=== PATIENT | male | born 1980 | race African-American/Black ===

== ENCOUNTER 2016-10-01 03:24 | Emergency (ER) | payer OTHER ==
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
[2016-10-01] MEDS ORDERED: diazePAM 5 MG TABLET PO ONE (04:01)
[2016-10-01] MEDS ORDERED: diazePAM 5 MG TABLET ONE (04:13)
[2016-10-01 04:19] VITALS: PULSE 73; BMI 29.5
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
[2016-10-01 12:16] VITALS: BP 110/70; TEMP 97.3
== END 2016-10-01 11:48 | disposition home or self-care (01) ==
LOC: JER 03:24
DX: F41.1 Generalized anxiety disorder (principal); I25.10 Atherosclerotic heart disease of native coronary artery without angina pectoris; I10 Essential (primary) hypertension; Z95.5 Presence of coronary angioplasty implant and graft; Z87.891 Personal history of nicotine dependence; I25.2 Old myocardial infarction; I50.9 Heart failure, unspecified; Q87.418 Marfan syndrome with other cardiovascular manifestations; R01.1 Cardiac murmur, unspecified
CPT/HCPCS: 99283-25

== ENCOUNTER 2016-10-12 03:58 | Emergency (ER) | payer OTHER ==
[2016-10-12 04:11] VITALS: TEMP 98; BMI 25.5
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
[2016-10-12 07:20] VITALS: BP 119/69; PULSE 57
--- NOTE | 2016-10-12 07:45 | PDOC ---
*Physical Exam - Vital Signs Last Vital Signs Temp Pulse Resp BP Pulse Ox 98 F 57 L 14 119/69 100 10/12/16 04:09 10/12/16 07:19 10/12/16 07:19 10/12/16 07:19 10/12/16 07:19 - Physical Exam General Appearance: Yes: Nourished HEENT: positive: Normal Voice Respiratory/Chest: positive: Lungs Clear Cardiovascular: positive: Regular Rate Gastrointestinal/Abdominal: positive: Flat, Soft Musculoskeletal: positive: Normal Inspection Extremity: positive: Normal Inspection Integumentary: positive: Dry, Warm Neurologic: positive: Fully Oriented, Alert ED Treatment Course - LABORATORY CBC & Chemistry Diagram: 10/12/16 08:00 Medical Decision Making - Medical Decision Making 10/12/16 07:43 I have received report from ANTONY Taveras regarding this patient. Pt's initial chief complaint: anxiety and PSTD Pt's work up completed prior to sign out: ordered was labs and tox levels and monitor for symptoms Pt treatment given from prior staff: none at current Pt plan to be completed: PT needs evaluation by psych and labs to monitored. Dispo: pending psych 10/12/16 08:36 Labs remain pending. Second call out to Dr. Sears for psych evaluation and pending return phone call Pt was moved to holding area however, pt did not want to move within the ER He signed out AMA refusing to wait for psych and being moved. *DC/Admit/Observation/Transfer Diagnosis at time of Disposition: Anxiety disorder Qualifiers: Anxiety disorder type: unspecified anxiety disorder Qualified Code(s): F41.9 - Anxiety disorder, unspecified - Discharge Dispostion Disposition: AGAINST MEDICAL ADVICE Condition at time of disposition: Unchanged/Unknown
[2016-10-12 08:34] LABS: URINE MARIJUANA THC NEGATIVE ng/ml (CUTOFF=50)
[2016-10-12 08:41] LABS: BASOPHIL 0.7 % (0-2.0); EOSINOPHIL 3.4 % (0-4.5); MCH 28.9 pg (25.7-33.7); MCHC 33.1 g/dl (32.0-35.9); MEAN CELL VOLUME 87.2 fl (80-96); MEAN PLT VOLUME 7.6 fl (7.5-11.1); NEUTROPHILS 57.6 % (42.8-82.8); PLATELET COUNT 186 K/MM3 (134-434); RDW 16.5 % (11.9-15.9); WHITE BLOOD COUNT 4.9 K/mm3 (4.0-10.0)
[2016-10-12 08:41] LABS: URINE APPEARANCE CLEAR; URINE BILIRUBIN NEGATIVE (NEGATIVE); URINE BLOOD NEGATIVE (NEGATIVE); URINE COLOR YELLOW; URINE GLUCOSE (UA) NEGATIVE (NEGATIVE); URINE KETONE NEGATIVE (NEGATIVE); URINE LEUK ESTERASE NEGATIVE (NEGATIVE); URINE NITRITE NEGATIVE (NEGATIVE); URINE PROTEIN NEGATIVE (NEGATIVE); URINE UROBILINOGEN 2.0 E.U/dl E.U./dl (0.2-1.0)
[2016-10-12 08:46] LABS: ALBUMIN 3.4 g/dl (3.4-5.0); ANION GAP 7 (8-16); BILIRUBIN,TOTAL 0.4 mg/dL (0.2-1.0); CALCIUM 8.8 mg/dL (8.5-10.1); CO2 28 mmol/L (21-32); CREATININE 0.8 mg/dL (0.7-1.3); GLUCOSE,RANDOM 93 mg/dL (74-106); SGOT/AST 16 U/L (15-37); SGPT/ALT 13 U/L (12-78); TOT PROT 6.1 g/dl (6.4-8.2)
[2016-10-12 08:54] LABS: ALK PHOS 69 U/L (45-117); THYROID STIMULATING HORMONE 0.81 uIU/ml (0.358-3.74); TROPONIN I < 0.02 ng/ml (0.00-0.05)
[2016-10-12 09:04] LABS: SALICYLATE < 4.0 mg/dl (0.0-30.0)
== END 2016-10-12 08:59 | disposition left against medical advice (07) ==
LOC: JER 03:58
DX: F41.9 Anxiety disorder, unspecified (principal)
CPT/HCPCS: 36415; 80053; 80307; 81003; 82550; 82553; 84443; 84484; 85025; 99281-25

== ENCOUNTER → 2016-12-03 | Emergency (ER) | payer OTHER ==
[~2016-12-03] MED LIST: HYDROmorphone HCL CARPU-JECT 1 MG/1 ML DISP.SYRIN IVPUSH ONE; HYDROmorphone HCL CARPU-JECT 2 MG/1 ML DISP.SYRIN ONE
[2016-12-03 06:08] VITALS: TEMP 97.5; BMI 30.4
--- NOTE | 2016-12-03 06:39 | PDOC ---
History of Present Illness - General Chief Complaint: Chest Pain Stated Complaint: CHEST PAIN Time Seen by Provider: 12/03/16 06:33 History Source: Patient Exam Limitations: No Limitations - History of Present Illness Initial Comments: 12/03/16 06:35 This is a 36-year-old male who comes in complaining of chest pain radiating to his back. 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 Patient said pain is similar to his aortic dissection in the past. Patient said pain began at 11 PM but did not come in until he got off work at a [employer] job. Patient says he is ALLERGIC to iodine dye as well as multiple other ALLERGIES. Patient says that he has had 7 stents placed in his artery. PAST MEDICAL HISTORY: no significant history PAST SURGICAL HISTORY: no significant history FAMILY HISTORY: no pertinant history SOCIAL HISTORY: Pt lives with family and is employed. MEDICATIONS: reviewed ALLERGIES: As per nursing notes Review of Systems General: No fevers or chills, no weakness, no weight loss HEENT: No change in vision. No sore throat,. No ear pain CardioVascular: + chest pain, no shortness of breath Respiratory:No cough, or wheezing. Gastrointestinal: no nausea, vomitting, diarrhea or constipation, No rectal bleeding Genitourinary: No dysuria, hematuria, or frequency Musculoskeletal: No joint or muscle pain or swelling Neurologic: No headache, vertigo, dizziness or loss of consciousness Psychiatric: nor depression Skin: No rashes or easy bruising Endocrine: no increased thirst or abnormal weight change Allergic: no skin or latex allergy All other systems reviewed and normal Exam: General: Well-nourished well-developed individual, no acute distress HEENT: Throat: Normal, tonsils normal, no erythema or exudate Neck: Supple, no meningeal signs, no lymphadenopathy Eyes::Pupils equal reactive and round, extraocular motion intact Chest: Nontender to palpation Cardiac: S1-S2 normal, regular rate and rhythm, no murmurs rubs or gallops Respiratory: Lungs clear to auscultation bilateral Abdomen: Soft, nondistended, normal bowel sounds, nontender to palpation diffusely, no palpable pulsatile mass. Extremities: Warm, dry, no cyanosis, clubbing, or edema Skin: No rashes Neuro: Alert and oriented x3, nonfocal exam, grossly intact, normal gait Psych: Normal mood and affect 04/22/17 06:42 Case discussed in detail with oncoming Emergency Physician Dr. Gaviria, including history, physical exam and ancillary studies. Oncoming Emergency Physician has assumed care for the patient and will complete the evaluation and treatment. Patient is aware of the plan. Pt is clinically unchanged and stable. Past History - Past Medical History Allergies/Adverse Reactions: Allergies Allergy/AdvReac Type Severity Reaction Status Date / Time Fish Containing Products Allergy Intermediate Hives Verified 10/12/16 04:08 acetaminophen [From Tylenol] Allergy Verified 10/12/16 04:08 aspirin Allergy Verified 10/12/16 04:08 ibuprofen [From Motrin] Allergy Verified 10/12/16 04:08 iodine Allergy Verified 10/12/16 04:08 nitroglycerin Allergy Verified 10/12/16 04:08 NSAIDS (Non-Steroidal Allergy Verified 10/12/16 04:08 Anti-Inflamma pseudoephedrine Allergy Verified 10/12/16 04:08 CONTRAST Allergy Uncoded 10/12/16 04:08 Home Medications: Ambulatory Orders Atorvastatin Ca [Lipitor] 40 mg PO HS 05/08/15 Clopidogrel Bisulfate [Plavix -] 75 mg PO DAILY 05/08/15 Furosemide [Lasix -] 40 mg PO DAILY 05/08/15 Hydrochlorothiazide [Hctz -] 12.5 mg PO DAILY 12/09/15 Zolpidem Tartrate [Ambien] 10 mg PO HS 12/03/16 Cardiac Disorders: Yes (CHF, 7 STENTS, 7MI, murmur) HTN: Yes Hypercholesterolemia: Yes Psychiatric Problems: Yes (anxiety) Other medical history: MARPHANS - Surgical History Abdominal Surgery: Yes (AORTIC DISECTION) Cardiac Surgery: Yes (7 STENTS) - Family Disease History Family Disease History: Diabetes: Brother, Heart Disease: Father (marfans syndrome), Brother - Immunization History Immunization Up to Date: Yes - Psycho/Social/Smoking Cessation Hx Anxiety: No Suicidal Ideation: No Smoking History: Never smoked Have you smoked in the past 12 months: Yes Number of Cigarettes Smoked Daily: 0 'Breaking Loose' booklet given: 06/17/15 Hx Alcohol Use: No Drug/Substance Use Hx: No Substance Use Type: None Hx Substance Use Treatment: No *Physical Exam - Vital Signs Last Vital Signs Temp Pulse Resp BP Pulse Ox 97.5 F L 63 16 117/69 99 12/03/16 06:00 12/03/16 08:58 12/03/16 08:58 12/03/16 08:58 12/03/16 08:58 ED Treatment Course - LABORATORY CBC & Chemistry Diagram: 12/03/16 07:15 12/03/16 07:15 - ADDITIONAL ORDERS Additional order review: 12/03/16 07:15 RBC 4.30 MCV 87.2 MCHC 33.3 RDW 15.1 D MPV 7.3 L Neutrophils % 74.8 Lymphocytes % 16.3 D Monocytes % 8.4 Eosinophils % 0.1 D Basophils % 0.4 - Medications Given in the ED: ED Medications Discontinued Medications Generic Name Dose Route Start Last Admin Trade Name Freq PRN Reason Stop Dose Admin Hydromorphone HCl 1 mg 12/03/16 06:53 12/03/16 07:05 Dilaudid Injection - IVPUSH 12/03/16 06:54 1 mg ONCE ONE Administration Hydromorphone HCl 0.5 mg 12/03/16 08:25 12/03/16 08:57 Dilaudid Injection - IVPUSH 12/03/16 08:26 0.5 mg ONCE ONE Administration *DC/Admit/Observation/Transfer Diagnosis at time of Disposition: Chest pain - Discharge Dispostion Disposition: TRANSFER ACUTE CARE/OTHER HOSP Condition at time of disposition: Stable - Referrals Referrals: STAFF,NOT ON [Non Staff, Medical] -
--- NOTE | 2016-12-03 06:53 | PDOC ---
*Physical Exam - Vital Signs Last Vital Signs Temp Pulse Resp BP Pulse Ox 97.5 F L 67 16 112/69 98 12/03/16 06:00 12/03/16 06:00 12/03/16 06:00 12/03/16 06:00 12/03/16 06:00 - Physical Exam Comments: 12/03/16 06:51 Sign-out received from outgoing Emergency Physician Pt interviewed and examined Ancillary studies reviewed The patient is a 36 year old male with a significant past medical history of Marfan's disease, prior abdominal aortic dissection, coronary artery disease ( status post several stents), hypertension, hyperlipidemia, diastolic CHF, who presents to the emergency department after he had the acute onset of chest and epigastric pain, which radiates to his back. He describes it as sharp and tearing. It does not radiate to his arms, or further into his abdomen than his epigastrium. He denies nausea, diaphoresis, dyspnea. He states it is very similar to the pain that he had with his previous abdominal aortic dissection. He states that he is ALLERGIC to IV contrast dye. He states that his allergy is "anaphyplaxis" and qualifies that his "throat closes." I asked him about the CTA he had on 07/15/16. He said that this was the occasion of the anaphylaxis and says he got "hives all over" that his "throat closed" and that he "nearly ," despite receiving "lots of medications." I discussed the risks and benefits of premedication with Benadryl and Solumedrol and he refuses. I explained these things using lay terminology. I answered all of his questions. He adamantly refuses IV contrast and understands that , as we do not have ROSALIA available, we are unable to evaluate him for possible aortic dissection at this facility. He also understands that the delay in diagnosis could result in permanent disability and even . He adamantly refuses transfer to [facility]. I am paging his [facility] inside outside sales representative (Dr. Ellingtno) and [facility] inside outside sales representative (Dr. Martinez). Will not administer aspirin or anticoagulation at this point, given the possibility of dissection. His blood pressure is well-controlled, and he does not require any antihypertensives. Radial and Ulnar pulses full and symmetric DP and PT pulses full and symmetric Bilateral upper extremity blood pressures equal No upper or lower extremity deficits to light touch or temperature He states these having very severe pain, though he seems extremely comfortable. He states that he is ALLERGIC to aspirin, Tylenol, NSAIDs, and that only Dilaudid helps his pain. Will administer 1 mg of IV Dilaudid. Will attempt stat transfer to another facility that can obtain ROSALIA Will obtain non-contrast CT of the chest/abdomen and pelvis 12/03/16 07:[address] Bateman, cardiology He suggests transfer to [facility] Accepting physician will be Dr. Prashant Estrada and Dr. Prashant Cunningham CCU attending will contact us Records reviewed from [facility] CTA chest/abd/pelvis on 07/15/16 was within normal limits TTE on 07/16/16 was within normal limits Myocardial Perfusion Scan 10/28/15was within normal limits 12/03/16 07:16 The patient says that his pain is much improved after Dilaudid I placed a 20 gauge IV in his right external jugular vein BP remains in an acceptable range [facility] not [facility] Awaiting contact from [facility] Will repeat EKG 12/03/16 07:19 Repeat EKG noted, unchanged, without any ischemic changes Awaiting travnsfer 12/03/16 07:20 Case discussed the case with the [facility], "[place]" Dr. Estrada and Dr. Cunningham have accepted the patient to the CCU They are arranging for STAT transfer 12/03/16 07:49 The patient remains stable His pain has subsided 12/03/16 08:02 Case discussed with [employer] Salesperson at [facility] Awaiting transportation 12/03/16 08:07 EMS is 15 minutes out histotechnologist supervisor is here Will obtain STAT CT CAP 12/03/16 08:24 Labs noted, including d-dimer less than 200 Troponin pending We are awaiting transfer 12/03/16 08:31 ED Treatment Course - LABORATORY CBC & Chemistry Diagram: 12/03/16 07:15 12/03/16 07:15 Medical Decision Making - Critical Care Time Total Critical Care Time (minutes): 45 Critical Care Statement: The care of this patient involved high complexity decision making to prevent further life threatening deterioration of the patient 's condition and/or to evalute & treat vital organ system(s) failure or risk of failure. *DC/Admit/Observation/Transfer Diagnosis at time of Disposition: Chest pain - Discharge Dispostion Disposition: TRANSFER ACUTE CARE/OTHER HOSP Condition at time of disposition: Stable - Transfer to Acute Care Facility Receiving Facility: [facility] Accepting Physician:: Dr. Estrada
[2016-12-03 07:49] LABS: BASOPHIL 0.4 % (0-2.0); EOSINOPHIL 0.1 % (0-4.5); MCHC 33.3 g/dl (32.0-35.9); MEAN CELL VOLUME 87.2 fl (80-96); MEAN PLT VOLUME 7.3 fl (7.5-11.1); NEUTROPHILS 74.8 % (42.8-82.8); PLATELET COUNT 228 K/MM3 (134-434); RDW 15.1 % (11.9-15.9); WHITE BLOOD COUNT 7.2 K/mm3 (4.0-10.8)
[2016-12-03 08:04] LABS: CPK(DFH) 234 IU/L (38-174)
[2016-12-03 08:05] LABS: ALBUMIN 3.8 g/dl (3.5-5.0); ALK PHOS 50 U/L (32-92); ANION GAP 5 (8-16); BILIRUBIN,TOTAL 0.9 mg/dl (0.2-1.0); CALCIUM 9.1 mg/dl (8.4-10.2); CO2 25 mmol/L (22-28); COCKROFT - GAULT 180.24; CREATININE 0.9 mg/dl (0.6-1.3); GLUCOSE,RANDOM 91 mg/dl (74-106); SGOT/AST 20 U/L (10-42); SGPT/ALT 12 U/L (10-40); TOT PROT 6.4 g/dl (6.4-8.3)
[2016-12-03 08:58] VITALS: BP 117/69; PULSE 63
[2016-12-03 09:03] LABS: TROPONIN I (DFP) < 0.03 ng/ml (0.03-0.50)
[2016-12-03 10:12] LABS: CK MB 9.5 ng/ml (0.3-4.0)
--- NOTE | 2016-12-06 09:59 | EKG ---
Test Reason : Blood Pressure : / mmHG Vent. Rate : 052 BPM Atrial Rate : 052 BPM P-R Int : 172 ms QRS Dur : 092 ms QT Int : 420 ms P-R-T Axes : 074 089 046 degrees QTc Int : 390 ms SINUS BRADYCARDIA WHEN COMPARED WITH ECG OF 03-DEC-2016 06:19, NO SIGNIFICANT CHANGE WAS FOUND Confirmed by MD HUMPHREYS MARJORY ([id number]) on 12/06/2016 9:59:00 AM Referred By: VAIBHAV PEDRAZA Confirmed By:RICARDO HUMPHREYS MD
--- NOTE | 2016-12-06 10:00 | EKG ---
Test Reason : Blood Pressure : / mmHG Vent. Rate : 061 BPM Atrial Rate : 061 BPM P-R Int : 166 ms QRS Dur : 086 ms QT Int : 418 ms P-R-T Axes : 000 075 030 degrees QTc Int : 420 ms NORMAL SINUS RHYTHM WHEN COMPARED WITH ECG OF 15-JUL-2016 13:57, SINUS RHYTHM HAS REPLACED JUNCTIONAL RHYTHM Confirmed by MD HUMPHREYS MARJORY ([id number]) on 12/06/2016 10:00:04 AM Referred By: MD CARR Confirmed By:RICARDO HUMPHREYS MD
== END | disposition short-term general hospital (02) ==
LOC: FER 05:55
PROC: 3E033NZ Introduction of Analgesics, Hypnotics, Sedatives into Peripheral Vein, Percutaneous Approach (ICD-10-PCS; principal; 2016-12-03)
DX: R07.9 Chest pain, unspecified (principal); Q87.40 Marfan syndrome, unspecified; I10 Essential (primary) hypertension; I50.9 Heart failure, unspecified; Z95.5 Presence of coronary angioplasty implant and graft; I25.2 Old myocardial infarction; R01.1 Cardiac murmur, unspecified
CPT/HCPCS: 36415; 71250-TC; 74176-TC; 80053; 82550; 82553; 84484; 85025; 85379; 93005; 99283-25

== ENCOUNTER 2017-01-05 18:04 | Observation (INO) | payer OTHER ==
[2017-01-05 18:16] VITALS: BMI 29.8
--- NOTE | 2017-01-05 18:23 | PDOC ---
History of Present Illness <Louis Bhatia - Last Filed: 01/05/17 21:47> <Bailey Chaney - Last Filed: 01/05/17 22:03> - General Chief Complaint: Chest Pain Stated Complaint: CHEST PAIN Time Seen by Provider: 01/05/17 18:23 - History of Present Illness Initial Comments: 01/05/17 19:26 Patient is a 36 year old male with significant medical hx of marfan syndrome, HLD, HTN, CHF, aortic dissection, NM x 7, and cardiac stents x 7 who is presenting to the ED with constant chest pain since 5:45 PM. Patient describes his pain as ripping and tearing with radiation to his back. He rates his pain 10/10 in severity. Patient states his pain has been so severe that he neglected to eat today. Denies any fevers, chills, cough, shortness of breath, nausea, vomiting, diaphoresis, lightheadedness, or palpitations. Patient endorses recent ICU admission one month ago for chest pain. Printer Helper: Augustine Ellington MD Allergies: fish containing products, acetaminophen, aspirin, ibuprofen, iodine, nitroglycerin, NSAIDS, pseudoephedrin (Beni Chaneyantha) Past History - Past Medical History Cardiac Disorders: Yes (CHF, 7 STENTS, 7MI, murmur) HTN: Yes Hypercholesterolemia: Yes Psychiatric Problems: Yes (anxiety) - Surgical History Abdominal Surgery: Yes (AORTIC DISECTION) Cardiac Surgery: Yes (7 STENTS) - Family Disease History Family Disease History: Diabetes: Brother, Heart Disease: Father (marfans syndrome), Brother - Immunization History Immunization Up to Date: Yes - Psycho/Social/Smoking Cessation Hx Anxiety: No Suicidal Ideation: No Smoking History: Never smoked Have you smoked in the past 12 months: Yes Number of Cigarettes Smoked Daily: 0 Information on smoking cessation initiated: No 'Breaking Loose' booklet given: 06/17/15 Hx Alcohol Use: No Drug/Substance Use Hx: No Substance Use Type: None Hx Substance Use Treatment: No <Louis Bhatia - Last Filed: 01/05/17 21:47> <Bailey Chaney - Last Filed: 01/05/17 22:03> - Past Medical History Allergies/Adverse Reactions: Allergies Allergy/AdvReac Type Severity Reaction Status Date / Time Fish Containing Products Allergy Intermediate Hives Verified 01/05/17 18:17 acetaminophen [From Tylenol] Allergy Verified 01/05/17 18:17 aspirin Allergy Verified 01/05/17 18:17 ibuprofen [From Motrin] Allergy Verified 01/05/17 18:17 iodine Allergy Verified 01/05/17 18:17 nitroglycerin Allergy Verified 01/05/17 18:17 NSAIDS (Non-Steroidal Allergy Verified 01/05/17 18:17 Anti-Inflamma pseudoephedrine Allergy Verified 01/05/17 18:17 CONTRAST Allergy Uncoded 01/05/17 18:17 Home Medications: Ambulatory Orders Atorvastatin Ca [Lipitor] 40 mg PO HS 05/08/15 Clopidogrel Bisulfate [Plavix -] 75 mg PO HS 05/08/15 Furosemide [Lasix -] 40 mg PO DAILY 05/08/15 Hydrochlorothiazide [Hctz -] 12.5 mg PO DAILY 12/09/15 Review of Systems <Louis Bhatia - Last Filed: 01/05/17 21:47> <Bailey Chaney - Last Filed: 01/05/17 22:03> - Review of Systems Comments:: 01/05/17 19:27 CONSTITUTIONAL: No fever, no chills, no fatigue EYES: No visual changes ENT: No ear pain, no sore throat CARDIOVASCULAR: Chest pain. No palpitations RESPIRATORY: No cough, no SOB GI: No abdominal pain, no nausea, no vomiting, no constipation, no diarrhea GENITOURINARY: No dysuria, no frequency, no hematuria MUSKULOSKELETAL: No backpain, no joint pain, no myalgias SKIN: No rash NEURO: No headache (Bailey Chaney) *Physical Exam <Louis Bhatia - Last Filed: 01/05/17 21:47> <Bailey Chaney - Last Filed: 01/05/17 22:03> - Vital Signs Last Vital Signs Temp Pulse Resp BP Pulse Ox 97.9 F 66 18 123/76 99 01/05/17 18:13 01/05/17 19:05 01/05/17 19:05 01/05/17 19:05 01/05/17 19:05 - Physical Exam Comments: 01/05/17 19:54 CONSTITUTIONAL: Well-appearing; well-nourished; in no apparent distress HEAD: Normocephalic; atraumatic EYES: PERRL; EOM intact ENMT: External appears normal; normal oropharynx NECK: Supple; non-tender; no cervical lymphadenopathy CARD: Normal S1, S2; no murmurs, rubs, or gallops RESP: Normal chest excursion with respiration; breath sounds clear and equal bilaterally; no wheezes, rhonchi, or rales ABD: Soft, non-distended; non-tender; no palpable organomegaly, no palpable hernias EXT: Normal ROM in all four extremities; non-tender to palpation; distal pulses intact SKIN: Warm, dry, no rash NEURO: No focal neurological deficiencies. (Bailey Chaney) Heart Score/ECG Review <Louis Bhatia - Last Filed: 01/05/17 21:47> <Bailey Chaney - Last Filed: 01/05/17 22:03> #1 01/05/17 19:36 Unusual P axis and short OR, probable junctional rhythm Abnormal ECG (Bailey Chaney) ED Treatment Course - LABORATORY CBC & Chemistry Diagram: 01/05/17 18:39 01/05/17 19:10 <Louis Bhatia - Last Filed: 01/05/17 21:47> - LABORATORY CBC & Chemistry Diagram: 01/05/17 18:39 01/05/17 19:10 <Bailey Chaney - Last Filed: 01/05/17 22:03> - ADDITIONAL ORDERS Additional order review: Laboratory Results 01/05/17 01/05/17 01/05/17 19:10 19:10 19:10 INR 1.05 D-Dimer < 200 Sodium Potassium Chloride Carbon Dioxide Anion Gap BUN Creatinine Creat Clearance w eGFR Random Glucose Calcium Total Bilirubin AST ALT Alkaline Phosphatase Creatine Kinase Creatine Kinase Index CK-MB (CK-2) CK-MB (CK-2) Rel Index Cancelled Troponin I Total Protein Albumin Blood Type Antibody Screen Spec Expiration Date 01/05/17 01/05/17 01/05/17 19:10 19:10 18:43 INR D-Dimer Sodium 139 Potassium 4.0 Chloride 105 Carbon Dioxide 24 Anion Gap 10 BUN 14 Creatinine 0.9 Creat Clearance w eGFR > 60 Random Glucose 83 Calcium 8.9 Total Bilirubin 0.8 D AST 22 D ALT 19 D Alkaline Phosphatase 79 Creatine Kinase 263 D Creatine Kinase Index 2.1 CK-MB (CK-2) 5.650 H CK-MB (CK-2) Rel Index Troponin I < 0.02 Total Protein 6.7 Albumin 4.0 Blood Type A NEGATIVE A NEGATIVE Antibody Screen Negative Cancelled Spec Expiration Date Cancelled 01/05/17 01/05/17 18:39 18:39 INR Cancelled D-Dimer Sodium Cancelled Potassium Cancelled Chloride Cancelled Carbon Dioxide Cancelled Anion Gap Cancelled BUN Cancelled Creatinine Cancelled Creat Clearance w eGFR Cancelled Random Glucose Cancelled Calcium Cancelled Total Bilirubin Cancelled AST Cancelled ALT Cancelled Alkaline Phosphatase Cancelled Creatine Kinase Cancelled Creatine Kinase Index CK-MB (CK-2) CK-MB (CK-2) Rel Index Troponin I Cancelled Total Protein Cancelled Albumin Cancelled Blood Type Antibody Screen Spec Expiration Date 01/05/17 18:39 RBC 4.42 MCV 86.3 MCHC 32.8 RDW 16.2 H MPV 7.6 Neutrophils % 57.9 Lymphocytes % 31.8 Monocytes % 8.7 Eosinophils % 0.7 Basophils % 0.9 - RADIOLOGY Radiograph Interpretation: 01/05/17 19:34 Chest X-Ray Impression: Normal chest. Reported By: Rober Murphy MD 01/05/17 22:02 Aorta US Impression: No evidence of AAA. Reported By: Rober Murphy MD Chest CT Impression: No evidence of thoracic aortic aneurysm or acute pathology within the chest. Please see discussion. Reported By: Rober Murphy MD (Bailey Chaney) - Medications Given in the ED: ED Medications Discontinued Medications Generic Name Dose Route Start Last Admin Trade Name Surjitq PRN Reason Stop Dose Admin Morphine Sulfate 4 mg 01/05/17 19:31 01/05/17 19:49 Morphine Injection - IVPUSH 01/05/17 19:32 4 mg ONCE ONE Administration Medical Decision Making <Louis Bhatia - Last Filed: 01/05/17 21:47> <Bailey Chaney - Last Filed: 01/05/17 22:03> - Medical Decision Making 01/05/17 19:59 Patient is a 36-year-old male with history of Marfan syndrome, abdominal aortic dissection treated intravascularly and last [place], numerous coronary artery stents, CHF presents to the ER complaining of atraumatic, severe substernal chest discomfort radiating to the back which she describes as staring which started approximately one hour and 15 minutes prior to arrival. In the ER, patient is awake and alert, playing video games when not interacting with ER staff. Patient's chest x-ray reveals no evidence of cardiomegaly or mediastinal widening. Patient's heart rate is 63 with unusual P axis and short OR interval but no evidence of acute ischemia. Patient's blood pressure in both upper extremities is normal and equal. Patient's femoral and radial pulses are equal bilaterally. Review of patient's previous medical records indicates numerous admissions for similar complaints. In July of 2016 patient underwent a CTA of chest which revealed no evidence of aortic dissection or aneurysm. Patient claims that he developed severe anaphylactic-like reaction as a result of contrast infusion and is vehemently refusing any additional studies that involve IV contrast administration. Patient also claims that he is ALLERGIC to gadolinium (also anaphylactic in nature). Patient was transferred to an outside facility in November of this year when he presented with similar complaints the very ER. The patient states that after a period of observation in CCU, he did not undergo a ROSALIA and was released. I discussed the case with Dr. Heart of cardiology. At this time, the probability the patient is suffering an acute dissection is relatively low. Will obtain d-dimer and of less than 500 , the likelihood of a dissection is extremely low. Will also obtain a noncontrast CT of chest to evaluate for mediastinal hematoma or mediastinal widening. Will admit to telemetry for cardiac monitoring and patient will undergo a ROSALIA in the a.m. 01/05/17 21:19 D-dimer is less than 200. CT of chest shows no evidence of widened mediastinum or mediastinal hematoma. Aortic ultrasound shows no evidence of dissection. My suspicion for dissection is extremely low. With a negative d-dimer is highly unlikely. Will place an obstacle on telemetry for serial cardiac enzymes and ROSALIA in the a.m. (Louis Bhatia) *DC/Admit/Observation/Transfer - Discharge Dispostion Admit: Yes <Louis Bhatia - Last Filed: 01/05/17 21:47> <Bailey Chaney - Last Filed: 01/05/17 22:03> Diagnosis at time of Disposition: Chest pain Qualifiers: Chest pain type: unspecified Qualified Code(s): R07.9 - Chest pain, unspecified - Attestations Scribe Attestion: 01/05/17 19:27 Documentation prepared by Bailey Chaney, acting as medical editor for Louis Bhatia MD. (Bailey Chaney) Physician Attestion: 01/05/17 19:59 The documentation was prepared by the scribe under my direct supervision. I have reviewed the documentation which correctly represents the findings, medical decision-making and critical action taken by me. (Louis Bhatia)
[2017-01-05 18:51] LABS: BASOPHIL 0.9 % (0-2.0); EOSINOPHIL 0.7 % (0-4.5); MCH 28.3 pg (25.7-33.7); MCHC 32.8 g/dl (32.0-35.9); MEAN CELL VOLUME 86.3 fl (80-96); MEAN PLT VOLUME 7.6 fl (7.5-11.1); NEUTROPHILS 57.9 % (42.8-82.8); PLATELET COUNT 228 K/MM3 (134-434); RDW 16.2 % (11.9-15.9); WHITE BLOOD COUNT 4.2 K/mm3 (4.0-10.0)
[2017-01-05 19:30] LABS: INR 1.05 (0.82-1.09); PROTHROMBIN TIME (PATIENT) 11.6 SEC (9.98-11.88)
[2017-01-05] MEDS ORDERED: morphine CARPU-JECT 4 MG/1 ML DISP.SYRIN IVPUSH ONE ×2 (19:31→22:19)
[2017-01-05] MEDS ORDERED: morphine CARPU-JECT 4 MG/1 ML DISP.SYRIN ONE ×2 (19:32→22:41)
[2017-01-05 20:05] LABS: ANION GAP 10 (8-16); BILIRUBIN,TOTAL 0.8 mg/dL (0.2-1.0); CALCIUM 8.9 mg/dL (8.5-10.1); CO2 24 mmol/L (21-32); COCKROFT - GAULT 176.6; CREATININE 0.9 mg/dL (0.7-1.3); GLUCOSE,RANDOM 83 mg/dL (74-106); SGPT/ALT 19 U/L (12-78); TOT PROT 6.7 g/dl (6.4-8.2)
[2017-01-05 20:09] LABS: ALK PHOS 79 U/L (45-117); TROPONIN I < 0.02 ng/ml (0.00-0.05)
[2017-01-05 20:20] LABS: SGOT/AST 22 U/L (15-37)
--- NOTE | 2017-01-05 23:39 | HP ---
CHIEF COMPLAINT: chest pain PCP: outside HISTORY OF PRESENT ILLNESS: This is a 36 year old male with a past medical history of Marfan syndrome, HLD, HTN, CHF, aortic dissection (AAA), MIx7 presented to the ED with chest pain since 545pm. He describes pain as tearing and radiates to his back. He denies SOB, palpitations. Pt presented to ED 12/03 with similar symptoms and was transferred to [facility] for further evaluation. Pt states that they observed him in the CCU and then he went home without any intervention. ER course was notable for: (1) Troponin negative (2) CT chest w/o indication of TAA (3) bedside sono of aorta by ED MD without sign of dissection Recent Travel: pt denies PAST MEDICAL HISTORY: Marfan syndrome Hyperlipidemia Hypertension CHF abdominal aortic dissection MIx7 PAST SURGICAL HISTORY: stent x 7 aortic dissection 07/2015 s/p repair with anaphylaxis to contrast Social History: Smoking: pt denies Alcohol: pt denies Drugs: pt denies Family History: father and brother with Marfan brother with DM mother with bipolar, COPD, HTN, HLD, [place] x 3 Allergies Fish Containing Products Allergy (Intermediate, Verified 01/05/17 18:17) Hives acetaminophen [From Tylenol] Allergy (Verified 01/05/17 18:17) aspirin Allergy (Verified 01/05/17 18:17) ibuprofen [From Motrin] Allergy (Verified 01/05/17 18:17) iodine Allergy (Verified 01/05/17 18:17) nitroglycerin Allergy (Verified 01/05/17 18:17) NSAIDS (Non-Steroidal Anti-Inflamma Allergy (Verified 01/05/17 18:17) pseudoephedrine Allergy (Verified 01/05/17 18:17) CONTRAST Allergy (Uncoded 01/05/17 18:17) HOME MEDICATIONS: 3 Medication Instructions Recorded Atorvastatin Ca [Lipitor] 40 mg PO HS 05/08/15 Clopidogrel Bisulfate [Plavix -] 75 mg PO HS 05/08/15 Furosemide [Lasix -] 40 mg PO DAILY 05/08/15 Hydrochlorothiazide [Hctz -] 12.5 mg PO DAILY 12/09/15 REVIEW OF SYSTEMS CONSTITUTIONAL: Absent: fever, chills, diaphoresis, generalized weakness, malaise, loss of appetite, weight change HEENT: Absent: rhinorrhea, nasal congestion, throat pain, throat swelling, difficulty swallowing, mouth swelling, ear pain, eye pain, visual changes CARDIOVASCULAR: Present: chest pain Absent: syncope, palpitations, irregular heart rate, lightheadedness, peripheral edema RESPIRATORY: Absent: cough, shortness of breath, dyspnea with exertion, orthopnea, wheezing, stridor, hemoptysis GASTROINTESTINAL: Absent: abdominal pain, abdominal distension, nausea, vomiting, diarrhea, constipation, melena, hematochezia GENITOURINARY: Absent: dysuria, frequency, urgency, hesitancy, hematuria, flank pain, genital pain MUSCULOSKELETAL: Absent: myalgia, arthralgia, joint swelling, back pain, neck pain SKIN: Absent: rash, itching, pallor HEMATOLOGIC/IMMUNOLOGIC: Absent: easy bleeding, easy bruising, lymphadenopathy, frequent infections ENDOCRINE: Absent: unexplained weight gain, unexplained weight loss, heat intolerance, cold intolerance NEUROLOGIC: Absent: headache, focal weakness or paresthesias, dizziness, unsteady gait, seizure, mental status changes, bladder or bowel incontinence PSYCHIATRIC: Absent: anxiety, depression, suicidal or homicidal ideation, hallucinations. PHYSICAL EXAMINATION Vital Signs - 24 hr 3 01/05/17 01/05/17 18:13 19:05 Temperature 97.9 F Pulse Rate 67 Pulse Rate [ 66 Right Apical] Respiratory 18 18 Rate Blood Pressure 147/86 Blood Pressure 123/76 [Left Arm] Blood Pressure 126/79 [Right Arm] O2 Sat by Pulse 98 99 Oximetry (%) GENERAL: Awake, alert, and fully oriented, in no acute distress. HEAD: Normal with no signs of trauma. EYES: Pupils equal, round and reactive to light, extraocular movements intact, sclera anicteric, conjunctiva clear. No lid lag. EARS, NOSE, THROAT: Ears normal, nares patent, oropharynx clear without exudates. Moist mucous membranes. NECK: Normal range of motion, supple without lymphadenopathy, JVD, or masses. LUNGS: Breath sounds equal, clear to auscultation bilaterally. No wheezes, and no crackles. No accessory muscle use. HEART: Regular rate and rhythm, normal S1 and S2 without murmur, rub or gallop. ABDOMEN: Soft, nontender, not distended, normoactive bowel sounds, no guarding, no rebound, no masses. No hepatomegaly or splenomegaly. MUSCULOSKELETAL: Normal range of motion at all joints. No bony deformities or tenderness. No CVA tenderness. UPPER EXTREMITIES: 2+ pulses, warm, well-perfused. No cyanosis. No clubbing. No peripheral edema. LOWER EXTREMITIES: 2+ pulses, warm, well-perfused. No calf tenderness. No peripheral edema. NEUROLOGICAL: Cranial nerves II-XII intact. Normal speech. Normal gait. PSYCHIATRIC: Cooperative. Good eye contact. Appropriate mood and affect. SKIN: Warm, dry, normal turgor, no rashes or lesions noted, normal capillary refill. Laboratory Results - last 24 hr 3 01/05/17 01/05/17 01/05/17 18:39 18:39 18:39 WBC 4.2 RBC 4.42 Hgb 12.5 Hct 38.2 MCV 86.3 MCHC 32.8 RDW 16.2 H Plt Count 228 D MPV 7.6 Neutrophils % 57.9 Lymphocytes % 31.8 Monocytes % 8.7 Eosinophils % 0.7 Basophils % 0.9 INR Cancelled D-Dimer Sodium Cancelled Potassium Cancelled Chloride Cancelled Carbon Dioxide Cancelled Anion Gap Cancelled BUN Cancelled Creatinine Cancelled Creat Clearance w eGFR Cancelled Random Glucose Cancelled Calcium Cancelled Total Bilirubin Cancelled AST Cancelled ALT Cancelled Alkaline Phosphatase Cancelled Creatine Kinase Cancelled Creatine Kinase Index CK-MB (CK-2) CK-MB (CK-2) Rel Index Troponin I Cancelled Total Protein Cancelled Albumin Cancelled Blood Type Antibody Screen Spec Expiration Date 3 01/05/17 01/05/17 01/05/17 18:43 19:10 19:10 WBC RBC Hgb Hct MCV MCHC RDW Plt Count MPV Neutrophils % Lymphocytes % Monocytes % Eosinophils % Basophils % INR 1.05 D-Dimer < 200 Sodium 139 Potassium 4.0 Chloride 105 Carbon Dioxide 24 Anion Gap 10 BUN 14 Creatinine 0.9 Creat Clearance w eGFR > 60 Random Glucose 83 Calcium 8.9 Total Bilirubin 0.8 D AST 22 D ALT 19 D Alkaline Phosphatase 79 Creatine Kinase 263 D Creatine Kinase Index 2.1 CK-MB (CK-2) 5.650 H CK-MB (CK-2) Rel Index Cancelled Troponin I < 0.02 Total Protein 6.7 Albumin 4.0 Blood Type A NEGATIVE A NEGATIVE Antibody Screen Cancelled Negative Spec Expiration Date Cancelled ECG: Unusual P axis (both inverted and biphasic P waves present), possible junctional rhythm, rate 58, QTC 412, no acute ST/T changes Imaging: US/AORTA US History provided: Rule out AAA. Real-time and Doppler examination of the abdominal aorta demonstrates the following: The abdominal aorta is normal in position and caliber with no evidence of aneurysmal dilatation. Doppler imaging demonstrates normal velocity arterial flow. IMPRESSION: No evidence of AAA. CHEST CT WITHOUT CONTRAST HISTORY PROVIDED: Rule out dissection TECHNIQUE: Sequential axial images were obtained from the thoracic inlet through the domes of the diaphragm. Examination of the mediastinum demonstrates no evidence of mediastinal masses, fluid collections or lymphadenopathy. The heart is not enlarged. There is no evidence of thoracic aortic aneurysm. Evaluation for dissection cannot be made without the use of intravenous contrast. The lung shah are free of pulmonary masses, areas of acute consolidation or pleural effusions. Evaluation of the upper abdomen demonstrates no acute abnormalities. There is no evidence of acute bony pathology. IMPRESSION: No evidence of thoracic aortic aneurysm or acute pathology within the chest. Please see above discussion. CHEST X-RAY PORTABLE* HISTORY PROVIDED: Chest pain. A single frontal portable projection of the chest at 6:40 PM is submitted. The heart size is within normal limits. The lung shah are free of pulmonary infiltrates or pleural effusions. IMPRESSION: Normal chest. ASSESSMENT/PLAN: 36yM with PMH Marfan syndrome, AAA s/p repair, MIx7, HTN, HLD presented to the ED with chest pain. He is being admitted for further observation. Chest pain - trend troponin - continuous cardiac monitoring - low suspicition for TA dissection given normal d-dimer and above studies normal - will keep NPO for ROSALIA in am as per ED MD d/w cardiology - cardiology consult appreciated. HTN/CHF/HLD - cont home medications. BP well controlled, no s/s fluid overload CAD with stents - cont home plavix DVT PPX - low risk, expected LOS <48h, defer chemoprophylaxis FEN - tolerating po fluids, defer IV for now - BMP in am with troponin - low sodium diet until MN, then NPO Dispo: Pt currently requires inpatient observation for management of their emergent condition. Visit type - Emergency Visit Emergency Visit: Yes ED Registration Date: 01/06/17 Care time: The patient presented to the Emergency Department on the above date and was hospitalized for further evaluation of their emergent condition. - New Patient This patient is new to me today: Yes Date on this admission: 01/06/17 - Critical Care Critical Care patient: No
[2017-01-06] MEDS ORDERED: morphine CARPU-JECT 2 MG/1 ML DISP.SYRIN IVPUSH ONE (03:11)
[2017-01-06 03:23] LABS: TROPONIN I < 0.02 ng/ml (0.00-0.05)
[2017-01-06] MEDS ORDERED: morphine CARPU-JECT 2 MG/1 ML DISP.SYRIN ONE (03:28)
[2017-01-06 08:22] LABS: BASOPHIL 0.6 % (0-2.0); EOSINOPHIL 1.5 % (0-4.5); MCH 28.4 pg (25.7-33.7); MCHC 32.8 g/dl (32.0-35.9); MEAN CELL VOLUME 86.5 fl (80-96); MEAN PLT VOLUME 7.5 fl (7.5-11.1); NEUTROPHILS 43.3 % (42.8-82.8); PLATELET COUNT 187 K/MM3 (134-434); RDW 16.2 % (11.9-15.9); WHITE BLOOD COUNT 3.3 K/mm3 (4.0-10.0)
--- NOTE | 2017-01-06 09:20 | EKG ---
Test Reason : Blood Pressure : / mmHG Vent. Rate : 058 BPM Atrial Rate : 058 BPM P-R Int : 138 ms QRS Dur : 094 ms QT Int : 420 ms P-R-T Axes : 270 084 053 degrees QTc Int : 412 ms UNUSUAL P AXIS, POSSIBLE ECTOPIC ATRIAL BRADYCARDIA ABNORMAL ECG Confirmed by DANYA CUEVAS MD ([id number]) on 01/06/2017 9:19:53 AM Referred By: Confirmed By:DANYA CUEVAS MD
[2017-01-06 09:24] LABS: ANION GAP 8 (8-16); CALCIUM 8.6 mg/dL (8.5-10.1); CO2 27 mmol/L (21-32); COCKROFT - GAULT 176.6; CREATININE 0.9 mg/dL (0.7-1.3); GLUCOSE,RANDOM 79 mg/dL (74-106)
[2017-01-06] MEDS ORDERED: FUROSEMIDE 40 MG TABLET (FP) PO SCH (10:00)
[2017-01-06] MEDS ORDERED: HYDROCHLOROTHIAZIDE 12.5 MG CAPSULE (FP) PO SCH (10:00)
[2017-01-06] MEDS ORDERED: morphine CARPU-JECT 2 MG/1 ML DISP.SYRIN IVPUSH PRN (10:45)
--- NOTE | 2017-01-06 11:02 | CON.CARD ---
Cardiology Consult (text) - Consultation Consultation Note: cc: cp hpi: 36 m hx marfans, cad/mi/multiple pcis (per pt, no cardiology f/u as outpt) , htn, dchf, hld here with cp. Pt has chronic intermittent cp. It is central, sharp, moderate, and is also felt in central back. No sob, palps, dizzy, loc, pnd, orthopnea, le edema. He has this cp every few months and has been evaluated here in past for same. Had episode yesterday so came to ER. Today still with cp/back pain but less. pmh: per hpi psh: pci social: no tob fam: no premature cad or scd ros: per hpi; no fever, nvd, cough, saldaña, nasal congestion, rash, gib, hematuria, wt loss meds: Ambulatory Orders Atorvastatin Ca [Lipitor] 40 mg PO HS 05/08/15 Clopidogrel Bisulfate [Plavix -] 75 mg PO HS 05/08/15 Furosemide [Lasix -] 40 mg PO DAILY 05/08/15 Hydrochlorothiazide [Hctz -] 12.5 mg PO DAILY 12/09/15 pe: Vital Signs Period Temp Pulse Resp BP Sys/Aguilera Pulse Ox Last 24 Hr 97.8 F-98.2 F 58-70 14-20 92-147/54-86 97-99 nad no jvd rrr s1s2 no mrg cta bl nl eff aaox3 no le e/c/c abd nt nd pos bs no jaundice diaphoresis pos dp pt no carotid bruit Laboratory Last Values WBC 3.3 K/mm3 (4.0-10.0) L 01/06/17 07:35 RBC 4.36 M/mm3 (4.00-5.60) 01/06/17 07:35 Hgb 12.4 GM/dL (11.7-16.9) 01/06/17 07:35 Hct 37.7 % (35.4-49) 01/06/17 07:35 MCV 86.5 fl (80-96) 01/06/17 07:35 MCHC 32.8 g/dl (32.0-35.9) 01/06/17 07:35 RDW 16.2 % (11.9-15.9) H 01/06/17 07:35 Plt Count 187 K/MM3 (134-434) 01/06/17 07:35 MPV 7.5 fl (7.5-11.1) 01/06/17 07:35 Neutrophils % 43.3 % (42.8-82.8) D 01/06/17 07:35 Lymphocytes % 45.0 % (8-40) H D 01/06/17 07:35 Monocytes % 9.6 % (3.8-10.2) 01/06/17 07:35 Eosinophils % 1.5 % (0-4.5) D 01/06/17 07:35 Basophils % 0.6 % (0-2.0) 01/06/17 07:35 INR 1.05 (0.82-1.09) 01/05/17 19:10 D-Dimer < 200 ng/ml (<200-235) 01/05/17 19:10 Sodium 141 mmol/L (136-145) 01/06/17 07:35 Potassium 4.4 mmol/L (3.5-5.1) 01/06/17 07:35 Chloride 106 mmol/L (98-107) 01/06/17 07:35 Carbon Dioxide 27 mmol/L (21-32) 01/06/17 07:35 Anion Gap 8 (8-16) 01/06/17 07:35 BUN 14 mg/dL (7-18) 01/06/17 07:35 Creatinine 0.9 mg/dL (0.7-1.3) 01/06/17 07:35 Creat Clearance w eGFR > 60 (>60) 01/05/17 19:10 Random Glucose 79 mg/dL (74-106) 01/06/17 07:35 Calcium 8.6 mg/dL (8.5-10.1) 01/06/17 07:35 Magnesium 2.0 mg/dL (1.8-2.4) 01/06/17 07:35 Total Bilirubin 0.8 mg/dL (0.2-1.0) D 01/05/17 19:10 AST 22 U/L (15-37) D 01/05/17 19:10 ALT 19 U/L (12-78) D 01/05/17 19:10 Alkaline Phosphatase 79 U/L (45-117) 01/05/17 19:10 Creatine Kinase 209 IU/L (39-308) D 01/06/17 02:45 Creatine Kinase Index 2.1 % (0.0-5.0) 01/05/17 19:10 CK-MB (CK-2) 5.650 ng/ml (0.5-3.6) H 01/05/17 19:10 CK-MB (CK-2) Rel Index Cancelled 01/05/17 19:10 Troponin I < 0.02 ng/ml (0.00-0.05) 01/06/17 02:45 Total Protein 6.7 g/dl (6.4-8.2) 01/05/17 19:10 Albumin 4.0 g/dl (3.4-5.0) 01/05/17 19:10 Blood Type A NEGATIVE 01/05/17 19:10 Antibody Screen Negative 01/05/17 19:10 Spec Expiration Date Cancelled 01/05/17 18:43 mibi 10/2015: 11 mins exercise, no ecg changes, nl mpi, nl lvef echo 07/2016: nl lv/rv, mild pr, nl size ao root ct chest 12/2016: normal thoracic aorta, clear lungs cta chest 09/2015 and 07/2016: no dissection/aneurysm tele: sr/sb ecg 01/05/17: sr, 58, nl intervals, no ischemic changes a/p: 36 m hx marfans, cad/mi/multiple pcis (per pt, no cardiology f/u as outpt) , htn, dchf, hld here with cp. cp: -no signs acs -ce's negx2, ecg w/o ischemic changes -normal mibi 10/2015 for same cp -he has hx marfans so dissection was ruled out with cta in 09/2015 and 07/2016 so low suspicion that current sxs are from dissection -pt has allergy to contrast and refuses mra/cta now. will plan for aba today to r/o dissection. if aba unremarkable ok for dc from cardiac pov. cad/mi/pci: -as above -nl lvef on recent echo, no ischemia on recent mibi -cont home statin, plavix (after aba), hctz htn: -cont hctz chronic diastolic chf: -stable, cont po lasix hld: -cont statin
[2017-01-06] MEDS: morphine CARPU-JECT 4 MG/1 ML DISP.SYRIN IVPUSH PRN ×2 (11:32→18:21)
[2017-01-06 11:53] LABS: TROPONIN I < 0.02 ng/ml (0.00-0.05)
[2017-01-06] MEDS ORDERED: LIDOCAINE HCL/PF 2% SDV 5ML VIAL ONE (13:49)
[2017-01-06] MEDS ORDERED: PROPOFOL 20 ML ONE ×2 (13:49)
[2017-01-06] MEDS ORDERED: ESMOLOL HCL 10 ML ONE (13:51)
--- NOTE | 2017-01-06 15:09 | PROC ---
Transesophageal Echocardiogram - Pre-Procedure Indications: Assess Aorta Risks and Benefits Explained: Yes Consent on Chart: Yes - Procedure Procedure Done: in Endoscopy Suite Medication given: sedation per anesthesia Findings: No aortic dissection seen Remarks: Normal ROSALIA, see echo report for further details.
[2017-01-06 16:48] VITALS: TEMP 98.2
--- NOTE | 2017-01-06 16:57 | DS ---
Physical Exam: SUBJECTIVE: Patient seen and examined. PT is tired after procedure. OBJECTIVE: Vital Signs Period Temp Pulse Resp BP Sys/Aguilera Pulse Ox Last 24 Hr 97.4 F-98.2 F 51-70 12-20 92-144/40-84 96-100 PE Neuro: alert, awake, cn 2-12intact Pulm: CTAB CV: s1 s2 rrr no mrg Abd: s nt nd + bs Ext: warm, no le edema Laboratory Results - last 24 hr 01/06/17 01/06/17 01/06/17 02:45 02:45 07:35 WBC 3.3 L RBC 4.36 Hgb 12.4 Hct 37.7 MCV 86.5 MCHC 32.8 RDW 16.2 H Plt Count 187 MPV 7.5 Neutrophils % 43.3 D Lymphocytes % 45.0 H D Monocytes % 9.6 Eosinophils % 1.5 D Basophils % 0.6 Sodium Potassium Chloride Carbon Dioxide Anion Gap BUN Creatinine Random Glucose Calcium Magnesium Creatine Kinase 209 D CK-MB (CK-2) Rel Index Cancelled Troponin I < 0.02 01/06/17 01/06/17 01/06/17 07:35 07:35 07:35 WBC RBC Hgb Hct MCV MCHC RDW Plt Count MPV Neutrophils % Lymphocytes % Monocytes % Eosinophils % Basophils % Sodium 141 Potassium 4.4 Chloride 106 Carbon Dioxide 27 Anion Gap 8 BUN 14 Creatinine 0.9 Random Glucose 79 Calcium 8.6 Magnesium 2.0 Creatine Kinase 171 Cancelled CK-MB (CK-2) Rel Index 2.6 Troponin I < 0.02 Cancelled HOSPITAL COURSE: Date of Admission:01/06/17 Date of Discharge: 01/06/17 Minutes to complete discharge: 35 Discharge Summary Reason For Visit: CHEST PAIN Current Active Problems Chest pain (Acute) CAD (coronary artery disease) (Chronic) Hospital Course: Initial Hospital Course: Briefly, this 36 year old male with a past medical history of Marfan syndrome, HLD, HTN, CHF, aortic dissection (AAA), MIx7 presented to the ED with chest pain since 545pm. He described pain as tearing and radiates to his back. He denied SOB, palpitations. Pt presented to ED 12/03 with similar symptoms and was transferred to [facility] for further evaluation. Pt was observed him in the CCU and then he went home without any intervention. Subsequent Hospital Course/Progress Note/Discharge Summary by a/p: Assessment: 36yM with PMH Marfan syndrome, AAA s/p repair, MIx7, HTN, HLD presented to the ED with chest pain. He is being admitted for further observation. Plan: 1. Chest pain - hx marfans; dissection was ruled out with cta in 09/2015 and 07/2016 - r/o ND serial trops x3 negative, no ischemic changes - Recent ECHO: NL LVEF, no ischemia on recent stress 10/2105 - ROSALIA today 01/06: negative for aortic dissection 2. Hypotension - Likely from sedation - 1L bolus with appropriate rise 3. HTN/CHF/HLD - HCTZ 12.5mg daily 4. CAD with stents - Can resume home plavix 5. HLD - Lipitor 40mg daily 6. Chronic diastolic HF - Lasix 40mg daily Dispo: - Home with above meds pcp and cardiology follow up Condition: Stable - Instructions Diet, Activity, Other Instructions: Please return to the ED for any new, persistent, or worsening symptoms. Follow up with your PCP in 1 week Follow up with your primary systems software specialist Resume home medications as directed Disposition: HOME - Home Medications Comprehensive Discharge Medication List: Ambulatory Orders Atorvastatin Ca [Lipitor] 40 mg PO HS 05/08/15 Clopidogrel Bisulfate [Plavix -] 75 mg PO HS 05/08/15 Furosemide [Lasix -] 40 mg PO DAILY 05/08/15 Hydrochlorothiazide [Hctz -] 12.5 mg PO DAILY 12/09/15
[2017-01-06] MEDS ORDERED: SODIUM CHLORIDE 1,000 ML IV STA (17:16)
[2017-01-06 18:20] VITALS: BP 124/64; PULSE 54
[2017-01-06] MEDS ORDERED: ATORVASTATIN CA 40 MG TABLET (FP) PO SCH (22:00)
[2017-01-06] MEDS ORDERED: CLOPIDOGREL BISULFATE 75 MG TABLET (FP) PO SCH (22:00)
--- NOTE | 2017-01-08 20:38 | EKG ---
Test Reason : Blood Pressure : / mmHG Vent. Rate : 063 BPM Atrial Rate : 063 BPM P-R Int : 134 ms QRS Dur : 098 ms QT Int : 388 ms P-R-T Axes : -85 075 042 degrees QTc Int : 397 ms ECTOPIC ATRIAL RHYTHM POOR R WAVE PROGRESSION ABNORMAL ECG WHEN COMPARED WITH ECG OF 03-DEC-2016 07:18, ECTOPIC ATRIAL RHYTHM HAS REPLACED SINUS BRADYCARDIA Confirmed by MICHA GONZALEZ, TAMAR ([id number]) on 01/08/2017 8:38:27 PM Referred By: Confirmed By:TAMAR MUSE MD
--- NOTE | 2017-01-08 21:09 | EKG ---
Test Reason : Blood Pressure : / mmHG Vent. Rate : 045 BPM Atrial Rate : 045 BPM P-R Int : 192 ms QRS Dur : 092 ms QT Int : 428 ms P-R-T Axes : 020 096 054 degrees QTc Int : 370 ms SINUS BRADYCARDIA RIGHTWARD AXIS EARLY REPOLARIZATION BORDERLINE ECG WHEN COMPARED WITH ECG OF 05-JAN-2017 21:57, P AXIS HAS CHANGED Confirmed by TAMAR MUSE MD ([id number]) on 01/08/2017 9:08:51 PM Referred By: RENETTA COX Confirmed By:TAMAR MUSE MD
== END 2017-01-06 21:00 | disposition home or self-care (01) ==
LOC: JER 18:04 → JERBED 21:47 → UNDOADMOB 01-06 00:55 → J4W 01-06 02:21 → JERBED 01-06 02:21 → UNDODISOB 01-06 21:00
PROVIDERS: ADMIT Internal Medicine; ATTEND Nurse Practitioner Acute Care
PROC: 3E033NZ Introduction of Analgesics, Hypnotics, Sedatives into Peripheral Vein, Percutaneous Approach (ICD-10-PCS; 2017-01-06)
PROC: 3E0337Z Introduction of Electrolytic and Water Balance Substance into Peripheral Vein, Percutaneous Approach (ICD-10-PCS; 2017-01-06)
PROC: B24BZZ4 Ultrasonography of Heart with Aorta, Transesophageal (ICD-10-PCS; principal; 2017-01-06 14:00)
DX: R07.9 Chest pain, unspecified (principal); I10 Essential (primary) hypertension; I50.32 Chronic diastolic (congestive) heart failure; I25.2 Old myocardial infarction; I71.00 Dissection of unspecified site of aorta; I25.10 Atherosclerotic heart disease of native coronary artery without angina pectoris; R01.1 Cardiac murmur, unspecified; Q87.40 Marfan syndrome, unspecified; E78.5 Hyperlipidemia, unspecified; Z95.5 Presence of coronary angioplasty implant and graft; F41.9 Anxiety disorder, unspecified
CPT/HCPCS: 36415; 71010-TC; 71250-TC; 76775-TC; 80048; 80053; 82550; 82553; 83735; 84484; 85025; 85379; 85610; 86850; 86900; 86901; 93005; 93010; 93312; 93325; 99285-25; G0378

== ENCOUNTER → 2017-01-31 | Emergency (ER) | payer OTHER ==
[~2017-01-31] MED LIST changes: +ALBUTEROL SO4 2.5/IPRATROPIUM 0.5 INH SOL 3 ML VIAL.NEB. NEB STA; +HYDROmorphone HCL CARPU-JECT 1 MG/1 ML DISP.SYRIN ONE; -HYDROmorphone HCL CARPU-JECT 2 MG/1 ML DISP.SYRIN ONE; +methylPREDNISolone NA SUCC 125 MG/2 ML VIAL IVPB ONE; +methylPREDNISolone NA SUCC 125 MG/2 ML VIAL ONE
[2017-01-31 23:35] VITALS: BMI 26.7
--- NOTE | 2017-01-31 23:38 | PDOC ---
History of Present Illness - General History Source: Patient Exam Limitations: No Limitations - History of Present Illness Initial Comments: 01/31/17 23:58 The patient is a 36 year old male with significant past medical history of multiple allergies, Marfan syndrome, hyperlipidemia, hypertension, CHF, aortic dissection (AAA), and MIx7 who presents to the ED for allergic reaction 15 minutes prior to arrival. Patient reports one of his family members accidentally switch the container of his hydromorphone that he normally takes for his chronic pain. He states there were aspirin and tylenol in the container and after taking them he immediately felt throat tightness, chest tightness, and had wheezing. He gave himself an epipen and subsequently, his symptoms somewhat resolved, however he is still short of breath. Denies hives, tongue swelling, or mouth swelling. The patient denies fever, chills, cough, chest pain, abdominal pain, nausea, vomiting, and diarrhea. Allergies: acetaminophen, aspirin, ibuprofen, iodine, nitroglycerin, NSAIDS, pseudoephedrine Social History: No alcohol, tobacco, or drug use reported. Past Surgical History: s/p cardiac stents x7; aortic dissection 07/2015 s/p repair with anaphylaxis to contrast Family History: Father and brother with Marfan. Brother with DM. Mother with bipolar, COPD, HTN, HLD, [place] x 3 PCP: Dr. Brando Chaudhry Cardio: Dr. Augustine Ellington <Laura Bryant - Last Filed: 01/31/17 23:58> - General History Source: Patient <Jose Xavier - Last Filed: 02/01/17 05:56> - General Chief Complaint: Allergic Reaction Stated Complaint: ALLERGIC REACTION Time Seen by Provider: 01/31/17 23:34 Past History <Laura Bryant - Last Filed: 01/31/17 23:58> - Past Medical History Cardiac Disorders: Yes (CHF, 7 STENTS, 7MI, murmur) HTN: Yes Hypercholesterolemia: Yes Psychiatric Problems: Yes (anxiety) - Surgical History Abdominal Surgery: Yes (AORTIC DISECTION) Cardiac Surgery: Yes (7 STENTS) - Family Disease History Family Disease History: Diabetes: Brother, Heart Disease: Father (marfans syndrome), Brother - Immunization History Immunization Up to Date: Yes - Psycho/Social/Smoking Cessation Hx Anxiety: No Suicidal Ideation: No Smoking History: Never smoked Have you smoked in the past 12 months: No Number of Cigarettes Smoked Daily: 0 Information on smoking cessation initiated: No 'Breaking Loose' booklet given: 06/17/15 Hx Alcohol Use: No Drug/Substance Use Hx: No Substance Use Type: None Hx Substance Use Treatment: No <DonnynatJose - Last Filed: 02/01/17 05:56> - Past Medical History Allergies/Adverse Reactions: Allergies Allergy/AdvReac Type Severity Reaction Status Date / Time Fish Containing Products Allergy Intermediate Hives Verified 01/31/17 23:29 acetaminophen [From Tylenol] Allergy Verified 01/31/17 23:29 aspirin Allergy Verified 01/31/17 23:29 ibuprofen [From Motrin] Allergy Verified 01/31/17 23:29 iodine Allergy Verified 01/31/17 23:29 nitroglycerin Allergy Verified 01/31/17 23:29 NSAIDS (Non-Steroidal Allergy Verified 01/31/17 23:29 Anti-Inflamma pseudoephedrine Allergy Verified 01/31/17 23:29 CONTRAST Allergy Uncoded 01/31/17 23:29 Home Medications: Ambulatory Orders Atorvastatin Ca [Lipitor] 40 mg PO HS 05/08/15 Clopidogrel Bisulfate [Plavix -] 75 mg PO HS 05/08/15 Furosemide [Lasix -] 40 mg PO DAILY 05/08/15 Hydrochlorothiazide [Hctz -] 12.5 mg PO DAILY 12/09/15 Diphenhydramine HCl [Benadryl Capsules -] 25 mg PO TID #20 capsule 02/01/17 Hydromorphone [Dilaudid -] 2 mg PO Q6H #12 tablet MDD 4 02/01/17 Loratadine [Claritin] 10 mg PO DAILY #30 tablet 02/01/17 Methylprednisolone [Medrol Dose Dustin] 4 mg PO ASDIR #21 tablet 02/01/17 Review of Systems - Review of Systems Able to Perform ROS?: Yes Comments:: 01/31/17 23:59 CONSTITUTIONAL: Absent: fever, no chills, no fatigue EYES: Absent: visual changes ENT: +throat tightness Absent: ear pain, no sore throat CARDIOVASCULAR: Absent: chest pain, no palpitations RESPIRATORY: +chest tightness, SOB, wheezing Absent: cough GI: Absent: abdominal pain, no nausea, no vomiting, no constipation, no diarrhea GENITOURINARY: Absent: dysuria, no frequency, no hematuria MUSCULOSKELETAL: Absent: back pain, no arthralgia, no myalgia SKIN: Absent: rash NEURO: Absent: headache <Laura Bryant - Last Filed: 01/31/17 23:58> *Physical Exam - Vital Signs Last Vital Signs Temp Pulse Resp BP Pulse Ox 98.6 F 78 18 130/86 99 01/31/17 23:29 01/31/17 23:29 01/31/17 23:29 01/31/17 23:29 01/31/17 23:29 - Physical Exam Comments: 01/31/17 23:59 GENERAL: Well-appearing, well-nourished. No apparent distress. HEENT: Normocephalic, atraumatic. PERRL, EOM intact. CARDIOVASCULAR: Normal S1, S2. Regular rate and rhythm. PULMONARY: Mild respiratory distress. Wheezing. Hot potato voice. Mild conversational dyspnea. Slight retractions. No drooling. +stridor ABDOMEN: Soft, non-distended, non-tender. EXTREMITIES: Normal ROM in all four extremities. No gross deformities. SKIN: Warm, dry. No rash NEUROLOGICAL: No focal neurological deficits. <Laura Bryant - Last Filed: 01/31/17 23:58> - Vital Signs Last Vital Signs Temp Pulse Resp BP Pulse Ox 98.6 F 78 18 130/86 99 01/31/17 23:29 01/31/17 23:29 01/31/17 23:29 01/31/17 23:29 01/31/17 23:29 <Jose Xavier - Last Filed: 02/01/17 05:56> ED Treatment Course - LABORATORY CBC & Chemistry Diagram: 01/31/17 23:50 01/31/17 23:50 - ADDITIONAL ORDERS Additional order review: 01/31/17 23:50 RBC 4.19 MCV 86.2 MCHC 32.7 RDW 16.6 H MPV 7.6 Neutrophils % 82.8 D Lymphocytes % 10.3 D Monocytes % 5.8 Eosinophils % 0.6 Basophils % 0.5 - Medications Given in the ED: ED Medications Discontinued Medications Generic Name Dose Route Start Last Admin Trade Name Freq PRN Reason Stop Dose Admin Albuterol/Ipratropium 1 amp 01/31/17 23:36 01/31/17 23:44 Duoneb - NEB 01/31/17 23:37 1 amp ONCE STA Administration Diphenhydramine HCl 25 mg 01/31/17 23:35 01/31/17 23:42 Benadryl Injection - IVPB 01/31/17 23:36 25 mg ONCE ONE Administration Methylprednisolone Sodium Succinate 125 mg 01/31/17 23:35 01/31/17 23:42 Solu-Medrol - IVPB 01/31/17 23:36 125 mg ONCE ONE Administration <Laura Bryant - Last Filed: 01/31/17 23:58> - LABORATORY CBC & Chemistry Diagram: 01/31/17 23:50 01/31/17 23:50 <Jose Xavier - Last Filed: 02/01/17 05:56> Medical Decision Making - Medical Decision Making 02/01/17 03:40 Pt feeling better. Speaking more clearly. States throat is still a little scratchy, but not as before. Will continue to observe. Dr. Xavier: The scribe's documentation has been prepared under my direction and personally reviewed by me in its entirery. I confirm that the note above accurately reflects all work, treatment, procedures, and medical decision making performed by me. 02/01/17 05:54 Pt feels better. No hoarseness to pt voice. NO wheezing. Pt to be discharged. Medications transmitted to Pharmacy. <Jose Xavier - Last Filed: 02/01/17 05:56> *DC/Admit/Observation/Transfer - Attestations Scribe Attestion: 02/01/17 00:00 Documentation prepared by Laura Bryant, acting as medical management trainer for Jose Xavier MD/DO. <Laura Bryant - Last Filed: 01/31/17 23:58> - Discharge Dispostion Admit: No <Jose Xavier - Last Filed: 02/01/17 05:56> Diagnosis at time of Disposition: Allergic reaction caused by a drug Qualifiers: Encounter type: initial encounter Qualified Code(s): T78.40XA - Allergy, unspecified, initial encounter - Discharge Dispostion Disposition: HOME Condition at time of disposition: Stable - Prescriptions Prescriptions: Diphenhydramine HCl [Benadryl Capsules -] 25 mg PO TID #20 capsule Loratadine [Claritin] 10 mg PO DAILY #30 tablet Hydromorphone [Dilaudid -] 2 mg PO Q6H #12 tablet MDD 4 Methylprednisolone [Medrol Dose Dustin] 4 mg PO ASDIR #21 tablet - Referrals Referrals: Brando Chaudhry [Primary Care Provider] - - Patient Instructions Printed Discharge Instructions: DI for Adverse Drug Reaction -- Allergic
[2017-01-31 23:57] LABS: BASOPHIL 0.5 % (0-2.0); EOSINOPHIL 0.6 % (0-4.5); MCH 28.1 pg (25.7-33.7); MCHC 32.7 g/dl (32.0-35.9); MEAN CELL VOLUME 86.2 fl (80-96); MEAN PLT VOLUME 7.6 fl (7.5-11.1); NEUTROPHILS 82.8 % (42.8-82.8); PLATELET COUNT 237 K/MM3 (134-434); RDW 16.6 % (11.9-15.9)
[2017-02-01 00:14] LABS: INR 1.03 (0.82-1.09); PROTHROMBIN TIME (PATIENT) 11.3 SEC (9.98-11.88)
[2017-02-01 00:25] LABS: ALBUMIN 3.9 g/dl (3.4-5.0); ANION GAP 6 (8-16); BILIRUBIN,TOTAL 0.4 mg/dL (0.2-1.0); CO2 30 mmol/L (21-32); GLUCOSE,RANDOM 103 mg/dL (74-106); SGOT/AST 13 U/L (15-37); SGPT/ALT 17 U/L (12-78); TOT PROT 6.5 g/dl (6.4-8.2)
[2017-02-01 00:28] LABS: ALK PHOS 79 U/L (45-117); TROPONIN I < 0.02 ng/ml (0.00-0.05)
[2017-02-01 06:03] VITALS: BP 132/84; PULSE 80; TEMP 98.4
== END | disposition home or self-care (01) ==
LOC: JER 23:13
PROC: 3E0F7GC Introduction of Other Therapeutic Substance into Respiratory Tract, Via Natural or Artificial Opening (ICD-10-PCS; principal; 2017-01-31)
PROC: 3E033NZ Introduction of Analgesics, Hypnotics, Sedatives into Peripheral Vein, Percutaneous Approach (ICD-10-PCS; 2017-01-31)
PROC: 3E0333Z Introduction of Anti-inflammatory into Peripheral Vein, Percutaneous Approach (ICD-10-PCS; 2017-01-31)
PROC: 3E033GC Introduction of Other Therapeutic Substance into Peripheral Vein, Percutaneous Approach (ICD-10-PCS; 2017-01-31)
DX: T50.991A Poisoning by other drugs, medicaments and biological substances, accidental (unintentional), initial encounter (principal); R06.2 Wheezing; R07.89 Other chest pain; Y92.018 Other place in single-family (private) house as the place of occurrence of the external cause
CPT/HCPCS: 36415; 80053; 82550; 82553; 84484; 85025; 85610; 94640; 96374; 96375; 99282-25

== ENCOUNTER 2017-02-09 01:31 | Emergency (ER) | payer OTHER ==
[2017-02-09 01:43] VITALS: BMI 29.0
[2017-02-09] MEDS ORDERED: DEXAMETHASONE SOD PHOSPHATE 10 MG/1 ML VIAL IM ONE (01:46)
--- NOTE | 2017-02-09 01:47 | PDOC ---
History of Present Illness - General History Source: Patient Exam Limitations: No Limitations - History of Present Illness Initial Comments: 02/09/17 02:00 The patient is a 36 year old male with significant past medical history of multiple allergies, Marfan syndrome, hyperlipidemia, hypertension, CHF, aortic dissection (AAA), and MIx7 who presents to the ED for SOB prior to arrival. Patient reports he was at a hospital [facility] today where he had a CT scan with IV contrast, which he states he is allergic to. After going home, he suddenly became short of breath, gave himself 3 epipens, and subsequently came here to the ER. At time of evaluation, patient only has complaints of SOB. Denies mouth swelling, tongue swelling, throat tightness, or hives. The patient denies fever, chills, diaphoresis, cough, chest pain, and palpitations. The patient denies abdominal pain, nausea, vomiting, and diarrhea. Allergies: acetaminophen, aspirin, ibuprofen, iodine, nitroglycerin, NSAIDS, pseudoephedrine, contrast Social History: No alcohol, tobacco, or drug use reported. Past Surgical History: s/p cardiac stents x7; aortic dissection 07/2015 s/p repair with anaphylaxis to contrast Family History: Father and brother with Marfan. Brother with DM. Mother with bipolar, COPD, HTN, HLD, [place] x 3 PCP: Dr. Brando Chaudhry Cardio: Dr. Augustine Ellington <Laura Bryant - Last Filed: 02/09/17 01:59> - General History Source: Patient <Jose Xavier - Last Filed: 02/09/17 06:06> - General Chief Complaint: Allergic Reaction Stated Complaint: ALLERGIC REACTION Time Seen by Provider: 02/09/17 01:46 Past History <Laura Bryant - Last Filed: 02/09/17 01:59> - Past Medical History Cardiac Disorders: Yes (CHF, 7 STENTS, 7MI, murmur) HTN: Yes Hypercholesterolemia: Yes Psychiatric Problems: Yes (anxiety) - Surgical History Abdominal Surgery: Yes (AORTIC DISECTION) Cardiac Surgery: Yes (7 STENTS) - Family Disease History Family Disease History: Diabetes: Brother, Heart Disease: Father (marfans syndrome), Brother - Immunization History Immunization Up to Date: Yes - Psycho/Social/Smoking Cessation Hx Anxiety: No Suicidal Ideation: No Smoking History: Never smoked Have you smoked in the past 12 months: No Number of Cigarettes Smoked Daily: 0 Information on smoking cessation initiated: No 'Breaking Loose' booklet given: 06/17/15 Hx Alcohol Use: No Drug/Substance Use Hx: No Substance Use Type: None Hx Substance Use Treatment: No <DucJose - Last Filed: 02/09/17 06:06> - Past Medical History Allergies/Adverse Reactions: Allergies Allergy/AdvReac Type Severity Reaction Status Date / Time Fish Containing Products Allergy Intermediate Hives Verified 02/09/17 01:41 acetaminophen [From Tylenol] Allergy Verified 02/09/17 01:41 aspirin Allergy Verified 02/09/17 01:41 ibuprofen [From Motrin] Allergy Verified 02/09/17 01:41 iodine Allergy Verified 02/09/17 01:41 nitroglycerin Allergy Verified 02/09/17 01:41 NSAIDS (Non-Steroidal Allergy Verified 02/09/17 01:41 Anti-Inflamma pseudoephedrine Allergy Verified 02/09/17 01:41 CONTRAST Allergy Uncoded 02/09/17 01:41 Home Medications: Ambulatory Orders Atorvastatin Ca [Lipitor] 40 mg PO HS 05/08/15 Clopidogrel Bisulfate [Plavix -] 75 mg PO HS 05/08/15 Furosemide [Lasix -] 40 mg PO DAILY 05/08/15 Hydrochlorothiazide [Hctz -] 12.5 mg PO DAILY 12/09/15 Diphenhydramine HCl [Benadryl Capsules -] 25 mg PO TID #20 capsule 02/01/17 Hydromorphone [Dilaudid -] 2 mg PO Q6H #12 tablet MDD 4 02/01/17 Loratadine [Claritin] 10 mg PO DAILY #30 tablet 02/01/17 Methylprednisolone [Medrol Dose Dustin] 4 mg PO ASDIR #21 tablet 02/01/17 Review of Systems - Review of Systems Able to Perform ROS?: Yes Comments:: 02/09/17 02:00 CONSTITUTIONAL: Absent: fever, no chills, no fatigue EYES: Absent: visual changes ENT: Absent: ear pain, no sore throat CARDIOVASCULAR: Absent: chest pain, no palpitations RESPIRATORY: +SOB Absent: cough GI: Absent: abdominal pain, no nausea, no vomiting, no constipation, no diarrhea GENITOURINARY: Absent: dysuria, no frequency, no hematuria MUSCULOSKELETAL: Absent: back pain, no arthralgia, no myalgia SKIN: Absent: rash NEURO: Absent: headache <Laura Bryant - Last Filed: 02/09/17 01:59> *Physical Exam - Vital Signs Last Vital Signs Temp Pulse Resp BP Pulse Ox 98.5 F 80 16 131/88 100 02/09/17 01:41 02/09/17 01:41 02/09/17 01:41 02/09/17 01:41 02/09/17 01:41 - Physical Exam Comments: 02/09/17 02:00 GENERAL: Well-appearing, well-nourished. No apparent distress. HEENT: Normocephalic, atraumatic. PERRL, EOM intact. No drooling. No hot potato voice. CARDIOVASCULAR: Normal S1, S2. Regular rate and rhythm. PULMONARY: No respiratory distress. No conversational dyspnea. No retractions. Clear to auscultation bilaterally. No stridor. ABDOMEN: Soft, non-distended, non-tender. EXTREMITIES: Normal ROM in all four extremities. No gross deformities. SKIN: Warm, dry. No rash NEUROLOGICAL: No focal neurological deficits. <Laura Bryant - Last Filed: 02/09/17 01:59> - Vital Signs Last Vital Signs Temp Pulse Resp BP Pulse Ox 98.5 F 80 16 131/88 100 02/09/17 01:41 02/09/17 01:41 02/09/17 01:41 02/09/17 01:41 02/09/17 01:41 <Jose Xavier - Last Filed: 02/09/17 06:06> Medical Decision Making - Medical Decision Making 02/09/17 06:06 Dr. Xavier: The scribe's documentation has been prepared under my direction and personally reviewed by me in its entirery. I confirm that the note above accurately reflects all work, treatment, procedures, and medical decision making performed by me. <Jose Xavier - Last Filed: 02/09/17 06:06> *DC/Admit/Observation/Transfer - Attestations Scribe Attestion: 02/09/17 02:00 Documentation prepared by Laura Bryant, acting as medical assisting instructor for Jose Xavier MD/DO. <Laura Bryant - Last Filed: 02/09/17 01:59> - Discharge Dispostion Admit: No <Jose Xavier - Last Filed: 02/09/17 06:06> Diagnosis at time of Disposition: Allergic reaction - Discharge Dispostion Disposition: HOME Condition at time of disposition: Stable - Patient Instructions Printed Discharge Instructions: DI for General Allergic Reactions
[2017-02-09] MEDS ORDERED: DEXAMETHASONE SOD PHOSPHATE 10 MG/1 ML VIAL ONE (02:42)
[2017-02-09 06:19] VITALS: BP 126/77; PULSE 78; TEMP 97.9
== END 2017-02-09 06:21 | disposition home or self-care (01) ==
LOC: JER 01:31
PROC: 3E023GC Introduction of Other Therapeutic Substance into Muscle, Percutaneous Approach (ICD-10-PCS; principal; 2017-02-09)
DX: T78.40XA Allergy, unspecified, initial encounter (principal); X58.XXXA Exposure to other specified factors, initial encounter; Q87.40 Marfan syndrome, unspecified; E78.5 Hyperlipidemia, unspecified; I10 Essential (primary) hypertension; I50.9 Heart failure, unspecified; I25.2 Old myocardial infarction; Z95.5 Presence of coronary angioplasty implant and graft
CPT/HCPCS: 99281-25

== ENCOUNTER 2017-02-23 22:48 | Emergency (ER) | payer OTHER ==
[2017-02-23] MEDS ORDERED: DEXAMETHASONE SOD PHOSPHATE 10 MG/1 ML VIAL IM ONE (22:55)
--- NOTE | 2017-02-23 22:55 | PDOC ---
History of Present Illness - General Chief Complaint: Allergic Reaction Stated Complaint: ALLERGIC RX Time Seen by Provider: 02/23/17 22:54 History Source: Patient Exam Limitations: No Limitations - History of Present Illness Initial Comments: 02/23/17 22:57 This is a 36-year-old male who comes in complaining that he accidentally swallowed 800 mg of Motrin taking they were his Dilaudid and he says he is ALLERGIC to ibuprofen. Patient says that he has an anaphylactic reaction to ibuprofen if he takes it. Patient in the emergency room however was noted to have normal blood pressure and normal heart rate. Patient took the ibuprofen approximately 20 minutes prior to coming into the emergency room. Patient vitals were otherwise normal with a normal O2 sats and no acute respiratory distress. There was no rash or any other sign of ALLERGIC reaction. PAST MEDICAL HISTORY: no significant history PAST SURGICAL HISTORY: no significant history FAMILY HISTORY: no pertinant history SOCIAL HISTORY: Pt lives with family and is employed. MEDICATIONS: reviewed ALLERGIES: As per nursing notes Review of Systems General: No fevers or chills, no weakness, no weight loss HEENT: No change in vision. No sore throat,. No ear pain CardioVascular: No chest pain or shortness of breath Respiratory:No cough, or wheezing. Gastrointestinal: no nausea, vomitting, diarrhea or constipation, No rectal bleeding Genitourinary: No dysuria, hematuria, or frequency Musculoskeletal: No joint or muscle pain or swelling Neurologic: No headache, vertigo, dizziness or loss of consciousness Psychiatric: nor depression Skin: No rashes or easy bruising Endocrine: no increased thirst or abnormal weight change Allergic: no skin or latex allergy All other systems reviewed and normal Exam: General: Well-nourished well-developed individual, no acute distress HEENT: Throat: Normal, tonsils normal, no erythema or exudate, there is no angioedema of the posterior oropharynx Neck: Supple, no meningeal signs, no lymphadenopathy Eyes::Pupils equal reactive and round, extraocular motion intact Chest: Nontender to palpation Cardiac: S1-S2 normal, regular rate and rhythm, no murmurs rubs or gallops Respiratory: Lungs clear to auscultation bilateral, there is very mild wheezing bilateral but good air entry and no use of accessory muscles Abdomen: Soft, nondistended, normal bowel sounds, nontender to palpation diffusely Extremities: Warm, dry, no cyanosis, clubbing, or edema Skin: No rashes Neuro: Alert and oriented x3, nonfocal exam, grossly intact, normal gait Psych: Normal mood and affect 02/23/17 22:59 Patient will be given Benadryl, Decadron and a DuoNeb and observed for one to 2 hours to make sure symptoms do not develop 02/23/17 23:49 Reevaluation Wheezing is resolved at this point patient is comfortable vitals are still normal. 02/24/17 00:43 Patient remains asymptomatic vitals remained stable patient discharged home with prescription for Medrol Dosepak and told to continue Benadryl as needed. Past History - Past Medical History Allergies/Adverse Reactions: Allergies Allergy/AdvReac Type Severity Reaction Status Date / Time Fish Containing Products Allergy Intermediate Hives Verified 02/09/17 01:41 acetaminophen [From Tylenol] Allergy Verified 02/09/17 01:41 aspirin Allergy Verified 02/09/17 01:41 ibuprofen [From Motrin] Allergy Verified 02/09/17 01:41 iodine Allergy Verified 02/09/17 01:41 nitroglycerin Allergy Verified 02/09/17 01:41 NSAIDS (Non-Steroidal Allergy Verified 02/09/17 01:41 Anti-Inflamma pseudoephedrine Allergy Verified 02/09/17 01:41 CONTRAST Allergy Uncoded 02/09/17 01:41 Home Medications: Ambulatory Orders Atorvastatin Ca [Lipitor] 40 mg PO HS 05/08/15 Clopidogrel Bisulfate [Plavix -] 75 mg PO HS 05/08/15 Furosemide [Lasix -] 40 mg PO DAILY 05/08/15 Hydrochlorothiazide [Hctz -] 12.5 mg PO DAILY 12/09/15 Diphenhydramine HCl [Benadryl Capsules -] 25 mg PO TID #20 capsule 02/01/17 Hydromorphone [Dilaudid -] 2 mg PO Q6H #12 tablet MDD 4 02/01/17 Loratadine [Claritin] 10 mg PO DAILY #30 tablet 02/01/17 Methylprednisolone [Medrol Dose Dustin] 4 mg PO ASDIR #21 tablet 02/01/17 Methylprednisolone [Medrol Dose Dustin] 4 mg PO ASDIR #21 tablet 02/23/17 Cardiac Disorders: Yes (CHF, 7 STENTS, 7MI, murmur) HTN: Yes Hypercholesterolemia: Yes Psychiatric Problems: Yes (anxiety) - Surgical History Abdominal Surgery: Yes (AORTIC DISECTION) Cardiac Surgery: Yes (7 STENTS) - Family Disease History Family Disease History: Diabetes: Brother, Heart Disease: Father (marfans syndrome), Brother - Immunization History Immunization Up to Date: Yes - Psycho/Social/Smoking Cessation Hx Anxiety: No Suicidal Ideation: No Smoking History: Never smoked Have you smoked in the past 12 months: No Number of Cigarettes Smoked Daily: 0 'Breaking Loose' booklet given: 06/17/15 Hx Alcohol Use: No Drug/Substance Use Hx: No Substance Use Type: None Hx Substance Use Treatment: No *DC/Admit/Observation/Transfer Diagnosis at time of Disposition: Acute allergic reaction Qualifiers: Encounter type: initial encounter Qualified Code(s): T78.40XA - Allergy, unspecified, initial encounter - Discharge Dispostion Disposition: HOME Condition at time of disposition: Stable Admit: No - Prescriptions Prescriptions: Methylprednisolone [Medrol Dose Dustin] 4 mg PO ASDIR #21 tablet - Referrals Referrals: STAFF,NOT ON [Primary Care Provider] - - Patient Instructions Printed Discharge Instructions: DI for Adverse Drug Reaction -- Allergic Additional Instructions: In the future do not let anyone give your medication make sure that you take medication yourself and make sure that you take the correct medication. If symptoms return you can take Benadryl one tablet as often as every 4-6 hours In addition to that take the Medrol Dosepak as prescribed Return to the emergency department immediately with ANY new, persistent or worsening symptoms. Continue any medications as previously prescribed by your physician. You should follow up with your primary doctor as soon as possible regarding today's emergency department visit. . Please make sure your doctor reviews the results of your emergency evaluation. Thank you for coming to the Emergency Department today for your care. It was a pleasure to see you today. Please note that your evaluation is INCOMPLETE until you follow-up with your doctor.
[2017-02-23 23:19] VITALS: TEMP 98; BMI 24.3
[2017-02-24 00:48] VITALS: BP 109/70; PULSE 67
== END 2017-02-24 00:56 | disposition home or self-care (01) ==
LOC: FER 22:48
PROC: 3E023GC Introduction of Other Therapeutic Substance into Muscle, Percutaneous Approach (ICD-10-PCS; principal; 2017-02-23)
DX: T78.40XA Allergy, unspecified, initial encounter (principal); X58.XXXA Exposure to other specified factors, initial encounter; Y93.89 Activity, other specified; Y92.9 Unspecified place or not applicable; I10 Essential (primary) hypertension; I71.00 Dissection of unspecified site of aorta; Z95.5 Presence of coronary angioplasty implant and graft; E78.00 Pure hypercholesterolemia, unspecified; F41.9 Anxiety disorder, unspecified; I50.9 Heart failure, unspecified; R01.1 Cardiac murmur, unspecified
CPT/HCPCS: 99282-25

== ENCOUNTER 2017-02-24 07:26 | Observation (INO) | payer OTHER ==
[2017-02-24 07:36] VITALS: BMI 30.9
--- NOTE | 2017-02-24 08:02 | PDOC ---
Attending Attestation - Resident Resident Name: RosaJayden - HPI HPI: 02/24/17 10:52 Pt presents to the ED complaining of a one day history of chest pain. History of marfan's syndrome. Patient claims that he had a dissection that was repaired at [facility] in December. - Physicial Exam PE: 02/24/17 12:22 Exam is unremarkable. Patient appears extremely comfortable. - Medical Decision Making 02/24/17 12:22 Pt presents to the ED complaining of sudden onset severe chest pain that he states is consistent with prior pain that he's had with dissections. Patient has had multiple visits here with negative work up, requesting narcotics for pain control, reports allergies to tylenol and NSAIDs. Reports that he has adverse reactions to contrast if not given full 24 hour premedication protocol. Normotensive. The patient may be drug seeking, but given his history of marfan's, and his reported history of multiple dissections and stents, I feel that the patient needs to be ruled out for both dissection and ACS. Initial troponin is negative. Will begin 24 hour premedication protocol for CT angio to rule out dissection.
--- NOTE | 2017-02-24 08:42 | PDOC ---
History of Present Illness - General Chief Complaint: Chest Pain Stated Complaint: CHEST PAIN Time Seen by Provider: 02/24/17 07:43 History Source: Patient Exam Limitations: No Limitations - History of Present Illness Initial Comments: 02/24/17 08:41 Patient is a 36M with history of marfan's, "lower dissection" s/p repair "through leg", HTN, HLD, and CHF here today complaining of chest pain. The pain started yesterday while at work. Associated symptoms include nausea, vomiting, sweats and diarrhea. He reports one episode of watery non-bloody, non-bilious emesis. He reports one episode watery non-bloody diarrhea. He says the chest pain starts below his sternum, radiates to his back and both shoulders. He states that he was admitted to [facility] in December or November, where he underwent a "lower dissection". He denies shortness of breath. Reports anaphylaxis allergies to Iodine, CT contrast, aspirin, tylenol, MRI contrast, nitro and fish. Past History - Past Medical History Allergies/Adverse Reactions: Allergies Allergy/AdvReac Type Severity Reaction Status Date / Time Fish Containing Products Allergy Intermediate Hives Verified 02/24/17 07:29 acetaminophen [From Tylenol] Allergy Verified 02/24/17 07:29 aspirin Allergy Verified 02/24/17 07:29 ibuprofen [From Motrin] Allergy Verified 02/24/17 07:29 iodine Allergy Verified 02/24/17 07:29 nitroglycerin Allergy Verified 02/24/17 07:29 NSAIDS (Non-Steroidal Allergy Verified 02/24/17 07:29 Anti-Inflamma pseudoephedrine Allergy Verified 02/24/17 07:29 CONTRAST Allergy Uncoded 02/24/17 07:29 Home Medications: Ambulatory Orders Atorvastatin Ca [Lipitor] 40 mg PO HS 05/08/15 Clopidogrel Bisulfate [Plavix -] 75 mg PO HS 05/08/15 Furosemide [Lasix -] 40 mg PO DAILY 05/08/15 Hydrochlorothiazide [Hctz -] 12.5 mg PO DAILY 12/09/15 Diphenhydramine HCl [Benadryl Capsules -] 25 mg PO TID #20 capsule 02/01/17 Hydromorphone [Dilaudid -] 2 mg PO Q6H #12 tablet MDD 4 06/21/17 Loratadine [Claritin] 10 mg PO DAILY #30 tablet 02/01/17 Methylprednisolone [Medrol Dose Dustin] 4 mg PO ASDIR #21 tablet 02/01/17 Methylprednisolone [Medrol Dose Dustin] 4 mg PO ASDIR #21 tablet 02/23/17 Cardiac Disorders: Yes (CHF, 7 STENTS, 7MI, murmur,bradycardia) HTN: Yes Hypercholesterolemia: Yes Psychiatric Problems: Yes (anxiety) Other medical history: marfan syndrome - Surgical History Abdominal Surgery: Yes (AORTIC DISECTION repair) Cardiac Surgery: Yes (7 STENTS) - Family Disease History Family Disease History: Diabetes: Brother, Heart Disease: Father (marfans syndrome), Brother - Immunization History Immunization Up to Date: Yes - Psycho/Social/Smoking Cessation Hx Anxiety: No Suicidal Ideation: No Smoking History: Never smoked Have you smoked in the past 12 months: No Number of Cigarettes Smoked Daily: 0 Information on smoking cessation initiated: No 'Breaking Loose' booklet given: 06/17/15 Hx Alcohol Use: No Drug/Substance Use Hx: No Substance Use Type: None Hx Substance Use Treatment: No Review of Systems - Review of Systems Constitutional: Yes: Chills, Diaphoresis. No: Fever HEENTM: No: Blurred Vision, Recent change in vision Respiratory: No: Cough, Shortness of Breath, SOB with Exertion, SOB at Rest Cardiac (ROS): Yes: Chest Pain, Lightheadedness ABD/GI: Yes: Diarrhea, Nausea, Vomiting. No: Constipated : No: Dysuria Musculoskeletal: Yes: Back Pain Neurological: No: Headache *Physical Exam - Vital Signs Last Vital Signs Temp Pulse Resp BP Pulse Ox 98.4 F 80 18 118/70 98 02/24/17 10:00 02/24/17 10:00 02/24/17 10:00 02/24/17 10:02/24/17 10:00 - Physical Exam Comments: 02/24/17 09:10 Gen: Well nourished, in no acute distress. HEENT: Normocephalic, atraumatic CV: RRR, no murmurs rubs or gallops Lung: Clear to auscultation bilaterally, normal work of breathing Abd: Soft, nontender Ext: 2+ pulses in both extremities, no edema Neuro: Alert, oriented, CN2-12 intact. No focal neuro deficits ED Treatment Course - LABORATORY CBC & Chemistry Diagram: 02/24/17 08:07 02/24/17 08:07 - ADDITIONAL ORDERS Additional order review: Laboratory Results 02/24/17 02/24/17 08:07 08:07 INR 0.94 Sodium 140 Potassium 5.3 H D Chloride 107 Carbon Dioxide 27 Anion Gap 6 L BUN 17 Creatinine 0.8 Creat Clearance w eGFR > 60 Random Glucose 82 D Calcium 8.4 L Total Bilirubin 0.4 AST 39 H D ALT 20 Alkaline Phosphatase 53 D Creatine Kinase 274 D Troponin I < 0.02 Total Protein 5.7 L Albumin 3.0 L D 02/24/17 08:07 RBC 4.19 MCV 87.5 MCHC 32.7 RDW 17.6 H MPV 7.4 L Neutrophils % Y Lymphocytes % Y - RADIOLOGY Radiology Studies Ordered: Category Date Time Status CHEST PA & LAT [RAD] Stat Radiology 02/24/17 08:07 Completed - Medications Given in the ED: ED Medications Discontinued Medications Generic Name Dose Route Start Last Admin Trade Name Freq PRN Reason Stop Dose Admin Prednisone 50 mg 02/24/17 09:54 02/24/17 09:59 Deltasone - PO 02/24/17 09:55 50 mg ONCE ONE Administration Medical Decision Making - Medical Decision Making 02/24/17 09:16 36M with history of Marfan's, "lower dissection repair" in december or november, CHF, HTN, s/p stents x7, and MIx7 here today complaining of chest pain. Vital signs are normal and stable in the ED. Differential diagnosis includes aortic dissection, ACS, lung blebs and others. Will admit to obs for pretreatment for CT contrast allergy. 02/24/17 09:29 EKG shows T-wave inversions in lead III. Regular rate, normal sinus rhythm, normal axis, normal intervals. CXR is normal. 02/24/17 10:38 Labs normal, trop negative. Pretreatment for CT started. CT due for 23:00. 02/24/17 10:48 Discussed with medicine, admitted to observation tele under Dr Pires. *DC/Admit/Observation/Transfer Diagnosis at time of Disposition: Chest pain in adult - Discharge Dispostion Condition at time of disposition: Guarded Admit: Yes Decision to Admit order Date/Time: Decision to Admit Order Category Date Time Status Decision to Admit to Hospital Routine Admission 02/24/17 10:45 Active - Transfer to Acute Care Facility Accepting Physician:: Pranay - Attestations Physician Attestion: 02/24/17 10:49 I, Dr. Jayden Lee, attest that this document has been prepared under my direction and personally reviewed by me in its entirety. I further attest, that it accurately reflects all work, treatment, procedures and medical decision -making performed by me.
[2017-02-24 09:24] LABS: MCH 28.6 pg (25.7-33.7); MCHC 32.7 g/dl (32.0-35.9); MEAN CELL VOLUME 87.5 fl (80-96); MEAN PLT VOLUME 7.4 fl (7.5-11.1); PLATELET COUNT 196 K/MM3 (134-434); RDW 17.6 % (11.9-15.9); WHITE BLOOD COUNT 10.6 K/mm3 (4.0-10.0)
[2017-02-24 09:48] LABS: INR 0.94 (0.82-1.09); PROTHROMBIN TIME (PATIENT) 10.3 SEC (9.98-11.88)
[2017-02-24 09:51] LABS: ANION GAP 6 (8-16); BILIRUBIN,TOTAL 0.4 mg/dL (0.2-1.0); CALCIUM 8.4 mg/dL (8.5-10.1); CO2 27 mmol/L (21-32); CREATININE 0.8 mg/dL (0.7-1.3); GLUCOSE,RANDOM 82 mg/dL (74-106); SGPT/ALT 20 U/L (12-78); TOT PROT 5.7 g/dl (6.4-8.2)
[2017-02-24 09:53] LABS: ALK PHOS 53 U/L (45-117); TROPONIN I < 0.02 ng/ml (0.00-0.05)
[2017-02-24] MEDS ORDERED: predniSONE 20 MG TABLET (UD) PO ONE ×3 (09:54→22:00)
[2017-02-24 10:06] LABS: SGOT/AST 39 U/L (15-37)
[2017-02-24] MEDS ORDERED: ONDANSETRON 4 MG/2 ML VIAL IVPB PRN (10:44)
--- NOTE | 2017-02-24 10:47 | HP ---
CHIEF COMPLAINT: Chest pain PCP: Dr. 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 He reports that the pain is "ripping and tearing" in character, radiates to the back, and is intermittent. He states that it first began while he was at rest. It has not been relieved with oral dilaudid which he states was prescribed to him following a knee surgery. 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 [employer], lives with Smoking: Never smoker Alcohol: None Drugs: None Family History: Father and brother with Marfan's syndrome (father from aortic dissection), mother with CAD (living) Allergies Fish Containing Products Allergy (Intermediate, Verified 02/24/17 07:29) Hives acetaminophen [From Tylenol] Allergy (Verified 02/24/17 07:29) aspirin Allergy (Verified 02/24/17 07:29) ibuprofen [From Motrin] Allergy (Verified 02/24/17 07:29) iodine Allergy (Verified 02/24/17 07:29) nitroglycerin Allergy (Verified 02/24/17 07:29) NSAIDS (Non-Steroidal Anti-Inflamma Allergy (Verified 02/24/17 07:29) pseudoephedrine Allergy (Verified 02/24/17 07:29) CONTRAST Allergy (Uncoded 02/24/17 07:29) HOME MEDICATIONS: Home Medications Medication Instructions Recorded Atorvastatin Ca [Lipitor] 40 mg PO HS 05/08/15 Clopidogrel Bisulfate [Plavix -] 75 mg PO HS 05/08/15 Furosemide [Lasix -] 40 mg PO DAILY 05/08/15 Hydrochlorothiazide [Hctz -] 12.5 mg PO DAILY 12/09/15 Diphenhydramine HCl [Benadryl 25 mg PO TID #20 capsule 02/01/17 Capsules -] Hydromorphone [Dilaudid -] 2 mg PO Q6H #12 tablet MDD 4 02/01/17 Loratadine [Claritin] 10 mg PO DAILY #30 tablet 02/01/17 Methylprednisolone [Medrol Dose 4 mg PO ASDIR #21 tablet 02/01/17 Dustin] Methylprednisolone [Medrol Dose 4 mg PO ASDIR #21 tablet 02/23/17 Dustin] REVIEW OF SYSTEMS CONSTITUTIONAL: Absent: fever, chills, diaphoresis, generalized weakness, malaise, loss of appetite, weight change HEENT: Absent: rhinorrhea, nasal congestion, throat pain, throat swelling, difficulty swallowing, mouth swelling, ear pain, eye pain, visual changes CARDIOVASCULAR: See HPI RESPIRATORY: Absent: cough, shortness of breath, dyspnea with exertion, orthopnea, wheezing, stridor, hemoptysis GASTROINTESTINAL: Absent: abdominal pain, abdominal distension, nausea, vomiting, diarrhea, constipation, melena, hematochezia GENITOURINARY: Absent: dysuria, frequency, urgency, hesitancy, hematuria, flank pain, genital pain MUSCULOSKELETAL: Absent: myalgia, arthralgia, joint swelling, back pain, neck pain SKIN: Absent: rash, itching, pallor HEMATOLOGIC/IMMUNOLOGIC: Absent: easy bleeding, easy bruising, lymphadenopathy, frequent infections ENDOCRINE: Absent: unexplained weight gain, unexplained weight loss, heat intolerance, cold intolerance NEUROLOGIC: Absent: headache, focal weakness or paresthesias, dizziness, unsteady gait, seizure, mental status changes, bladder or bowel incontinence PSYCHIATRIC: Absent: anxiety, depression, suicidal or homicidal ideation, hallucinations. PHYSICAL EXAMINATION Vital Signs - 24 hr 02/24/17 02/24/17 02/24/17 07:30 08:07 09:04 Temperature 97.9 F 98.1 F Pulse Rate 78 84 Pulse Rate [ 85 Left Apical] Respiratory 18 18 Rate Blood Pressure 139/75 Blood Pressure 132/74 [Left Arm] O2 Sat by Pulse 100 98 98 Oximetry (%) 02/24/17 02/24/17 09:07 10:00 Temperature 98.2 F 98.4 F Pulse Rate Pulse Rate [ 77 80 Left Apical] Respiratory 18 18 Rate Blood Pressure Blood Pressure 117/72 118/70 [Left Arm] O2 Sat by Pulse 99 98 Oximetry (%) GENERAL: Awake, alert, and fully oriented, in no acute distress. HEAD: Normal with no signs of trauma. EYES: Pupils equal, round and reactive to light, extraocular movements intact, sclera anicteric, conjunctiva clear. No lid lag. EARS, NOSE, THROAT: Ears normal, nares patent, oropharynx clear without exudates. Moist mucous membranes. NECK: Normal range of motion, supple without lymphadenopathy, JVD, or masses. LUNGS: Breath sounds equal, clear to auscultation bilaterally. No wheezes, and no crackles. No accessory muscle use. HEART: Regular rate and rhythm, normal S1 and S2 without murmur, rub or gallop. ABDOMEN: Soft, nontender, not distended, normoactive bowel sounds, no guarding, no rebound, no masses. No hepatomegaly or splenomegaly. MUSCULOSKELETAL: Normal range of motion at all joints. No bony deformities or tenderness. No CVA tenderness. UPPER EXTREMITIES: 2+ pulses, warm, well-perfused. No cyanosis. No clubbing. No peripheral edema. LOWER EXTREMITIES: 2+ pulses, warm, well-perfused. No calf tenderness. No peripheral edema. NEUROLOGICAL: Cranial nerves II-XII intact. Normal speech. Normal gait. PSYCHIATRIC: Cooperative. Good eye contact. Appropriate mood and affect. SKIN: Warm, dry, normal turgor, no rashes or lesions noted, normal capillary refill. Laboratory Results - last 24 hr 02/24/17 02/24/17 02/24/17 08:07 08:07 08:07 WBC 10.6 H D RBC 4.19 Hgb 12.0 Hct 36.6 MCV 87.5 MCH 28.6 MCHC 32.7 RDW 17.6 H Plt Count 196 MPV 7.4 L Neutrophils % Y Lymphocytes % Y INR 0.94 Sodium 140 Potassium 5.3 H D Chloride 107 Carbon Dioxide 27 Anion Gap 6 L BUN 17 Creatinine 0.8 Creat Clearance w eGFR > 60 Random Glucose 82 D Calcium 8.4 L Total Bilirubin 0.4 AST 39 H D ALT 20 Alkaline Phosphatase 53 D Creatine Kinase 274 D Troponin I < 0.02 Total Protein 5.7 L Albumin 3.0 L D Search Terms: , 1980 Search Date: 02/24/2017 04:41:17 PM The Drug Utilization Report below displays all of the controlled substance prescriptions, if any, that your patient has filled in the last twelve months. The information displayed on this report is compiled from pharmacy submissions to the Department, and accurately reflects the information as submitted by the pharmacies. This report was requested by: Fiona Vigil | Reference #: [id number] Others' Prescriptions Patient Name: Papito Garrido Date: 1980 Address: [address] [place] [address] Sex: Male Rx Written Rx Dispensed Drug Quantity Days Supply Prescriber Name 02/01/2017 02/02/2017 hydromorphone 2 mg tablet 12 3 Jose Xavier DO 10/31/2016 10/31/2016 zolpidem tartrate 10 mg tablet 15 15 Nannette Sultana MD 10/19/2016 10/20/2016 zolpidem tartrate 10 mg tablet 14 14 Zuleyma Miner 03/15/2016 03/15/2016 hydromorphone 2 mg tablet 60 15 Rakesh Rubin MD ASSESSMENT/PLAN: 36 year old male placed in observation for chest pain. Problem List - Problem (1) Chest pain in adult Assessment/Plan: -Purported history of Marfan's and aortic dissections; however multiple imaging studies here show no evidence of this (ROSALIA 01/06/17, aorta and renal u/s 01/05/17 , chest CT 01/05/17, CT abd/pelvis 12/03/16, chest/thorax CTA 07/15/16) -Refuses transfer to [facility] -Patient cannot recall name of PCP and internet search for "Dr. Zoya Enciso" unrevealing -Records requested from [facility] (release faxed) -Patient states he is on daily oral dilaudid at home but [employer] does not document any current prescriptions -Patient became threatening when confronted with this fact and is demanding dilaudid - he has asked for a new attending provider -Patient has been pre-medicated for CTA in ED and will have study tonight -Resume Plavix if CTA negative -Monitor on telemetry -Serial troponins to rule out DC -If above negative, anticipate dc tomorrow with cardiology followup for consideration of provocative testing Code(s): R07.9 - CHEST PAIN, UNSPECIFIED (2) Marfan's syndrome Assessment/Plan: -Unconfirmed Code(s): Q87.40 - MARFAN'S SYNDROME, UNSPECIFIED (3) DVT prophylaxis Assessment/Plan: -No SCDs (history of DVTs) -Early ambulation -Holding chemical ppx pending CTA report Code(s): XCE9071 - Visit type - Emergency Visit Emergency Visit: Yes ED Registration Date: 02/24/17 Care time: The patient presented to the Emergency Department on the above date and was hospitalized for further evaluation of their emergent condition. - New Patient This patient is new to me today: Yes Date on this admission: 02/24/17 - Critical Care Critical Care patient: No
[2017-02-24 12:21] LABS: PLATELET ESTIMATE ADEQUATE (NORMAL)
[2017-02-24 14:43] LABS: TROPONIN I < 0.02 ng/ml (0.00-0.05)
[2017-02-24] MEDS ORDERED: morphine CARPU-JECT 2 MG/1 ML DISP.SYRIN IVPUSH ONE (18:31)
[2017-02-24 21:50] LABS: TROPONIN I < 0.02 ng/ml (0.00-0.05)
[2017-02-24] MEDS ORDERED: diphenhydrAMINE HCL 50 MG CAPSULE PO ONE (22:00)
[2017-02-24] MEDS ORDERED: ATORVASTATIN CA 40 MG TABLET (FP) PO SCH (22:00)
[2017-02-25] MEDS ORDERED: morphine CARPU-JECT 2 MG/1 ML DISP.SYRIN IVPUSH ONE (01:01)
[2017-02-25] MEDS ORDERED: predniSONE 20 MG TABLET (UD) PO ONE (01:15)
[2017-02-25] MEDS ORDERED: diphenhydrAMINE HCL 25 MG CAPSULE (FP) PO ONE (01:15)
[2017-02-25 02:58] VITALS: PULSE 49
--- NOTE | 2017-02-25 03:13 | HOSP ---
Physical Examination Vital Signs: Vital Signs Temperature 98.2 F 02/24/17 22:47 Pulse Rate 69 02/24/17 22:47 Respiratory Rate 20 02/24/17 22:47 Blood Pressure 142/80 02/24/17 22:47 O2 Sat by Pulse Oximetry (%) 95 02/24/17 22:47 Hospitalist Encounter Assessment: 1am: Called by nurse who reported pt with no IV for CTA. Pt attended, #20g angiocath placed left proximal inner lower arm. 1st attempt. Flushed freely. Pt tolerated procedure well.
--- NOTE | 2017-02-25 08:07 | CONSULT ---
Consult - text type - Consultation Consultation Note: Cardiology 36 yr old male HTN, lipids chest pains 2 days, no other sympotms social NA FH heart allergy meds OP endo repair of AA PMH above; ? PCI with stents, CHF; Marfan's vitals stable normal cardio-pulmonary exam abdomen soft no leg edema Impression: atypical chest pain, no ME or cardiac decompensation or CHF; telemetry unremarkable trop negative, EKG normal ? h/o dissection CTA negative CAD, stable AA CTA results need to be follow-ed up Rec: can be discharged with close outpatient cardiac follow-up he seems disinterested though
--- NOTE | 2017-02-25 08:32 | EKG ---
Test Reason : Blood Pressure : / mmHG Vent. Rate : 075 BPM Atrial Rate : 075 BPM P-R Int : 152 ms QRS Dur : 084 ms QT Int : 398 ms P-R-T Axes : 061 081 024 degrees QTc Int : 444 ms NORMAL SINUS RHYTHM NORMAL ECG WHEN COMPARED WITH ECG OF 24-FEB-2017 00:53, NO SIGNIFICANT CHANGE WAS FOUND Confirmed by JESSICA SAENZ MD ([id number]) on 02/25/2017 8:32:12 AM Referred By: Confirmed By:JESSICA SAENZ MD
[2017-02-25] MEDS ORDERED: FUROSEMIDE 40 MG TABLET (FP) PO SCH (10:00)
[2017-02-25] MEDS ORDERED: LORATADINE 10 MG TABLET PO SCH (10:00)
--- NOTE | 2017-02-25 12:09 | DS ---
Physical Exam: SUBJECTIVE: Patient seen and examined. He has no acute chest pain, ambulating the halls and conversing w/o issue. Has some posterior knee/neck/back pain. Events: - CTA negative for dissection - Pt requests topical muscle relaxant without ASA. We do not have any agents except Bengay, pt was informed it has ASA. Pt says when he swallows ASA his throat closes but when applied to skin there is some local irritation/rash. He is requesting the bengay and says he will take it with Benadryl cream, he will not use anything else. OBJECTIVE: Vital Signs Period Temp Pulse Resp BP Sys/[place] Pulse Ox Last 24 Hr 97.5 F-98.6 F 49-69 18-20 132-147/75-89 95-98 PE Neuro: alert, awake, cn 2-12intact Pulm: CTAB CV: s1 s2 rrr no mrg Abd: s nd nd +bs Ext: no le edema, well perfused MSK: joint tenderness Laboratory Results - last 24 hr 02/24/17 02/24/17 02/24/17 13:40 13:40 21:00 Creatine Kinase 245 261 Creatine Kinase Index 2.8 CK-MB (CK-2) 1.2 CK-MB (CK-2) Rel Index Cancelled Troponin I < 0.02 < 0.02 02/24/17 21:00 Creatine Kinase Creatine Kinase Index CK-MB (CK-2) CK-MB (CK-2) Rel Index Cancelled Troponin I HOSPITAL COURSE: Date of Admission:02/24/17 Date of Discharge: 02/25/17 Minutes to complete discharge: 37 Discharge Summary Reason For Visit: CHEST PAIN Current Active Problems Chest pain in adult (Acute) DVT prophylaxis (Acute) CAD (coronary artery disease) (Chronic) Hospital Course: Initial Hospital Course: Briefly, this 36 year old male with a history of HTN, HLD, CAD s/p stents x 3, DVTs in 2006 and 2010 (no longer on AC), and reported history of Marfan's Syndrome and multiple abdominal aortic dissections s/p latest repair at [facility] (02/09) presented to the ED for evaluation of chest pain. He reported the pain is "ripping and tearing" in character, radiates to the back, and is intermittent. He stated it first began while he was at rest. It has not been relieved with oral dilaudid which he states was prescribed to him following a knee surgery. Subsequent Hospital Course/Progress Note/Discharge Summary: - Per pt. has history of Marfan's and aortic dissections; however multiple imaging studies here show no evidence of this (ROSALIA 01/06/17, aorta and renal u/s 01/05/17, chest CT 01/05/17, CT abd/pelvis 12/03/16, chest/thorax CTA 07/15/16) - Refused transfer to [facility], have no received medical records from [facility] - Patient cannot recall name of PCP and internet search for "Dr. Zoya Enciso" unrevealing - Serial trops negative - Pre medicated for CTA - CTA negative for dissection or dilation - Pt refused repeat labs on day of discharge - Resume home meds as directed on home medication list with cardiology follow up Condition: Stable - Instructions Diet, Activity, Other Instructions: Please return to the ED for any new, persistent, or worsening symptoms. Follow up with your PCP in 1 week Take medications as directed on home medication list Disposition: HOME - Home Medications Comprehensive Discharge Medication List: Ambulatory Orders Atorvastatin Ca [Lipitor] 40 mg PO HS 05/08/15 Clopidogrel Bisulfate [Plavix -] 75 mg PO HS 05/08/15 Furosemide [Lasix -] 40 mg PO DAILY 05/08/15 Hydrochlorothiazide [Hctz -] 12.5 mg PO DAILY 12/09/15 Loratadine [Claritin -] 10 mg PO DAILY #30 tablet 02/01/17 This patient is new to me today: Yes Date on this admission: 02/25/17 Emergency Visit: Yes ED Registration Date: 02/24/17 Care time: The patient presented to the Emergency Department on the above date and was hospitalized for further evaluation of their emergent condition. Critical Care patient: No - Discharge Referral Referred to [facility] Med [facility] No
[2017-02-25] MEDS ORDERED: METHYL SALICYLATE/MENTHOL OINT 30 GM TUBE TP SCH ×2 (12:15→12:23)
[2017-02-25 15:04] VITALS: BP 127/85; TEMP 98
--- NOTE | 2017-02-28 09:25 | EKG ---
Test Reason : Blood Pressure : / mmHG Vent. Rate : 068 BPM Atrial Rate : 068 BPM P-R Int : 156 ms QRS Dur : 086 ms QT Int : 406 ms P-R-T Axes : 066 070 029 degrees QTc Int : 431 ms NORMAL SINUS RHYTHM WHEN COMPARED WITH ECG OF 06-JAN-2017 09:00, VENT. RATE HAS INCREASED BY 23 BPM QT HAS LENGTHENED Confirmed by MD JULIANN, RICARDO ([id number]) on 02/28/2017 9:25:18 AM Referred By: ELLA VALENTE Confirmed By:RICARDO HUMPHREYS MD
== END 2017-02-25 15:22 | disposition home or self-care (01) ==
LOC: JER 07:26 → JERBED 10:45 → J4W 20:00
PROVIDERS: ADMIT Internal Medicine; ATTEND Nurse Practitioner Acute Care
PROC: 3E033NZ Introduction of Analgesics, Hypnotics, Sedatives into Peripheral Vein, Percutaneous Approach (ICD-10-PCS; principal; 2017-02-24)
DX: R07.89 Other chest pain (principal); I10 Essential (primary) hypertension; I50.9 Heart failure, unspecified; I25.2 Old myocardial infarction; I25.10 Atherosclerotic heart disease of native coronary artery without angina pectoris; E78.5 Hyperlipidemia, unspecified; Q87.40 Marfan syndrome, unspecified; F41.9 Anxiety disorder, unspecified; Z95.5 Presence of coronary angioplasty implant and graft; Z88.6 Allergy status to analgesic agent; Z91.013 Allergy to seafood; Z91.041 Radiographic dye allergy status; Z88.8 Allergy status to other drugs, medicaments and biological substances; Z86.718 Personal history of other venous thrombosis and embolism
CPT/HCPCS: 36415; 71020-TC; 71275-TC; 80053; 82550; 82553; 84484; 85025; 85610; 93005; 93010; 93306-TC; 99285-25; G0378

== ENCOUNTER 2017-04-24 19:11 | Observation (INO) | payer OTHER ==
[2017-04-24 19:21] VITALS: BMI 30.3
[2017-04-24] MEDS ORDERED: SODIUM CHLORIDE 1,000 ML IV STA (19:34)
[2017-04-24] MEDS ORDERED: ONDANSETRON 4 MG/2 ML VIAL IVPUSH ONE ×2 (19:36→22:50)
[2017-04-24 19:45] LABS: BASOPHIL 0.9 % (0-2.0); EOSINOPHIL 1.3 % (0-4.5); MCH 28.8 pg (25.7-33.7); MCHC 33.2 g/dl (32.0-35.9); MEAN CELL VOLUME 86.7 fl (80-96); MEAN PLT VOLUME 7.2 fl (7.5-11.1); NEUTROPHILS 67.3 % (42.8-82.8); PLATELET COUNT 231 K/MM3 (134-434); WHITE BLOOD COUNT 6.2 K/mm3 (4.0-10.0)
[2017-04-24] MEDS ORDERED: PANTOPRAZOLE SODIUM 100 ML IVPB ONE (19:47)
[2017-04-24] MEDS ORDERED: morphine CARPU-JECT 4 MG/1 ML DISP.SYRIN IVPUSH ONE (19:50)
[2017-04-24] MEDS ORDERED: PANTOPRAZOLE SODIUM 40 MG in SODIUM CHLORIDE 100 ML IVPB ONE (19:51)
[2017-04-24] MEDS ORDERED: morphine CARPU-JECT 4 MG/1 ML DISP.SYRIN ONE (19:54)
[2017-04-24 20:05] LABS: INR 1.03 (0.82-1.09); PROTHROMBIN TIME (PATIENT) 11.3 SEC (9.98-11.88)
--- NOTE | 2017-04-24 20:17 | PDOC ---
Attending Attestation - Resident Resident Name: Socorro Brown - ED Attending Attestation I have performed the following: I have examined & evaluated the patient, The case was reviewed & discussed with the resident, I agree w/resident's findings & plan, Exceptions are as noted - HPI HPI: 04/24/17 20:14 36y M hx of CAD sp stents, ?marfans, ?ao dissection Type B s/p repair, presents with 'ripping/tearing' back pain after being struck in the back during semipro foot ball, pt has been having vmiting abdifatah blood and having dark stool since monday. Pt endorses some tingling in his leg. pt has assymetric bps on his arms repeat bps have been symmetricly normal. his exam is essentialy unremarakble pulese are symmetric abd soft nontender chest exam wnl pt was here inthe past and was evaluated for back pain r/o dissection - CTA shows no signs of dissection nor repair. but elevated suspicion due to objective physical findings pt notes contrast allergy, but will pretreat the pt 04/24/17 22:14 labs unremarkble no signs of widening on cxr vitals normal pt in no distress on reexam. Dr. Brown had discussed with sandro pérez and although it was claimed he had repair of his dissectio nthere, there was no such thing there beside many diagnostic tets including TTE/ROSALIA, CTs. There also seemed to kyle concern for drug seeking behavior. although due to history, cardiology consultation recommended cta with pretreatment until absolutely certain that he has never had a dissection or marfans. will obseve for pretreatment and CTA - Physicial Exam PE: 04/25/17 05:35 see above - Medical Decision Making 04/25/17 05:35 see above Heart Score/ECG Review - ECG Impressions Comment:: 04/24/17 23:35 Twelve-lead EKG was performed and reviewed by me. There is normal sinus rhythm with a normal rate. rate of 67 The axis is normal. The intervals are normal. There is normal R wave progression There are no ST or T wave abnormalities. Impression: Normal twelve-lead EKG
--- NOTE | 2017-04-24 20:28 | PDOC ---
History of Present Illness - General Chief Complaint: Vomiting Blood Stated Complaint: VOMITING BLOOD Time Seen by Provider: 04/24/17 19:23 History Source: Patient Exam Limitations: No Limitations - History of Present Illness Initial Comments: This is a 36 yom with h/o Marfan syndrome, type B aortic dissection surgically repaired in 2009, and CT contrast allergy who p/w vomiting bright red blood for the past two days. He was playing football when he was hit in the center of the mid-back and had an immediate onset of pain, and within three minutes of this he began vomiting with bright red blood and clots in the first episode of vomiting. He has continued vomiting since that time. He notes tearing/ripping back pain in the center of his back, as well as unchanged chronic tingling in his right leg. He has not been otherwise ill lately. Past History - Past Medical History Allergies/Adverse Reactions: Allergies Allergy/AdvReac Type Severity Reaction Status Date / Time Fish Containing Products Allergy Intermediate Hives Verified 04/24/17 19:18 acetaminophen [From Tylenol] Allergy Verified 04/24/17 19:18 aspirin Allergy Verified 04/24/17 19:18 ibuprofen [From Motrin] Allergy Verified 04/24/17 19:18 iodine Allergy Verified 04/24/17 19:18 nitroglycerin Allergy Verified 04/24/17 19:18 NSAIDS (Non-Steroidal Allergy Verified 04/24/17 19:18 Anti-Inflamma pseudoephedrine Allergy Verified 04/24/17 19:18 CONTRAST Allergy Uncoded 02/24/17 07:29 Home Medications: Ambulatory Orders Atorvastatin Ca [Lipitor] 40 mg PO HS 05/08/15 Hydrochlorothiazide [Hctz -] 12.5 mg PO DAILY 12/09/15 Loratadine [Claritin -] 10 mg PO DAILY #30 tablet 02/01/17 Cardiac Disorders: Yes (CHF, 7 STENTS, 7MI, murmur,bradycardia) HTN: Yes Hypercholesterolemia: Yes Psychiatric Problems: Yes (anxiety) - Surgical History Abdominal Surgery: Yes (AORTIC DISECTION repair) Cardiac Surgery: Yes (7 STENTS) - Family Disease History Family Disease History: Diabetes: Brother, Heart Disease: Father (marfans syndrome), Brother - Immunization History Immunization Up to Date: Yes - Psycho/Social/Smoking Cessation Hx Anxiety: No Suicidal Ideation: Yes Smoking History: Never smoked Have you smoked in the past 12 months: No Number of Cigarettes Smoked Daily: 0 Information on smoking cessation initiated: No 'Breaking Loose' booklet given: 06/17/15 Hx Alcohol Use: No Drug/Substance Use Hx: No Substance Use Type: None Hx Substance Use Treatment: No Review of Systems - Review of Systems Constitutional: No: Chills, Fever, Unexplained wgt Loss HEENTM: No: Nose Congestion, Throat Pain Respiratory: No: Cough, Shortness of Breath Cardiac (ROS): No: Chest Pain, Palpitations ABD/GI: Yes: Nausea, Vomiting (blood), Other. No: Constipated, Diarrhea : No: Burning, Dysuria Musculoskeletal: Yes: Back Pain (center mid-back). No: Neck Pain Integumentary: No: Bruising, Rash Neurological: No: Headache, Numbness, Tingling, Weakness, Dizziness Endocrine: No: Unexplained Weight Gain, Unexplained Weight Loss *Physical Exam - Vital Signs Last Vital Signs Temp Pulse Resp BP Pulse Ox 97.5 F L 71 18 136/83 98 04/24/17 19:18 04/24/17 19:51 04/24/17 19:51 04/24/17 19:51 04/24/17 19:51 - Physical Exam General Appearance: Yes: Nourished, Appropriately Dressed, Other (fit and well- appearing male but is vomiting bright red blood, answering questions appropriately). No: Apparent Distress HEENT: positive: EOMI, Normal Voice, Hearing Grossly Normal. negative: Scleral Icterus (R), Scleral Icterus (L), Nasal Congestion Neck: positive: Trachea midline, Supple, Other (carotid pulses strong and symmetric). negative: Tender, Rigid Respiratory/Chest: positive: Lungs Clear, Normal Breath Sounds. negative: Chest Tender, Respiratory Distress, Crackles, Rhonchi, Stridor, Wheezing Cardiovascular: positive: Regular Rhythm, Regular Rate. negative: Murmur Gastrointestinal/Abdominal: positive: Normal Bowel Sounds, Soft. negative: Tender, Organomegaly, Pulsatile Mass, Guarding Musculoskeletal: positive: Normal Inspection, Other (Points to about the T6 ). negative: Decreased Range of Motion, Vertebral Tenderness Extremity: positive: Normal Capillary Refill, Normal Inspection, Normal Range of Motion. negative: Tender, Cyanosis Integumentary: positive: Normal Color, Dry, Warm. negative: Erythema, Rash, Bruising Neurologic: positive: fly fishing guide II-XII NML intact, Fully Oriented, Alert, Normal Mood/ Affect, Normal Response, Motor Strength 12/16 ED Treatment Course - LABORATORY CBC & Chemistry Diagram: 04/24/17 19:35 04/24/17 19:35 - ADDITIONAL ORDERS Additional order review: Laboratory Results 04/24/17 19:35 INR 1.03 04/24/17 19:35 RBC 4.48 MCV 86.7 MCHC 33.2 RDW 16.0 H MPV 7.2 L Neutrophils % 67.3 D Lymphocytes % 23.3 D Monocytes % 7.2 Eosinophils % 1.3 D Basophils % 0.9 - RADIOLOGY Radiology Studies Ordered: Category Date Time Status CHEST PA & LAT [RAD] Stat Radiology 04/24/17 19:49 Ordered - Medications Given in the ED: ED Medications Discontinued Medications Generic Name Dose Route Start Last Admin Trade Name Freq PRN Reason Stop Dose Admin Pantoprazole Sodium 40 mg/ 100 mls @ 200 mls/hr 04/24/17 19:51 04/24/17 19:52 Sodium Chloride IVPB 04/24/17 20:20 200 mls/hr ONCE ONE Administration Morphine Sulfate 4 mg 04/24/17 19:50 04/24/17 19:56 Morphine Injection - IVPUSH 04/24/17 19:51 4 mg ONCE ONE Administration Ondansetron HCl 8 mg 04/24/17 19:36 04/24/17 19:40 Zofran Injection IVPUSH 04/24/17 19:37 8 mg ONCE ONE Administration Medical Decision Making - Medical Decision Making 36 yom with reported h/o Marfan syndrome, aortic dissection with repair in 2009 , p/w back pain and vomiting blood. Just before the onset of both he was struck in the back while playing football. States "ripping, tearing pain" in the mid-back, vomiting bright red emesis on arrival, unclear if this is blood. Emesis tested using guaiac card, no blood detected, fluid in emesis bag dries bright bright red/pink. Pt later states was drinking a V-6 fusion prior to coming to ED. Pt states allergy to CT contrast. Ordered is cardiac profile, CXR, CBCD, CMP, type&screen, coags. 04/24/17 22:20 Laboratories result as normal. Spoke with Dr. Bateman (medical receptionist for Dr. Ellington who Pt states is his manager valuation). Dr. Bateman notes that any aortic dissection repair would show up on one of his prior CTs. Recommends obs admission, pre-medication for CTA, and performing CTA after the appropriate pre-treatment. 04/24/17 22:[address] [facility] who state he was seen in their ED on and they will call back with more details. Will begin pre-treatment (it appears Pt got Benadryl, dexamethasone, and prednisone before CTA in February 2017). Will admit to Obs with plan for CTA in the next 1-2 days. 04/24/17 23:01 [facility] ED calls back and states admitted for CP radiating to back in November to cardiac floor. Discharge summary from that admission states CP improved but Pt requested much Dilaudid. Essentially a normal cardiac workup, echo showed normal aortic root, normal TTE. Pt was noted to increasingly request Dilaudid, they had to begin weaning him off of it. At that time he became increasingly combative, verbally abusive, threatened to throw food. He then refused MRI and further workup and was discharged home. ROSALIA in 2016 was normal at [facility]. 04/25/17 00:16 Pt admitted to [facility] after pre-treatment with 50 mg prednisone and 50 mg benadryl given PO. *DC/Admit/Observation/Transfer Diagnosis at time of Disposition: Marfan's syndrome, Hematemesis with nausea Back pain Qualifiers: Back pain location: thoracic back pain Chronicity: acute Back pain laterality: midline Qualified Code(s): M54.6 - Pain in thoracic spine - Discharge Dispostion Condition at time of disposition: Guarded Admit: Yes
[2017-04-24 20:53] LABS: PROTHROMBIN TIME (PATIENT) 11.3 SEC (9.98-11.88)
[2017-04-24 20:54] LABS: INR 1.03 (0.82-1.09)
[2017-04-24 21:07] LABS: ALBUMIN 4.2 g/dl (3.4-5.0); ANION GAP 9 (8-16); CALCIUM 9.5 mg/dL (8.5-10.1); CO2 29 mmol/L (21-32); GLUCOSE,RANDOM 91 mg/dL (74-106); SGOT/AST 12 U/L (15-37); SGPT/ALT 19 U/L (12-78)
[2017-04-24 21:09] LABS: ALK PHOS 74 U/L (45-117); BILIRUBIN,TOTAL 0.5 mg/dL (0.2-1.0)
[2017-04-24] MEDS ORDERED: ONDANSETRON 4 MG/2 ML VIAL ONE (22:54)
[2017-04-24] MEDS ORDERED: diphenhydrAMINE HCL 50 MG CAPSULE PO ONE (23:27)
[2017-04-24] MEDS ORDERED: predniSONE 20 MG TABLET (UD) PO ONE (23:35)
[2017-04-24] MEDS ORDERED: predniSONE 20 MG TABLET (UD) ONE (23:39)
[2017-04-24] MEDS ORDERED: diphenhydrAMINE HCL 25 MG CAPSULE (FP) PO ONE (23:39)
--- NOTE | 2017-04-25 00:02 | PN ---
Teaching Attending Note Name of Resident: Jeet Grullon ATTENDING PHYSICIAN STATEMENT I saw and evaluated the patient. I reviewed the resident's note and discussed the case with the resident. I agree with the resident's findings and plan as documented. SUBJECTIVE: 36 yo M with hx. of Marfans (unconfirmed) ?Aortic dissection ?repair (multiple CTA's/ROSALIA (done 12/28) with no evidence of dissection), Last CTA 02/27 which showed no evidence of dissection ? CAD w stents, HTN, HLD, CAD, DVT/pE in the past who presents with tearing chest pain from being "hit with football". States he has contrast allergy, has been pre-medicated in the past. Pt. states that he has had also hemetemsis, (occult was done in ED and was negative). States that he "knows his chest pain is NOT cardiac" and that he "wants to eat" . States that he is not throwing up blood, and notes he was drinking a V6 fusion before coming to ED. Currently denies any chest pain, states he does have "tearing back pain," that is only controlled with Dilaudid. Of note pt. also states his girlfriend can be very aggressive if he does not get his pain controlled. ED: ED spoke with states that CTAs prior have NOT shown any aortic dissection repair, and recc. Pre-med for CTA. [facility] was called by ED who notes he was in their ED 12/03/16, pt. was admitted for chest pain there. He had a echo with normal Aortic root, normal TTE , and normal cardiac oconnor. He requested increased doses of Dilaudid there and he became increasingly combative and verbally abusive as they were weaning him off Dilaudid. ROSALIA in 06/29 was normal at [facility]. He refused MRI there. OBJECTIVE: Physical: VS: Vital Signs Period Temp Pulse Resp BP Sys/[place] Pulse Ox Last 24 Hr 97.5 F 66-71 17-20 112-136/66-84 98-98 GEN: NAD, Resting in bed, Appears comfortable, able to speak full sentences HEENT: NCAT, PERRL, Throat without erythema or exudates CARD: RRR S1, S2 RESP: CTAB ABD: BSX4, NTD to palpation EXT:- C/C/E, EQUAL pulses of bilateral UE CBCD WBC 6.2 K/mm3 (4.0-10.0) D 04/24/17 19:35 RBC 4.48 M/mm3 (4.00-5.60) 04/24/17 19:35 Hgb 12.9 GM/dL (11.7-16.9) 04/24/17 19:35 Hct 38.8 % (35.4-49) 04/24/17 19:35 MCV 86.7 fl (80-96) 04/24/17 19:35 MCHC 33.2 g/dl (32.0-35.9) 04/24/17 19:35 RDW 16.0 % (11.9-15.9) H 04/24/17 19:35 Plt Count 231 K/MM3 (134-434) 04/24/17 19:35 MPV 7.2 fl (7.5-11.1) L 04/24/17 19:35 CMP Sodium 141 mmol/L (136-145) 04/24/17 19:35 Potassium 4.4 mmol/L (3.5-5.1) 04/24/17 19:35 Chloride 103 mmol/L (98-107) 04/24/17 19:35 Carbon Dioxide 29 mmol/L (21-32) 04/24/17 19:35 Anion Gap 9 (8-16) 04/24/17 19:35 BUN 16 mg/dL (7-18) 04/24/17 19:35 Creatinine 1.0 mg/dL (0.7-1.3) D 04/24/17 19:35 Creat Clearance w eGFR > 60 (>60) 04/24/17 19:35 Random Glucose 91 mg/dL (74-106) 04/24/17 19:35 Calcium 9.5 mg/dL (8.5-10.1) 04/24/17 19:35 Total Bilirubin 0.5 mg/dL (0.2-1.0) D 04/24/17 19:35 AST 12 U/L (15-37) L D 04/24/17 19:35 ALT 19 U/L (12-78) 04/24/17 19:35 Alkaline Phosphatase 74 U/L (45-117) D 04/24/17 19:35 Total Protein 7.0 g/dl (6.4-8.2) D 04/24/17 19:35 Albumin 4.2 g/dl (3.4-5.0) D 04/24/17 19:35 EKG: NSR 67 QtC 409, no acute St-T changes CXR: No acute process- My read (awaiting final read) ASSESSMENT AND PLAN: 36 yo M with pmhx of Marfans, ?Aortic dissection, HTN, HLD, CAD?w Stents, DVT, who presents with tearing back pain. 1.) Tearing back Pain- RO dissection - As per Cardio, multiple prior CTA's with no dissection, and prior TEEs with no evidence of dissection - Pre- Treat for CTA, Prednisone and benedryl, CTA post pre-treatment - Cardio consult - Trend Trops - Avoid A/C for possibility of dissection - NEED confirmation of home meds of Dilaudid in AM 2.) CAD? - C/W home meds - Cardio on consult - Monitor on tele 3.) ?Marfans - Unconfirmed 4.) HTN - C/W Home meds 5.) DVT - States on Coumadin 5, but takes it sporadically - Avoid A/C at this time due to possible dissection Place in Tele-Obs
--- NOTE | 2017-04-25 00:20 | PDOC ---
*Physical Exam - Vital Signs Last Vital Signs Temp Pulse Resp BP Pulse Ox 97.5 F L 71 17 112/67 98 04/24/17 19:18 04/24/17 19:51 04/24/17 21:02 04/24/17 21:02 04/24/17 21:02 <Socorro Brown - Last Filed: 04/25/17 00:22> - Vital Signs Last Vital Signs Temp Pulse Resp BP Pulse Ox 97.9 F 55 L 16 122/76 98 04/25/17 02:50 04/25/17 02:50 04/25/17 02:50 04/25/17 02:50 04/25/17 01:03 <Rene Joyner - Last Filed: 04/25/17 05:41> ED Treatment Course - LABORATORY CBC & Chemistry Diagram: 04/24/17 19:35 04/24/17 19:35 - ADDITIONAL ORDERS Additional order review: Laboratory Results 04/24/17 04/24/17 04/24/17 20:28 19:35 19:35 INR 1.03 1.03 Sodium Potassium Chloride Carbon Dioxide Anion Gap BUN Creatinine Creat Clearance w eGFR Random Glucose Calcium Total Bilirubin AST ALT Alkaline Phosphatase Total Protein Albumin Blood Type A NEGATIVE Antibody Screen Negative 04/24/17 19:35 INR Sodium 141 Potassium 4.4 Chloride 103 Carbon Dioxide 29 Anion Gap 9 BUN 16 Creatinine 1.0 D Creat Clearance w eGFR > 60 Random Glucose 91 Calcium 9.5 Total Bilirubin 0.5 D AST 12 L D ALT 19 Alkaline Phosphatase 74 D Total Protein 7.0 D Albumin 4.2 D Blood Type Antibody Screen 04/24/17 19:35 RBC 4.48 MCV 86.7 MCHC 33.2 RDW 16.0 H MPV 7.2 L Neutrophils % 67.3 D Lymphocytes % 23.3 D Monocytes % 7.2 Eosinophils % 1.3 D Basophils % 0.9 - RADIOLOGY Radiology Studies Ordered: Category Date Time Status CHEST PA & LAT [RAD] Stat Radiology 04/24/17 19:49 Taken - Medications Given in the ED: ED Medications Discontinued Medications Generic Name Dose Route Start Last Admin Trade Name Freq PRN Reason Stop Dose Admin Diphenhydramine HCl 50 mg 04/24/17 23:27 04/24/17 23:41 Benadryl - PO 04/24/17 23:28 50 mg ONCE ONE Administration Sodium Chloride 1,000 mls @ 1,000 mls/hr 04/24/17 19:34 04/24/17 19:41 Normal Saline - IV 04/24/17 20:33 1,000 mls/hr ASDIR STA Administration Pantoprazole Sodium 40 mg/ 100 mls @ 200 mls/hr 04/24/17 19:51 04/24/17 19:52 Sodium Chloride IVPB 04/24/17 20:20 200 mls/hr ONCE ONE Administration Morphine Sulfate 4 mg 04/24/17 19:50 04/24/17 19:56 Morphine Injection - IVPUSH 04/24/17 19:51 4 mg ONCE ONE Administration Ondansetron HCl 8 mg 04/24/17 19:36 04/24/17 19:40 Zofran Injection IVPUSH 04/24/17 19:37 8 mg ONCE ONE Administration Ondansetron HCl 4 mg 04/24/17 22:50 04/24/17 22:56 Zofran Injection IVPUSH 04/24/17 22:51 4 mg ONCE ONE Administration Prednisone 60 mg 04/24/17 23:35 04/24/17 23:41 Deltasone - PO 04/24/17 23:36 60 mg ONCE ONE Administration <Socorro Brown - Last Filed: 04/25/17 00:22> - LABORATORY CBC & Chemistry Diagram: 04/24/17 19:35 04/24/17 19:35 - ADDITIONAL ORDERS Additional order review: Laboratory Results 04/24/17 04/24/17 04/24/17 20:28 19:35 19:35 INR 1.03 1.03 Sodium Potassium Chloride Carbon Dioxide Anion Gap BUN Creatinine Creat Clearance w eGFR Random Glucose Calcium Total Bilirubin AST ALT Alkaline Phosphatase Total Protein Albumin Blood Type A NEGATIVE Antibody Screen Negative 04/24/17 19:35 INR Sodium 141 Potassium 4.4 Chloride 103 Carbon Dioxide 29 Anion Gap 9 BUN 16 Creatinine 1.0 D Creat Clearance w eGFR > 60 Random Glucose 91 Calcium 9.5 Total Bilirubin 0.5 D AST 12 L D ALT 19 Alkaline Phosphatase 74 D Total Protein 7.0 D Albumin 4.2 D Blood Type Antibody Screen 04/24/17 19:35 RBC 4.48 MCV 86.7 MCHC 33.2 RDW 16.0 H MPV 7.2 L Neutrophils % 67.3 D Lymphocytes % 23.3 D Monocytes % 7.2 Eosinophils % 1.3 D Basophils % 0.9 - Medications Given in the ED: ED Medications Discontinued Medications Generic Name Dose Route Start Last Admin Trade Name Adam PRBrandt Reason Stop Dose Admin Diphenhydramine HCl 50 mg 04/24/17 23:27 04/24/17 23:41 Benadryl - PO 04/24/17 23:28 50 mg ONCE ONE Administration Sodium Chloride 1,000 mls @ 1,000 mls/hr 04/24/17 19:34 04/24/17 19:41 Normal Saline - IV 04/24/17 20:33 1,000 mls/hr ASDIR STA Administration Pantoprazole Sodium 40 mg/ 100 mls @ 200 mls/hr 04/24/17 19:51 04/24/17 19:52 Sodium Chloride IVPB 04/24/17 20:20 200 mls/hr ONCE ONE Administration Morphine Sulfate 4 mg 04/24/17 19:50 04/24/17 19:56 Morphine Injection - IVPUSH 04/24/17 19:51 4 mg ONCE ONE Administration Ondansetron HCl 8 mg 04/24/17 19:36 04/24/17 19:40 Zofran Injection IVPUSH 04/24/17 19:37 8 mg ONCE ONE Administration Ondansetron HCl 4 mg 04/24/17 22:50 04/24/17 22:56 Zofran Injection IVPUSH 04/24/17 22:51 4 mg ONCE ONE Administration Prednisone 60 mg 04/24/17 23:35 04/24/17 23:41 Deltasone - PO 04/24/17 23:36 60 mg ONCE ONE Administration <Rene Joyner - Last Filed: 04/25/17 05:41> *DC/Admit/Observation/Transfer - Discharge Dispostion Admit: Yes <BrownSocorro - Last Filed: 04/25/17 00:22> <Rene Joyner - Last Filed: 04/25/17 05:41> Diagnosis at time of Disposition: Hematemesis with nausea Back pain Qualifiers: Back pain location: thoracic back pain Chronicity: acute Back pain laterality: midline Qualified Code(s): M54.6 - Pain in thoracic spine - Discharge Dispostion Condition at time of disposition: Guarded
--- NOTE | 2017-04-25 00:54 | HP ---
CHIEF COMPLAINT: Vomiting + Back Pain PCP: Dr. Sandeep Cotton HISTORY OF PRESENT ILLNESS: Pt is a 36yo M with a stated diagnosis of Marfans (unconfirmed) who presented with "ripping, tearing back pain radiating to jaw" after being hit by another player while playing football. He subsequently had episode of red-colored emesis (Guiac negative when tested in ER). Pt has been seen in multiple hospitals multiple times for similar complaints and has had extensive imaging ( CTA, TTE, ROSALIA) which have all been negative for dissection to date. He endorses mild dizziness and some tingling sensation in RLE in a non-dermatomal distribution (between mid-thigh and mid-calf). Otherwise no CP, no SOB, no abdominal pain. Pt was recently seen in [facility], admitted for CP with normal echo and cardiac workup. Patient at that time requested increasing doses of Dilaudid and became verbally and physically combative when they tried to wean him off. He then refused all further medical care there and was discharged home. ER course was notable for: (1) Labs - WNL (2) EKG - NSR, Normal (3) Prednisone 60mg + Benedryl 50mg PO Recent Travel: Denies PAST MEDICAL HISTORY: Marfans (unconfirmed), CAD (unconfirmed), HTN, HLD PAST SURGICAL HISTORY: Pt states he has had prior aortic dissection repair (NOT SEEN IN IMAGING). Pt states he has had multiple cardiac stents (unconfirmed) Social History: Smoking: Denies Alcohol: Denies Drugs: Denies Family History: States Father has Marfan's Syndrome Allergies Fish Containing Products Allergy (Intermediate, Verified 04/24/17 19:18) Hives acetaminophen [From Tylenol] Allergy (Verified 04/24/17 19:18) aspirin Allergy (Verified 04/24/17 19:18) ibuprofen [From Motrin] Allergy (Verified 04/24/17 19:18) iodine Allergy (Verified 04/24/17 19:18) nitroglycerin Allergy (Verified 04/24/17 19:18) NSAIDS (Non-Steroidal Anti-Inflamma Allergy (Verified 04/24/17 19:18) pseudoephedrine Allergy (Verified 04/24/17 19:18) CONTRAST Allergy (Uncoded 02/24/17 07:29) HOME MEDICATIONS: Home Medications Medication Instructions Recorded Atorvastatin Ca [Lipitor] 40 mg PO HS 05/08/15 Hydrochlorothiazide [Hctz -] 12.5 mg PO DAILY 12/09/15 Loratadine [Claritin -] 10 mg PO DAILY #30 tablet 02/01/17 REVIEW OF SYSTEMS CONSTITUTIONAL: Absent: fever, chills, diaphoresis, generalized weakness, malaise, loss of appetite, weight change HEENT: Absent: rhinorrhea, nasal congestion, throat pain, throat swelling, difficulty swallowing, mouth swelling, ear pain, eye pain, visual changes CARDIOVASCULAR: Absent: chest pain, syncope, palpitations, irregular heart rate, lightheadedness , peripheral edema RESPIRATORY: Absent: cough, shortness of breath, dyspnea with exertion, orthopnea, wheezing, stridor, hemoptysis GASTROINTESTINAL: Absent: abdominal pain, abdominal distension, nausea, vomiting, diarrhea, constipation, melena, hematochezia GENITOURINARY: Absent: dysuria, frequency, urgency, hesitancy, hematuria, flank pain, genital pain MUSCULOSKELETAL: Absent: myalgia, arthralgia, joint swelling, back pain, neck pain SKIN: Absent: rash, itching, pallor HEMATOLOGIC/IMMUNOLOGIC: Absent: easy bleeding, easy bruising, lymphadenopathy, frequent infections ENDOCRINE: Absent: unexplained weight gain, unexplained weight loss, heat intolerance, cold intolerance NEUROLOGIC: Absent: headache, dizziness, unsteady gait, seizure, mental status changes, bladder or bowel incontinence Present: focal paresthesia in non-dermatomal distribution PSYCHIATRIC: Absent: anxiety, depression, suicidal or homicidal ideation, hallucinations. PHYSICAL EXAMINATION Vital Signs - 24 hr 04/24/17 04/24/17 04/24/17 19:18 19:51 21:02 Temperature 97.5 F L Pulse Rate 66 Pulse Rate [ 71 Radial] Respiratory 20 18 17 Rate Blood Pressure 121/84 Blood Pressure 136/83 112/67 [Left Arm] Blood Pressure 116/66 [Right Arm] O2 Sat by Pulse 98 98 98 Oximetry (%) BLOOD PRESSURE at time of exam: L arm (122/77); R arm (146/84) GEN: AAOx3, Comfortable, not in pain or distress, appears anxious, talks quickly HEENT: PERRLA, EOMi CV: S1, S2, RRR, No murmurs LUNG: CTABL ABD: Soft, NT, ND, normoactive BS MSK: No edema, no erythema, -Homans, No trauma bhatti on back, no Marfanoid habitus besides height Neuro: CN 2-12 intact, MSK 5/5, No sensation deficits, Reflexes 2+ Brachial, patellar Laboratory Results - last 24 hr 04/24/17 04/24/17 04/24/17 19:35 19:35 19:35 WBC 6.2 D RBC 4.48 Hgb 12.9 Hct 38.8 MCV 86.7 MCH 28.8 MCHC 33.2 RDW 16.0 H Plt Count 231 MPV 7.2 L Neutrophils % 67.3 D Lymphocytes % 23.3 D Monocytes % 7.2 Eosinophils % 1.3 D Basophils % 0.9 INR Sodium 141 Potassium 4.4 Chloride 103 Carbon Dioxide 29 Anion Gap 9 BUN 16 Creatinine 1.0 D Creat Clearance w eGFR > 60 Random Glucose 91 Calcium 9.5 Total Bilirubin 0.5 D AST 12 L D ALT 19 Alkaline Phosphatase 74 D Total Protein 7.0 D Albumin 4.2 D Blood Type A NEGATIVE Antibody Screen Negative 04/24/17 04/24/17 19:35 20:28 WBC RBC Hgb Hct MCV MCH MCHC RDW Plt Count MPV Neutrophils % Lymphocytes % Monocytes % Eosinophils % Basophils % INR 1.03 1.03 Sodium Potassium Chloride Carbon Dioxide Anion Gap BUN Creatinine Creat Clearance w eGFR Random Glucose Calcium Total Bilirubin AST ALT Alkaline Phosphatase Total Protein Albumin Blood Type Antibody Screen ASSESSMENT/PLAN: Pt is a 36yo M with an unconfirmed hx of Marfans who presents with "tearing" back pain after localized trauma, placed in obs for r/o Aortic Dissection. Pt has been to many hospital multiple times for r/o dissection, with multiple imaging tests (CTA, TTE, ROSALIA), all of which have been negative to date. # Back Pain r/o Dissection - Pt has hx of multiple admissions for same issue, all imaging has been negative for dissection - However, asymmetric BP in UE on exam - Pt allergic to iodine, will pretreat w/ protocol - Prednisone PO 50mg 13hr prior, 7hr prior, and 1hr prior to CTA - Benedryl PO 50mg 1hr prior to CTA - CTA to be scheduled at 12:40PM 04/25 - Cardiology consult - ED called Dr. Bateman who recommended the pre- treatment protocol w/ CTA - Trend troponins - FOBT - NO pain meds (hx of opioid abuse in hospitals) # Hx of HTN - Continue HCTZ # Hx of HLD - Continue Lipitor # ?Hx of DVT - Pt states that he takes Coumadin 5mg, unconfirmed, takes periodically - Hold Coumadin for r/o dissection # ?Hx of CAD - Pt states that he takes Plavix, unconfirmed - Hold Plavix for r/o dissection # FEN - Fluids: None needed, Cr function ok - Electrolytes: No abnormalities - Nutrition: NPO due to pt hx of emesis # Prophylaxis - DVT: Avoid anticoagulation for r/o dissection, pt is ambulatory - GI: Not indicated - Deconditoning: PT not needed, pt is ambulatory # Dispo - Admit to tele obs - CTA order placed for 12:40PM - Day team to call Radiology and place pt on for that time slot Case d/w Dr. Hopkins and Dr. Murali Grullon MD - PGY1 Internal Medicine Visit type - Emergency Visit Emergency Visit: Yes ED Registration Date: 04/25/17 Care time: The patient presented to the Emergency Department on the above date and was hospitalized for further evaluation of their emergent condition. - New Patient This patient is new to me today: Yes Date on this admission: 04/25/17 - Critical Care Critical Care patient: No
--- NOTE | 2017-04-25 02:26 | HOSP ---
Subjective - Review of Symptoms Events since last encounter: Paged for patient requesting pain medication and refusing CTA. Patient seen. Entered room with FRANCISCA Aguilar and kindly explained to patient that we are not comfortable giving pain medication at this time. Pt has been complaining of tearing back pain but patient looks comfortable, in NAD. Referred to the records the patient had shown in the ER, a list of all his prescriptions medications from [facility], with Dilaudid highlighted. Kindly stated that we are not comfortable starting this medication. In response, the patient became angry and stated that we were "idiots" for not treating his pain. He stated that we were going against what he was told in the Emergency Department and stated "I am going to sissy every single one of you" and "I don't care what will happen to kids , or families, I just don't care". The patient stated that he will ask his girlfriend to bring his pain medication bottles and will take it in the hospital. The patient then referred to his CTA, ordering that it should be exactly 24 hours after pre-medication with steroids for his iodine allergy. Kindly stated that the medical team had researched the proper protocol, which includes CTA after 13 hours of pre-medication. Patient proceeded to become angry and stated "This is abuse, do you want me to be intubated?". He then stated that he was "firing" the entire medical team and ordered FRANCISCA Aguilar to call the It Senior Analyst. Physical Examination Vital Signs: Vital Signs Temperature 97.7 F 04/25/17 01:03 Pulse Rate 57 L 04/25/17 01:03 Respiratory Rate 16 04/25/17 01:03 Blood Pressure 129/66 04/25/17 01:03 O2 Sat by Pulse Oximetry (%) 98 04/25/17 01:03 Hospitalist Encounter Assessment: FRANCISCA Aguilar placed call to Nursing It Senior Analyst Encounter d/w Dr. Hopkins and Dr. Carrion Visit type - Emergency Visit Emergency Visit: No - New Patient This patient is new to me today: No - Critical Care Critical Care patient: No
[2017-04-25] MEDS ORDERED: predniSONE 10 MG TABLET (UD) PO ONE ×2 (05:40→11:40)
--- NOTE | 2017-04-25 08:05 | HOSP ---
Physical Examination Vital Signs: Vital Signs Temperature 97.9 F 04/25/17 02:50 Pulse Rate 55 L 04/25/17 02:50 Respiratory Rate 16 04/25/17 02:50 Blood Pressure 122/76 04/25/17 02:50 O2 Sat by Pulse Oximetry (%) 98 04/25/17 01:03 Hospitalist Encounter Assessment: Assessment/Plan: Patient is a 36 year old male with a significant past medical history of CAD s/ p stents, ?marfans, ?aortic dissection Type B s/p repair, presents with " ripping and tearing" back pain after being struck in the back playing football. He also reports vomiting abdifatah red blood and dark stool since Monday. Patient seen and examined the bedside with this primary RN who obtained vitals Patient denies chest pain, denies shortness of breath Vitals within normal limits, appears comfortable at rest States he had episode of vomiting up blood yesterday but then states it has resolved Patient allowed limited exam, anterior lung sound clear, denies any vomiting or nausea He continues to refuse the CTA unless he is premedicated 24 hours before the CTA , assured him that we are following an allergy protocol but still refusing However, he has been given Prednisone as per protocol (12 hours prior, 7 hours prior) and has taken the medication The next dose is due 1 hour prior to the CTA, CTA scheduled for 12:30 Allergy protocol: Prednisone PO 50mg 13hr prior, 7hr prior, and 1hr prior to CTA Benedryl PO 50mg 1hr prior to CTA CTA to be scheduled at 12:40PM today Plan: Will trend troponins, has cardiology consulted Monitor for chest pain, discomfort Clear liquid diet Disposition: Observation. full code.
[2017-04-25 09:13] LABS: MAGNESIUM 2.2 mg/dL (1.8-2.4)
[2017-04-25 09:16] LABS: CPK 116 IU/L (39-308); TROPONIN I < 0.02 ng/ml (0.00-0.05)
[2017-04-25] MEDS ORDERED: predniSONE 20 MG TABLET (UD) PO SCH (10:00)
[2017-04-25] MEDS: HYDROCHLOROTHIAZIDE 12.5 MG CAPSULE (FP) PO SCH (10:17)
[2017-04-25] MEDS ORDERED: PT OWN MED DRAWER 7, Y5N ONE (11:18)
--- NOTE | 2017-04-25 11:28 | EKG ---
Test Reason : Blood Pressure : / mmHG Vent. Rate : 067 BPM Atrial Rate : 067 BPM P-R Int : 156 ms QRS Dur : 090 ms QT Int : 388 ms P-R-T Axes : 000 083 039 degrees QTc Int : 409 ms LOW ATRIAL VS ACCELERATED JUNCTION RHYTHM(INVERTED P WAVES IN LEADS II III aVF AND UPRIGHT IN aVL CORRELATE CLINICALLY AND REPEAT INDICATED WHEN COMPARED WITH ECG OF 24-FEB-2017 07:40, CHANGES MENTIONED ABOVE Confirmed by YESENIA FLOREZ MD ([id number] on 04/25/2017 11:28:23 AM Referred By: Confirmed By:YESENIA FLOREZ MD
[2017-04-25] MEDS ORDERED: morphine CARPU-JECT 2 MG/1 ML DISP.SYRIN IVPB ONE (11:30)
[2017-04-25] MEDS ORDERED: predniSONE 20 MG TABLET (UD) PO ONE (11:40)
[2017-04-25] MEDS ORDERED: diphenhydrAMINE HCL 50 MG CAPSULE PO ONE (11:40)
--- NOTE | 2017-04-25 18:33 | CON.CARD ---
Consult Consult Specialty:: Cardiology Referred by:: Hospitalist Reason for Consultation:: Cardiac evaluation - History of Present Illness Chief Complaint: Hemoptysis, chest pain History of Present Illness: Patient is a 36 year old male who states that he has a history of Marfans (he states that his father had Marfans and he was told when he was 9 years old, however; it appears that it is unconfirmed according to medical record), in addition he states history of aortic dissection for which is also unconfirmed as he states various interventions which is also unconfirmed, history of DVT in 2015 for which he states he has been taking Warfarin and also takes Plavix as he is allergic to Aspirin. He complained of "ripping, tearing back pain radiating to jaw" after being hit by another football player as he states that he plays competitive football with full gear. He states red colored emesis, however; guiaic in the ER was presumably tested negative. He has been hospitalized numerous occasion and was seen by all different soup mixer on service. He has had extensive imaging including ROSALIA recently in February which all have been negative for dissection. He has also been to [facility] in the past and he states that procedure for aortic dissection was performed at [facility] in [place], [place]. He mentions about stents, but this is unconfirmed and unclear. He appears to have requested pain medications in the prior hospitalization as he would become verbally and physically combative in the past as he was being weaned off the medication. He denies fever or chills. He denies headache or lightheadedness. He denies syncope. He denies shortness of breath or palpitations. 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- [employer] History of Recent Travel: No Home Medications - Allergies Allergies/Adverse Reactions: Allergies Allergy/AdvReac Type Severity Reaction Status Date / Time Fish Containing Products Allergy Intermediate Hives Verified 04/24/17 19:18 acetaminophen [From Tylenol] Allergy Verified 04/24/17 19:18 aspirin Allergy Verified 04/24/17 19:18 ibuprofen [From Motrin] Allergy Verified 04/24/17 19:18 iodine Allergy Verified 04/24/17 19:18 nitroglycerin Allergy Verified 04/24/17 19:18 NSAIDS (Non-Steroidal Allergy Verified 04/24/17 19:18 Anti-Inflamma pseudoephedrine Allergy Verified 04/24/17 19:18 CONTRAST Allergy Uncoded 02/24/17 07:29 - Home Medications Home Medications: Ambulatory Orders Loratadine [Claritin -] 10 mg PO DAILY #30 tablet 02/01/17 Family Disease History - Family Disease History Family Disease History: Diabetes: Brother (1/2 brother, Aisha), Heart Disease: Father (,AorAortic Dissection- age 46), Mother (Aisha , Mis X 3, first one in her 30s), Brother Review of Systems - Review of Systems Constitutional: denies: Chills, Fever Cardiovascular: reports: Chest Pain. denies: Palpitations, Shortness of Breath Respiratory: denies: Cough, Hemoptysis, Orthopnea, PND, SOB, SOB on Exertion Gastrointestinal: denies: Abdominal Pain, Constipation, Diarrhea, Melena, Nausea , Rectal Bleeding, Vomiting Musculoskeletal: reports: Back Pain, Joint Pain Neurological: denies: Dizziness, Headache, Seizure, Syncope Vital Signs: Vital Signs Temperature 98.1 F 04/25/17 13:59 Pulse Rate 61 04/25/17 13:59 Respiratory Rate 18 04/25/17 09:00 Blood Pressure 131/58 04/25/17 13:59 O2 Sat by Pulse Oximetry (%) 98 04/25/17 01:03 Neck: Yes: Supple Respiratory: Yes: CTA Bilaterally Gastrointestinal: Yes: Normal Bowel Sounds, Soft. No: Tenderness Cardiovascular: Yes: Regular Rate and Rhythm JVD: No Carotid Bruit: No PMI: Non-Displaced Heart Sounds: Yes: S1, S2. No: Gallop Murmur: No: Systolic Murmur, Diastolic Murmur Edema: No - Other Data Labs, Other Data: INR, PTT INR 1.03 (0.82-1.09) 04/24/17 20:28 Troponin, BNP 04/25/17 04/25/17 07:35 13:44 Troponin I < 0.02 < 0.02 ? ectopic atrial rhythm vs. lead reversal Previously normal sinus rhythm with no ST-T abnormality Assessment/Plan 1. Chest pain and back pain, etiology unclear, possible musculoskeletal 2. Patient's history of Marfans and aortic dissection, but unconfirmed and no evidence 3. History of DVT, but no evidence and no evidence of taking Warfarin as INR is normal 4. 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 No need for any anticoagulation and no need for Plavix 2. Consider Psychiatry evaluation 3. Discontinue HCTZ 4. Discontinue Atorvastatin as prior lipid panel shows LDL of 25 in 2016. May repeat lipid panel for current level 5. No need for specific cardiac therapy 6. Ask to provide evidence of prior medical records Cleveland Estrada MD
[2017-04-25] MEDS ORDERED: ATORVASTATIN CA 40 MG TABLET (FP) PO SCH (22:00)
[2017-04-26] MEDS ORDERED: PANTOPRAZOLE SODIUM 40 MG in SODIUM CHLORIDE 100 ML IVPB ONE (04:05)
--- NOTE | 2017-04-26 04:05 | HOSP ---
Subjective - Review of Symptoms Events since last encounter: called by nurse who reported pt "vomited blood". Nurse instructed pt not to flush. Upon arrival to room, pt asleep. Visualized bright red/pink substance in toilet, appeared to be powder that was dissolved in water. Does not look like blood. will order protonix for potential gastritis (NOT a GI bleed). Pain meds not to be given as pt has history of drug seeking behavior. [employer] registry check done. Only one prescription for dilaudid filled in January 2017 for 12 pills. Pt is NOT routinely on pain medications as he claims as per [employer] registry. [employer] registry reference number [id number] Physical Examination Vital Signs: Vital Signs Temperature 97.6 F 04/25/17 22:10 Pulse Rate 67 04/25/17 22:10 Respiratory Rate 20 04/25/17 22:10 Blood Pressure 132/73 04/25/17 22:10 O2 Sat by Pulse Oximetry (%) 98 04/25/17 01:03
[2017-04-26 08:03] LABS: MCH 29.1 pg (25.7-33.7); MCHC 33.7 g/dl (32.0-35.9); MEAN CELL VOLUME 86.3 fl (80-96); MEAN PLT VOLUME 7.7 fl (7.5-11.1); PLATELET COUNT 219 K/MM3 (134-434); RDW 16.2 % (11.9-15.9); WHITE BLOOD COUNT 10.5 K/mm3 (4.0-10.0)
[2017-04-26 08:22] LABS: ANION GAP 8 (8-16); CALCIUM 9.3 mg/dL (8.5-10.1); CO2 27 mmol/L (21-32); CREATININE 0.9 mg/dL (0.7-1.3); GLUCOSE,RANDOM 90 mg/dL (74-106)
[2017-04-26 08:51] VITALS: BP 119/68; PULSE 73; TEMP 97.9
[2017-04-26] MEDS: HYDROCHLOROTHIAZIDE 12.5 MG CAPSULE (FP) PO SCH (09:15)
--- NOTE | 2017-04-26 12:29 | DS ---
Physical Exam: SUBJECTIVE: Patient seen and examined. He dose not want to be seen and asked me to leave. OBJECTIVE: Vital Signs Period Temp Pulse Resp BP Sys/Agiulera Pulse Ox Last 24 Hr 97.6 F-98.1 F 60-73 18-20 119-132/58-73 99 PE - Unable to preform pt refusing Laboratory Results - last 24 hr 04/25/17 04/25/17 04/26/17 13:44 18:45 06:00 WBC 10.5 H D RBC 4.19 Hgb 12.2 Hct 36.2 MCV 86.3 MCH 29.1 MCHC 33.7 RDW 16.2 H Plt Count 219 MPV 7.7 Sodium Potassium Chloride Carbon Dioxide Anion Gap BUN Creatinine Random Glucose Calcium Troponin I < 0.02 < 0.02 04/26/17 06:00 WBC RBC Hgb Hct MCV MCH MCHC RDW Plt Count MPV Sodium 141 Potassium 4.1 Chloride 106 Carbon Dioxide 27 Anion Gap 8 BUN 23 H D Creatinine 0.9 Random Glucose 90 Calcium 9.3 Troponin I HOSPITAL COURSE: Date of Admission:04/25/17 Date of Discharge: 04/26/17 Minutes to complete discharge: 37 Discharge Summary Reason For Visit: BACK PAIN HEMATEMSIS W/NAUSEA Current Active Problems Back pain (Acute) Hematemesis with nausea (Acute) CAD (coronary artery disease) (Chronic) Hospital Course: Initial Hospital Course: Briefly, this 36 year old male with hx of DVT (not on warfarin, INR normal) a stated diagnosis of Marfans (unconfirmed) who presented with "ripping, tearing back pain radiating to jaw" after being hit by another player while playing football. He subsequently had episode of red-colored emesis (Guiac negative when tested in ER). Pt has been seen in multiple hospitals multiple times for similar complaints and has had extensive imaging (CTA, TTE, ROSALIA) which have all been negative for dissection to date. He stated that procedure for aortic dissection was performed at [facility] in [place], [place]. He mentioned about stents, but this is unconfirmed and unclear. He endorsed mild dizziness and some tingling sensation in RLE in a non-dermatomal distribution ( between mid-thigh and mid-calf). Pt was recently seen in [facility], admitted for CP with normal echo and cardiac workup. Patient at that time requested increasing doses of Dilaudid and became verbally and physically combative when they tried to wean him off. He then refused all further medical care there and was discharged home. Subsequent Hospital Course/Progress Note/Discharge Summary: Chest and back pain- possibly MSK from football Patient refused his CTA unless pre medicated for 24 hours, it was assured to him we were following the allergy protocol and he was still refusing. Serial Troponins negative Per cardiology will discontinue HCTZ, atorvastatin, and no further cardiac therapy needed Gastritis Overnight reported "vomited blood" per overnight appeared to be a powder dissolved in water, not blood. Given x1 dose of protonix for gastritis. PT ate breakfast today without issue and is about to have lunch. Psych Psych consult placed to evaluated for munchausen syndrome, discussed with patient this consult request and he stated "i do not want to see a psychiatrist and if you send him in here i will throw his ass out the window and mess him up " Dispo: - DC home Condition: Stable - Instructions Diet, Activity, Other Instructions: Please return to the ED for any new, persistent, or worsening symptoms. Follow up with your primary care doctor Disposition: HOME - Home Medications Comprehensive Discharge Medication List: Ambulatory Orders Loratadine [Claritin -] 10 mg PO DAILY #30 tablet 02/01/17 This patient is new to me today: Yes Date on this admission: 04/26/17 Emergency Visit: Yes ED Registration Date: 04/25/17 Care time: The patient presented to the Emergency Department on the above date and was hospitalized for further evaluation of their emergent condition. Critical Care patient: No - Discharge Referral Referred to [facility] Med P.C.: No
== END 2017-04-26 13:29 | disposition home or self-care (01) ==
LOC: JER 19:11 → JERBED 04-25 00:21 → J6S 04-25 01:47
PROVIDERS: ADMIT Internal Medicine; ATTEND Nurse Practitioner Acute Care
PROC: 3E033NZ Introduction of Analgesics, Hypnotics, Sedatives into Peripheral Vein, Percutaneous Approach (ICD-10-PCS; principal; 2017-04-25)
PROC: 3E033GC Introduction of Other Therapeutic Substance into Peripheral Vein, Percutaneous Approach (ICD-10-PCS; 2017-04-25)
PROC: 3E0337Z Introduction of Electrolytic and Water Balance Substance into Peripheral Vein, Percutaneous Approach (ICD-10-PCS; 2017-04-25)
DX: K92.0 Hematemesis (principal); M54.6 Pain in thoracic spine; I10 Essential (primary) hypertension; I25.10 Atherosclerotic heart disease of native coronary artery without angina pectoris; E78.5 Hyperlipidemia, unspecified; F41.9 Anxiety disorder, unspecified; Z91.013 Allergy to seafood; Z91.041 Radiographic dye allergy status; Z88.6 Allergy status to analgesic agent
CPT/HCPCS: 36415; 71020-TC; 80048; 80053; 83735; 84484; 85025; 85027; 85610; 86850; 86900; 86901; 93005; 93010; 99285-25; G0378

== ENCOUNTER 2017-11-07 15:09 | Observation (INO) | payer OTHER ==
[2017-11-07 15:17] VITALS: TEMP 97.9; BMI 32.7
--- NOTE | 2017-11-07 15:18 | PDOC ---
Rapid Medical Evaluation Time Seen by Provider: 11/07/17 15:15 Medical Evaluation: Allergies Allergy/AdvReac Type Severity Reaction Status Date / Time Fish Containing Products Allergy Intermediate Hives Verified 11/07/17 15:13 acetaminophen [From Tylenol] Allergy Verified 11/07/17 15:13 aspirin Allergy Verified 11/07/17 15:13 ibuprofen [From Motrin] Allergy Verified 11/07/17 15:13 iodine Allergy Verified 11/07/17 15:13 nitroglycerin Allergy Verified 11/07/17 15:13 NSAIDS (Non-Steroidal Allergy Verified 11/07/17 15:13 Anti-Inflamma pseudoephedrine Allergy Verified 11/07/17 15:13 CONTRAST Allergy Uncoded 11/07/17 15:13 11/07/17 15:15 Pt c/o: sudden onset of ripping chest pain from lower chest to upper abd, + nausea Pt on brief exam: VSS, Non reproducible chest discomfort, LCTA Pt ordered for : cardiac w/u Pt to proceed to the ED Discharge Disposition - Diagnosis Chest pain - Referrals - Patient Instructions - Post Discharge Activity
[2017-11-07 16:38] LABS: BASO % 0.5 % (0-2.0); EOS % 1.3 % (0-4.5); HEMATOCRIT 40.6 % (35.4-49); HEMOGLOBIN 13.8 GM/dL (11.7-16.9); MCH 29.3 pg (25.7-33.7); MEAN PLT VOLUME 7.6 fl (7.5-11.1); MONO % 8.1 % (3.8-10.2); NEUT % 75.1 % (42.8-82.8); PLATELET COUNT 208 K/MM3 (134-434); RBC 4.73 M/mm3 (4.00-5.60); RDW 16.4 % (11.9-15.9); WHITE BLOOD COUNT 6.3 K/mm3 (4.0-10.0)
[2017-11-07 16:44] LABS: PROTHROMBIN TIME (PATIENT) 11.3 SEC (9.98-11.88)
--- NOTE | 2017-11-07 16:47 | EKG ---
Test Reason : Blood Pressure : / mmHG Vent. Rate : 080 BPM Atrial Rate : 080 BPM P-R Int : 158 ms QRS Dur : 086 ms QT Int : 380 ms P-R-T Axes : 053 075 037 degrees QTc Int : 438 ms NORMAL SINUS RHYTHM NORMAL ECG WHEN COMPARED WITH ECG OF 24-APR-2017 20:34, NO SIGNIFICANT CHANGE WAS FOUND Confirmed by MD Boss Edward ([id number]) on 11/07/2017 4:47:32 PM Referred By: Confirmed By:Josemanuel Boss MD
[2017-11-07 18:49] LABS: CALCIUM 8.6 mg/dL (8.5-10.1); CHLORIDE 106 mmol/L (98-107); POTASSIUM 3.9 mmol/L (3.5-5.1); SODIUM 138 mmol/L (136-145)
[2017-11-07 18:57] LABS: ALBUMIN 3.9 g/dl (3.4-5.0); ALK PHOS 73 U/L (45-117); ANION GAP 8 (8-16); BILIRUBIN,TOTAL 0.5 mg/dL (0.2-1.0); BLOOD UREA NITROGEN 14 mg/dL (7-18); CO2 24 mmol/L (21-32); CREATININE 0.9 mg/dL (0.7-1.3); GLUCOSE,RANDOM 118 mg/dL (74-106); MAGNESIUM 1.9 mg/dL (1.8-2.4); SGOT/AST 17 U/L (15-37); SGPT/ALT 18 U/L (12-78); TOT PROT 7.1 g/dl (6.4-8.2)
--- NOTE | 2017-11-07 19:34 | PDOC ---
History of Present Illness - General History Source: Patient Exam Limitations: No Limitations - History of Present Illness Initial Comments: 11/07/17 19:46 The patient is a 36-year-old male, with a significant past medical history of HTN, hypercholesterolemia, CHF (7 stents), anxiety, Marfan syndrome, type B aortic dissection surgically repaired in 2009, and CT contrast allergy, who presents to the ED with mid-sternal chest pain that began at 1 PM this afternoon. He describes the pain as a "ripping" sensation. The patient follows up with is [facility] Dr. Ellington and his PCP is Dr. Arenas. He is compliant with all his medications but still has been feeling this sensation in his chest. The patient has been seen in the ED with similar symptoms in the past and has a severe allergic reaction towards shellfish; he needs pre- medication to get CT scans done. The patient denies any fever, chills, nausea, vomiting, diarrhea, or abdominal pain. He denies any shortness of breath or palpitations. Allergies: Fish containing products, acetaminophen, aspirin, ibuprofen, ct contrast. Social History: No reported tobacco, alcohol, or drug use. Surgical History: Aortic dissection repair, 7 stents. PCP: Dr. Arenas Check[place]: Dr. Ellington <Sunshine Miller - Last Filed: 11/07/17 20:15> - General History Source: Patient <Jose Xavier - Last Filed: 11/08/17 19:30> - General Chief Complaint: Pain, Acute Stated Complaint: CHEST PAIN Time Seen by Provider: 11/07/17 15:15 Past History <Sunshine Miller - Last Filed: 11/07/17 20:15> - Past Medical History Cardiac Disorders: Yes (CHF, 7 STENTS, 7MI, murmur,bradycardia) COPD: No HTN: Yes Hypercholesterolemia: Yes Psychiatric Problems: Yes (anxiety) - Surgical History Abdominal Surgery: Yes (AORTIC DISECTION repair) Cardiac Surgery: Yes (7 STENTS) - Family Disease History Family Disease History: Diabetes: Brother, Heart Disease: Father (marfans syndrome), Brother - Immunization History Immunization Up to Date: Yes - Suicide/Smoking/Psychosocial Hx Smoking History: Never smoked Have you smoked in the past 12 months: No Number of Cigarettes Smoked Daily: 0 'Breaking Loose' booklet given: 06/17/15 Hx Alcohol Use: No Drug/Substance Use Hx: No Substance Use Type: None Hx Substance Use Treatment: No <Jose Xavier - Last Filed: 11/08/17 19:30> - Past Medical History Allergies/Adverse Reactions: Allergies Allergy/AdvReac Type Severity Reaction Status Date / Time Fish Containing Products Allergy Intermediate Hives Verified 11/07/17 15:13 acetaminophen [From Tylenol] Allergy Verified 11/07/17 15:13 aspirin Allergy Verified 11/07/17 15:13 ibuprofen [From Motrin] Allergy Verified 11/07/17 15:13 iodine Allergy Verified 11/07/17 15:13 nitroglycerin Allergy Verified 11/07/17 15:13 NSAIDS (Non-Steroidal Allergy Verified 11/07/17 15:13 Anti-Inflamma pseudoephedrine Allergy Verified 11/07/17 15:13 CONTRAST Allergy Uncoded 11/07/17 15:13 Home Medications: Ambulatory Orders Atorvastatin Ca [Lipitor] 40 mg PO HS 11/07/17 Clopidogrel Bisulfate [Plavix -] 75 mg PO DAILY 11/07/17 Furosemide [Lasix] 40 mg PO DAILY 11/07/17 Zolpidem Tartrate [Ambien] 10 mg PO HS 11/07/17 Review of Systems - Review of Systems Able to Perform ROS?: Yes Comments:: 11/07/17 19:50 CONSTITUTIONAL: Absent: fever, chills, diaphoresis, generalized weakness, malaise, loss of appetite HEENT: Absent: rhinorrhea, nasal congestion, throat pain, throat swelling, difficulty swallowing, mouth swelling, ear pain, eye pain, visual Changes CARDIOVASCULAR: Present: midsternal chest pain Absent: syncope, palpitations, irregular heart rate, lightheadedness, peripheral edema RESPIRATORY: Absent: cough, shortness of breath, dyspnea with exertion, orthopnea, wheezing, stridor, hemoptysis GASTROINTESTINAL: Absent: abdominal pain, abdominal distension, nausea, vomiting, diarrhea, constipation, melena, hematochezia GENITOURINARY: Absent: dysuria, frequency, urgency, hesitancy, hematuria, flank pain, genital pain MUSCULOSKELETAL: Absent: myalgia, arthralgia, joint swelling SKIN: Absent: rash, itching, pallor HEMATOLOGIC/IMMUNOLOGIC: Absent: easy bleeding, easy bruising, lymphadenopathy, frequent infections ENDOCRINE: Absent: unexplained weight gain, unexplained weight loss, heat intolerance, cold intolerance NEUROLOGIC: Absent: headache, focal weakness or paresthesias, dizziness, unsteady gait, seizure, mental status changes, bladder or bowel incontinence PSYCHIATRIC: Absent: anxiety, depression, suicidal or homicidal ideation, hallucinations. <Sunshine Miller - Last Filed: 11/07/17 20:15> *Physical Exam - Vital Signs Last Vital Signs Temp Pulse Resp BP Pulse Ox 97.9 F 73 18 132/77 99 11/07/17 15:13 11/07/17 15:13 11/07/17 15:13 11/07/17 15:13 11/07/17 15:13 - Physical Exam Comments: 11/07/17 19:50 GENERAL: Well developed, well nourished. Awake and alert. No acute distress. HEENT: Normocephalic, atraumatic. PERRLA, EOMI. No conjunctival pallor. Sclera are non- icteric. Moist mucous membranes. Oropharynx is clear. NECK: Supple. Full ROM. No JVD. Carotid pulses 2+ and symmetric, without bruits. No thyromegaly. No lymphadenopathy. CARDIOVASCULAR: Regular rate and rhythm. No murmurs, rubs, or gallops. Distal pulses are 2+ and symmetric. PULMONARY: No evidence of respiratory distress. Lungs clear to auscultation bilaterally. No wheezing, rales or rhonchi. ABDOMINAL: Soft. Non-tender. Non-distended. No rebound or guarding. No organomegaly. Normoactive bowel sounds. MUSCULOSKELETAL Normal range of motion at all joints. No bony deformities or tenderness. No CVA tenderness. EXTREMITIES: No cyanosis. No clubbing. No edema. No calf tenderness. SKIN: Warm and dry. Normal capillary refill. No rashes. No jaundice. NEUROLOGICAL: Alert, awake, appropriate. PSYCHIATRIC: Cooperative. Good eye contact. Appropriate mood and affect. <Sunshine Miller - Last Filed: 11/07/17 20:15> - Vital Signs Last Vital Signs Temp Pulse Resp BP Pulse Ox 97.9 F 73 18 132/77 99 11/07/17 15:13 11/07/17 15:13 11/07/17 15:13 11/07/17 15:13 11/07/17 15:13 <Jose Xavier - Last Filed: 11/08/17 19:30> Heart Score/ECG Review - ECG Intrepretation Comment:: 11/07/17 19:51 EKG was reviewed by Dr. Xavier at 15:22. Impression: Normal sinus rhythm. Vent. Rate: 80 bpm PA Interval: 158 ms QTc: 438 ms Second EKG was reviewed by Dr. Xavier at 20:04. Impression: Normal sinus rhythm. Cannot rule out Anterior infarct, age undetermined. Vent. Rate: 76 bpm PA Interval: 158 ms QTc: 438 ms <Sunshine Miller - Last Filed: 11/07/17 20:15> ED Treatment Course - LABORATORY CBC & Chemistry Diagram: 11/07/17 16:04 11/07/17 16:04 - ADDITIONAL ORDERS Additional order review: Laboratory Results 11/07/17 11/07/17 16:04 16:04 PT with INR 11.30 INR 1.00 Sodium 138 Potassium 3.9 Chloride 106 Carbon Dioxide 24 Anion Gap 8 BUN 14 D Creatinine 0.9 Creat Clearance w eGFR > 60 Random Glucose 118 H D Calcium 8.6 Magnesium 1.9 Total Bilirubin 0.5 AST 17 D ALT 18 Alkaline Phosphatase 73 Creatine Kinase 174 Troponin I < 0.02 Total Protein 7.1 Albumin 3.9 11/07/17 16:04 RBC 4.73 MCV 86.0 MCHC 34.0 RDW 16.4 H MPV 7.6 Neutrophils % 75.1 Lymphocytes % 15.0 D Monocytes % 8.1 Eosinophils % 1.3 Basophils % 0.5 <Sunshine Miller - Last Filed: 11/07/17 20:15> - LABORATORY CBC & Chemistry Diagram: 11/07/17 16:04 11/07/17 16:04 - ADDITIONAL ORDERS Additional order review: Laboratory Results 11/07/17 11/07/17 16:04 16:04 PT with INR 11.30 INR 1.00 Sodium 138 Potassium 3.9 Chloride 106 Carbon Dioxide 24 Anion Gap 8 BUN 14 D Creatinine 0.9 Creat Clearance w eGFR > 60 Random Glucose 118 H D Calcium 8.6 Magnesium 1.9 Total Bilirubin 0.5 AST 17 D ALT 18 Alkaline Phosphatase 73 Creatine Kinase 174 Troponin I < 0.02 Total Protein 7.1 Albumin 3.9 11/07/17 16:04 RBC 4.73 MCV 86.0 MCHC 34.0 RDW 16.4 H MPV 7.6 Neutrophils % 75.1 Lymphocytes % 15.0 D Monocytes % 8.1 Eosinophils % 1.3 Basophils % 0.5 <Jose Xavier - Last Filed: 11/08/17 19:30> Medical Decision Making - Medical Decision Making 11/08/17 19:30 Dr. Xavier: The scribe's documentation has been prepared under my direction and personally reviewed by me in its entirery. I confirm that the note above accurately reflects all work, treatment, procedures, and medical decision making performed by me. <Jose Xavier - Last Filed: 11/08/17 19:30> *DC/Admit/Observation/Transfer - Attestations Scribe Attestion: 11/07/17 19:51 Documentation prepared by Sunshine Miller, acting as medical support assistant for Jose Xavier MD. <Sunshine Miller - Last Filed: 11/07/17 20:15> - Discharge Dispostion Admit: Yes <Jose Xavier - Last Filed: 11/08/17 19:30> Diagnosis at time of Disposition: Chest pain Qualifiers: Chest pain type: unspecified Qualified Code(s): R07.9 - Chest pain, unspecified - Discharge Dispostion Condition at time of disposition: Stable
[2017-11-07] MEDS ORDERED: HYDROmorphone HCL CARPU-JECT 2 MG/1 ML DISP.SYRIN IVPUSH ONE (19:40)
[2017-11-07] MEDS ORDERED: methylPREDNISolone NA SUCC 125 MG/2 ML VIAL IVPUSH ONE (19:40)
[2017-11-07] MEDS ORDERED: methylPREDNISolone NA SUCC 125 MG/2 ML VIAL ONE (19:52)
[2017-11-07] MEDS ORDERED: HYDROmorphone HCL 2 MG TABLET ONE (19:53)
[2017-11-07] MEDS ORDERED: HYDROmorphone HCL 2 MG TABLET PO STA (19:53)
--- NOTE | 2017-11-07 20:29 | HP ---
CHIEF COMPLAINT:chest pain PCP: Dr. Arenas [employer] Process Worker: Dr. Humphrey HISTORY OF PRESENT ILLNESS: 36 yo M with a significant PMHx of HTN, hypercholesterolemia, CHF (7 stents), anxiety, Marfan syndrome(unconfirmed), type B aortic dissection surgically repaired in 2009(unconfirmed), and CT contrast allergy, who presents to the ED with mid-sternal chest pain that began at 1 PM this afternoon. He describes the pain as a constant 10/10 "ripping" sensation that starts in lower sternum and radiates to mid abdomen. Alleviated by Dilaudid in ER and not associated with activity or stress. He endorses nausea and 1 episode of NBNB vomiting. He is compliant with all his medications but still has been feeling this sensation in his chest. The patient has been seen in the ED with similar symptoms and has had extensive workup in past that has been negative. He needs pre-medication to get CT scans done.He states that he was treated for PNA "few months" ago. Denies SOB, palpitations, fever or chills. ER course was notable for: (1)EKG shows NSR with no acute st or t wave abnormalities ; Q waves seen in ant. leads. (2)Troponin I (-) x1 (3)Solumedrol 125mg and Benadryl given in prep for CTA Recent Travel: Denies PAST MEDICAL HISTORY: HTN, hypercholesterolemia, CHF, anxiety, Marfan syndrome( unconfirmed) PAST SURGICAL HISTORY: Aortic dissection repair, 7 stents. Social History: Smoking:denies Alcohol:denies Drugs: denies Family History: Allergies Fish Containing Products Allergy (Intermediate, Verified 11/07/17 15:13) Hives acetaminophen [From Tylenol] Allergy (Verified 11/07/17 15:13) aspirin Allergy (Verified 11/07/17 15:13) ibuprofen [From Motrin] Allergy (Verified 11/07/17 15:13) iodine Allergy (Verified 11/07/17 15:13) nitroglycerin Allergy (Verified 11/07/17 15:13) NSAIDS (Non-Steroidal Anti-Inflamma Allergy (Verified 11/07/17 15:13) pseudoephedrine Allergy (Verified 11/07/17 15:13) CONTRAST Allergy (Uncoded 11/07/17 15:13) HOME MEDICATIONS: Home Medications Medication Instructions Recorded Atorvastatin Ca [Lipitor] 40 mg PO HS 11/07/17 Clopidogrel Bisulfate [Plavix -] 75 mg PO DAILY 11/07/17 Furosemide [Lasix] 40 mg PO DAILY 11/07/17 HYDROmorphone [Dilaudid -] 2 mg PO DAILY 11/07/17 Zolpidem Tartrate [Ambien] 10 mg PO HS 11/07/17 REVIEW OF SYSTEMS CONSTITUTIONAL: Absent: fever, chills, diaphoresis, generalized weakness, malaise, loss of appetite, weight change HEENT: Absent: rhinorrhea, nasal congestion, throat pain, throat swelling, difficulty swallowing, mouth swelling, ear pain, eye pain, visual changes CARDIOVASCULAR: + chest pain, Absent: syncope, palpitations, irregular heart rate, lightheadedness, peripheral edema RESPIRATORY: Absent: cough, shortness of breath, dyspnea with exertion, orthopnea, wheezing, stridor, hemoptysis GASTROINTESTINAL: Absent: abdominal pain, abdominal distension, nausea, vomiting, diarrhea, constipation, melena, hematochezia GENITOURINARY: Absent: dysuria, frequency, urgency, hesitancy, hematuria, flank pain, genital pain MUSCULOSKELETAL: Absent: myalgia, arthralgia, joint swelling, back pain, neck pain SKIN: Absent: rash, itching, pallor HEMATOLOGIC/IMMUNOLOGIC: Absent: easy bleeding, easy bruising, lymphadenopathy, frequent infections ENDOCRINE: Absent: unexplained weight gain, unexplained weight loss, heat intolerance, cold intolerance NEUROLOGIC: Absent: headache, focal weakness or paresthesias, dizziness, unsteady gait, seizure, mental status changes, bladder or bowel incontinence PSYCHIATRIC: Absent: anxiety, depression, suicidal or homicidal ideation, hallucinations. PHYSICAL EXAMINATION Vital Signs - 24 hr 11/07/17 15:13 Temperature 97.9 F Pulse Rate 73 Respiratory 18 Rate Blood Pressure 132/77 O2 Sat by Pulse 99 Oximetry (%) GENERAL: AAOx3, NAD HEAD: NC/AT EYES: PERRLA,EOMI, anicteric sclera EARS, NOSE, THROAT: Moist mucous membranes. NECK: supple, no jvd. LUNGS: CTAB, no wheezing or rales. HEART: RRR, NL S1S2, no m/g/r ABDOMEN: Soft, NT/ND, nl bowel sounds, no guarding, no rebound, no masses. No hepatomegaly or splenomegaly. MUSCULOSKELETAL: Normal range of motion at all joints. No bony deformities or tenderness. No CVA tenderness. LOWER EXTREMITIES: 2+ pulses, warm, well-perfused. No calf tenderness. No peripheral edema. NEUROLOGICAL: Cranial nerves II-XII intact. Normal speech. PSYCHIATRIC: Cooperative. Good eye contact. Appropriate mood and affect. SKIN: Warm, dry, normal turgor, no rashes or lesions noted, normal capillary refill. Laboratory Results - last 24 hr 11/07/17 11/07/17 11/07/17 16:04 16:04 16:04 WBC 6.3 D RBC 4.73 Hgb 13.8 D Hct 40.6 MCV 86.0 MCH 29.3 MCHC 34.0 RDW 16.4 H Plt Count 208 MPV 7.6 Neutrophils % 75.1 Lymphocytes % 15.0 D Monocytes % 8.1 Eosinophils % 1.3 Basophils % 0.5 PT with INR 11.30 INR 1.00 Sodium 138 Potassium 3.9 Chloride 106 Carbon Dioxide 24 Anion Gap 8 BUN 14 D Creatinine 0.9 Creat Clearance w eGFR > 60 Random Glucose 118 H D Calcium 8.6 Magnesium 1.9 Total Bilirubin 0.5 AST 17 D ALT 18 Alkaline Phosphatase 73 Creatine Kinase 174 Troponin I < 0.02 Total Protein 7.1 Albumin 3.9 ASSESSMENT/PLAN: 36 yo M with a significant PMHx of HTN, hypercholesterolemia, CHF (7 stents), anxiety, Marfan syndrome(unconfirmed), type B aortic dissection surgically repaired in 2009(unconfirmed), and CT contrast allergy placed on telemetry observation to rule out ACS and aortic dissection. Problem List - Problem (1) Chest pain Assessment/Plan: Chest pain not typical for ACS * Placed on telemetry observation * Cardiology Consult * trend troponin I * repeat EKG in AM * Chest CTA pending r/o aortic dissection vs. PE. * pre-medication of CTA in AM (2) HTN (hypertension) Assessment/Plan: Continue home BP meds. * Furosemide [Lasix] 40 mg PO DAILY (3) CAD (coronary artery disease) Assessment/Plan: s/p 7 stents? * Allergy to ASA * Continue Plavix. (4) DVT prophylaxis Assessment/Plan: SCD's Bilateral LE * Heparin 5000 U SQ TID Visit type - Emergency Visit Emergency Visit: Yes ED Registration Date: 11/07/17 Care time: The patient presented to the Emergency Department on the above date and was hospitalized for further evaluation of their emergent condition. - New Patient This patient is new to me today: Yes Date on this admission: 11/08/17 - Critical Care Critical Care patient: No Hospitalist Screening - Colonoscopy Questionnaire Colonoscopy Questionnaire: Colonoscopy Questionnaire - Patient: 50 - 75 years old and never had a screening colonoscopy: No History of colon or rectal polyps, or CA: No History of IBD, Crohn's disease or UC: No History of abdominal radiation therapy as a child: No - Relative: 1 with colon or rectal CA, or polyps at age 60 or younger: No Colon or rectal CA diagnosed at age 45 or younger: No Multiple relatives with colon or rectal CA: No - Outcome: Screening Result: Negative Screen
--- NOTE | 2017-11-07 21:51 | PN ---
Teaching Attending Note Name of Resident: Rashid Bello ATTENDING PHYSICIAN STATEMENT I saw and evaluated the patient. I reviewed the resident's note and discussed the case with the resident. I agree with the resident's findings and plan as documented. SUBJECTIVE: 37 yo M with Hx. of Marfans (Unconfirmed), ? Aortic dissection,? Repair, Multiple CTAs/ROSALIA (12/28) No evidence of dissection. CAD w stents?, CAD, DVT/PE who presents with tearing pain from his chest to lower abdomen. States pain began at 1 pm in the afternoon and is constant in nature. No shortness or breath or diaphoresis. No nausea, vomiting, or diarrhea. OBJECTIVE: Physical: VS: Vital Signs Period Temp Pulse Resp BP Sys/[place] Pulse Ox Last 24 Hr 97.9 F 73 18 132/77 99 GEN: NAD, Resting in bed, AA0X3 HEENT: NCAT, PERRL, Throat without erythema or exudates CARD: RRR S1, S2 RESP: CTAB ABD: BSx4, NTD to palpation EXT: - C/C/E CBCD WBC 6.3 K/mm3 (4.0-10.0) D 11/07/17 16:04 RBC 4.73 M/mm3 (4.00-5.60) 11/07/17 16:04 Hgb 13.8 GM/dL (11.7-16.9) D 11/07/17 16:04 Hct 40.6 % (35.4-49) 11/07/17 16:04 MCV 86.0 fl (80-96) 11/07/17 16:04 MCHC 34.0 g/dl (32.0-35.9) 11/07/17 16:04 RDW 16.4 % (11.9-15.9) H 11/07/17 16:04 Plt Count 208 K/MM3 (134-434) 11/07/17 16:04 MPV 7.6 fl (7.5-11.1) 11/07/17 16:04 CMP Sodium 138 mmol/L (136-145) 11/07/17 16:04 Potassium 3.9 mmol/L (3.5-5.1) 11/07/17 16:04 Chloride 106 mmol/L (98-107) 11/07/17 16:04 Carbon Dioxide 24 mmol/L (21-32) 11/07/17 16:04 Anion Gap 8 (8-16) 11/07/17 16:04 BUN 14 mg/dL (7-18) D 11/07/17 16:04 Creatinine 0.9 mg/dL (0.7-1.3) 11/07/17 16:04 Creat Clearance w eGFR > 60 (>60) 11/07/17 16:04 Random Glucose 118 mg/dL (74-106) H D 11/07/17 16:04 Calcium 8.6 mg/dL (8.5-10.1) 11/07/17 16:04 Total Bilirubin 0.5 mg/dL (0.2-1.0) 11/07/17 16:04 AST 17 U/L (15-37) D 11/07/17 16:04 ALT 18 U/L (12-78) 11/07/17 16:04 Alkaline Phosphatase 73 U/L (45-117) 11/07/17 16:04 Total Protein 7.1 g/dl (6.4-8.2) 11/07/17 16:04 Albumin 3.9 g/dl (3.4-5.0) 11/07/17 16:04 CARDIAC ENZYMES Creatine Kinase 144 IU/L (39-308) 11/07/17 21:00 Troponin I < 0.02 ng/ml (0.00-0.05) 11/07/17 21:00 EKG: NSR Q waves ant. leads Home Medications Medication Instructions Recorded Atorvastatin Ca [Lipitor] 40 mg PO HS 11/07/17 Clopidogrel Bisulfate [Plavix -] 75 mg PO DAILY 11/07/17 Furosemide [Lasix] 40 mg PO DAILY 11/07/17 HYDROmorphone [Dilaudid -] 2 mg PO DAILY 11/07/17 Zolpidem Tartrate [Ambien] 10 mg PO HS 11/07/17 ASSESSMENT AND PLAN: 37 yo M with Hx. of Marfans (Unconfirmed), ? Aortic dissection,? Repair, Multiple CTAs/ROSALIA (12/28) No evidence of dissection. CAD w stents?, CAD, DVT/PE who presents with tearing pain from his chest to lower abdomen 1.) Tearning Chest/ABD Pain - RO Dissection - Premeds for CTA - Trend Trops/EKG - Avoid A/C 2.) ?CAD/HLD - Hold Statin as last LDL was 25 - Records - C/W Home meds - Hold Plavix 3.) Maracostas Hx - Obtain records 4.) DVt Ppx - SCDS Place in Obs-Tele
[2017-11-07] MEDS ORDERED: ZOLPIDEM TARTRATE 5 MG TABLET PO SCH (22:00)
[2017-11-07] MEDS ORDERED: ATORVASTATIN CA 40 MG TABLET (FP) PO SCH (22:00)
[2017-11-07] MEDS ORDERED: morphine SULFATE 4 MG/ML VIAL IM PRN (22:04)
[2017-11-07] MEDS ORDERED: ZOLPIDEM TARTRATE 5 MG TABLET ONE (22:21)
[2017-11-07] MEDS ORDERED: ATORVASTATIN CA 40 MG TABLET (FP) ONE (22:22)
[2017-11-07] MEDS: HEPARIN NA (PORCINE) 5,000 UNITS/ML 1ML VIAL SQ SCH (23:00)
[2017-11-08] MEDS ORDERED: HEPARIN NA (PORCINE) 5,000 UNITS/ML 1ML VIAL ONE ×2 (00:13→05:24)
[2017-11-08] MEDS ORDERED: predniSONE 20 MG TABLET (UD) ONE (03:50)
[2017-11-08] MEDS: predniSONE 20 MG TABLET (UD) PO SCH ×2 (03:53→13:18)
[2017-11-08] MEDS: HEPARIN NA (PORCINE) 5,000 UNITS/ML 1ML VIAL SQ SCH (05:35)
--- NOTE | 2017-11-08 09:48 | EKG ---
Test Reason : Blood Pressure : / mmHG Vent. Rate : 076 BPM Atrial Rate : 076 BPM P-R Int : 158 ms QRS Dur : 088 ms QT Int : 390 ms P-R-T Axes : 058 073 029 degrees QTc Int : 438 ms NORMAL SINUS RHYTHM CANNOT RULE OUT ANTERIOR INFARCT , AGE UNDETERMINED ABNORMAL ECG WHEN COMPARED WITH ECG OF 07-NOV-2017 15:22, NO SIGNIFICANT CHANGE WAS FOUND Confirmed by DANY GONZALEZ, JESSICA ([id number]) on 11/08/2017 9:48:38 AM Referred By: Confirmed By:JESSICA SAENZ MD
[2017-11-08] MEDS ORDERED: FUROSEMIDE 40 MG TABLET (FP) PO SCH (10:00)
[2017-11-08] MEDS ORDERED: CLOPIDOGREL BISULFATE 75 MG TABLET (FP) PO SCH (10:00)
--- NOTE | 2017-11-08 10:38 | CON.CARD ---
Consult - History of Present Illness History of Present Illness: The patient is a 36-year-old male, with a significant past medical history of HTN, hypercholesterolemia, CHF (7 stents), anxiety, Marfan syndrome, type B aortic dissection surgically repaired in 2009, and CT contrast allergy, who presents to the ED with mid-sternal chest pain that began at 1 PM this afternoon. He describes the pain as a "ripping" sensation. The patient follows up with is his PCP is Dr. Arenas. He is compliant with all his medications but still has been feeling this sensation in his chest. The patient has been seen in the ED with similar symptoms in the past and has a severe allergic reaction towards shellfish; he needs pre-medication to get CT scans done. The patient denies any fever, chills, nausea, vomiting, diarrhea, or abdominal pain. He denies any shortness of breath or palpitations. Allergies: Fish containing products, acetaminophen, aspirin, ibuprofen, ct contrast. Social History: No reported tobacco, alcohol, or drug use. Surgical History: Aortic dissection repair, 7 stents. PCP: Dr. 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- [employer] History of Recent Travel: No Home Medications - Allergies Allergies/Adverse Reactions: Allergies Allergy/AdvReac Type Severity Reaction Status Date / Time Fish Containing Products Allergy Intermediate Hives Verified 11/07/17 15:13 acetaminophen [From Tylenol] Allergy Verified 11/07/17 15:13 aspirin Allergy Verified 11/07/17 15:13 ibuprofen [From Motrin] Allergy Verified 11/07/17 15:13 iodine Allergy Verified 11/07/17 15:13 nitroglycerin Allergy Verified 11/07/17 15:13 NSAIDS (Non-Steroidal Allergy Verified 11/07/17 15:13 Anti-Inflamma pseudoephedrine Allergy Verified 11/07/17 15:13 CONTRAST Allergy Uncoded 11/07/17 15:13 - Home Medications Home Medications: Ambulatory Orders Atorvastatin Ca [Lipitor] 40 mg PO HS 11/07/17 Clopidogrel Bisulfate [Plavix -] 75 mg PO DAILY 11/07/17 Furosemide [Lasix] 40 mg PO DAILY 11/07/17 HYDROmorphone [Dilaudid -] 2 mg PO DAILY 11/07/17 Zolpidem Tartrate [Ambien] 10 mg PO HS 11/07/17 Family Disease History - Family Disease History Family Disease History: Diabetes: Brother (1/2 brother, Marfan), Heart Disease: Father (,AorAortic Dissection- age 46), Mother (Marfan , Mis X 3, first one in her 30s), Brother Review of Systems - Review of Systems Constitutional: reports: No Symptoms Eyes: reports: No Symptoms HENT: reports: No Symptoms Neck: reports: No Symptoms Cardiovascular: reports: No Symptoms, Chest Pain Gastrointestinal: reports: No Symptoms Genitourinary: reports: No Symptoms Breasts: reports: No Symptoms Reported Musculoskeletal: reports: No Symptoms Integumentary: reports: No Symptoms Neurological: reports: No Symptoms Endocrine: reports: No Symptoms Hematology/Lymphatic: reports: No Symptoms Psychiatric: reports: No Symptoms Vital Signs: Vital Signs Temperature 97.9 F 11/07/17 15:13 Pulse Rate 84 11/08/17 07:07 Respiratory Rate 18 11/08/17 07:07 Blood Pressure 121/72 11/08/17 07:07 O2 Sat by Pulse Oximetry (%) 99 11/08/17 09:15 Constitutional: Yes: Well Nourished, No Distress, Calm Eyes: Yes: WNL, Conjunctiva Clear, EOM Intact HENT: Yes: WNL, Atraumatic, Normocephalic Neck: Yes: WNL, Supple, Trachea Midline Respiratory: Yes: WNL, Regular, CTA Bilaterally Gastrointestinal: Yes: WNL, Normal Bowel Sounds Renal/: Yes: WNL Cardiovascular: Yes: WNL, Regular Rate and Rhythm Heart Sounds: Yes: S1, S2 Musculoskeletal: Yes: WNL Extremities: Yes: WNL Integumentary: Yes: WNL Neurological: Yes: WNL, Alert, Oriented ...Motor Strength: WNL Psychiatric: Yes: WNL, Alert, Oriented - Other Data Labs, Other Data: CBC, BMP 11/07/17 16:04 11/07/17 16:04 INR, PTT INR 1.00 (0.82-1.09) 11/07/17 16:04 Troponin, BNP 11/07/17 11/07/17 11/07/17 16:04 21:00 21:00 Troponin I < 0.02 < 0.02 < 0.02 Troponin, BNP 11/07/17 11/07/17 11/07/17 16:04 21:00 21:00 Troponin I < 0.02 < 0.02 < 0.02 Laboratory Tests 11/07/17 11/07/17 11/07/17 16:04 16:04 16:04 WBC 6.3 D RBC 4.73 Hgb 13.8 D Hct 40.6 MCV 86.0 MCH 29.3 MCHC 34.0 RDW 16.4 H Plt Count 208 MPV 7.6 Neutrophils % 75.1 Lymphocytes % 15.0 D Monocytes % 8.1 Eosinophils % 1.3 Basophils % 0.5 PT with INR 11.30 INR 1.00 Sodium 138 Potassium 3.9 Chloride 106 Carbon Dioxide 24 Anion Gap 8 BUN 14 D Creatinine 0.9 Creat Clearance w eGFR > 60 Random Glucose 118 H D Calcium 8.6 Magnesium 1.9 Total Bilirubin 0.5 AST 17 D ALT 18 Alkaline Phosphatase 73 Creatine Kinase 174 Creatine Kinase Index 1.6 CK-MB (CK-2) 2.801 Troponin I < 0.02 Total Protein 7.1 Albumin 3.9 11/07/17 11/07/17 21:00 21:00 WBC RBC Hgb Hct MCV MCH MCHC RDW Plt Count MPV Neutrophils % Lymphocytes % Monocytes % Eosinophils % Basophils % PT with INR INR Sodium Potassium Chloride Carbon Dioxide Anion Gap BUN Creatinine Creat Clearance w eGFR Random Glucose Calcium Magnesium Total Bilirubin AST ALT Alkaline Phosphatase Creatine Kinase 144 Creatine Kinase Index CK-MB (CK-2) Troponin I < 0.02 < 0.02 Total Protein Albumin Imaging - Results Chest X-ray: Image Reviewed (no i/e) EKG: Image Reviewed (sr ? ant septal LA) Problem List - Problems (1) Chest pain Code(s): R07.9 - CHEST PAIN, UNSPECIFIED Qualifiers: Chest pain type: unspecified Qualified Code(s): R07.9 - Chest pain, unspecified (2) HTN (hypertension) Code(s): I10 - ESSENTIAL (PRIMARY) HYPERTENSION Qualifiers: Hypertension type: essential hypertension Qualified Code(s): I10 - Essential (primary) hypertension (3) Acute allergic reaction Code(s): T78.40XA - ALLERGY, UNSPECIFIED, INITIAL ENCOUNTER Qualifiers: Encounter type: initial encounter Qualified Code(s): T78.40XA - Allergy, unspecified, initial encounter (4) Allergic reaction Code(s): T78.40XA - ALLERGY, UNSPECIFIED, INITIAL ENCOUNTER (5) Allergic reaction caused by a drug Code(s): T78.40XA - ALLERGY, UNSPECIFIED, INITIAL ENCOUNTER Qualifiers: Encounter type: initial encounter Qualified Code(s): T78.40XA - Allergy, unspecified, initial encounter (6) Anxiety disorder Code(s): F41.9 - ANXIETY DISORDER, UNSPECIFIED Qualifiers: Anxiety disorder type: unspecified anxiety disorder Qualified Code(s): F41.9 - Anxiety disorder, unspecified (7) Back pain Code(s): M54.9 - DORSALGIA, UNSPECIFIED Qualifiers: Back pain location: thoracic back pain Chronicity: acute Back pain laterality: midline Qualified Code(s): M54.6 - Pain in thoracic spine (8) Chest pain in adult Code(s): R07.9 - CHEST PAIN, UNSPECIFIED (9) DVT (deep venous thrombosis) Code(s): I82.409 - ACUTE EMBOLISM AND THOMBOS UNSP DEEP VN UNSP LOWER EXTREMITY (10) DVT prophylaxis Code(s): UKA0016 - (11) HLD (hyperlipidemia) Code(s): E78.5 - HYPERLIPIDEMIA, UNSPECIFIED (12) Hematemesis with nausea Code(s): K92.0 - HEMATEMESIS; R11.0 - NAUSEA (13) Medication refill Code(s): Z76.0 - ENCOUNTER FOR ISSUE OF REPEAT PRESCRIPTION (14) Seizure Code(s): R56.9 - UNSPECIFIED CONVULSIONS (15) CAD (coronary artery disease) Code(s): I25.10 - ATHSCL HEART DISEASE OF [place] CORONARY ARTERY W/O ANG PCTRS Qualifiers: Coronary Disease-Associated Artery/Lesion type: [place] artery [place] vs. transplanted heart: [place] heart Associated angina: angina presence unspecified Qualified Code(s): I25.10 - Atherosclerotic heart disease of [place] coronary artery without angina pectoris Assessment/Plan cp sx multiple visits to er unclear past medical h/o r/o drug seekingbehavior Patient never saw dr. Dwyer in the office and last year was seen by different service cardiologists in [facility] ?cad aortic aneurysm repair Psych ds Plan; echo CTA chest abd telemetry will f/u
--- NOTE | 2017-11-08 10:50 | EKG ---
Test Reason : Blood Pressure : / mmHG Vent. Rate : 066 BPM Atrial Rate : 066 BPM P-R Int : 168 ms QRS Dur : 086 ms QT Int : 414 ms P-R-T Axes : 027 089 031 degrees QTc Int : 434 ms NORMAL SINUS RHYTHM NORMAL ECG WHEN COMPARED WITH ECG OF 07-NOV-2017 20:04, NO SIGNIFICANT CHANGE WAS FOUND Confirmed by JESSICA SAENZ MD ([id number]) on 11/08/2017 10:50:18 AM Referred By: Mathew JACKSON Confirmed By:JESSICA SAENZ MD
[2017-11-08 13:32] VITALS: BP 119/69; PULSE 80
--- NOTE | 2017-11-08 15:03 | PN ---
Teaching Attending Note Name of Resident: Farheen Pulliam ATTENDING PHYSICIAN STATEMENT I saw and evaluated the patient. I reviewed the resident's note and discussed the case with the resident. I agree with the resident's findings and plan as documented with exceptions below. SUBJECTIVE: Patient seen and examined, ambulating comfortably in the Ed, talking to RN, asking for pain meds, no concerns noted. When interviewed, reports epigastric pain now and initially denied chest pain and then stated it 'goes down from my chest'. no nausea, vomiting, diarrhea, palpitations, dizziness, or urinary symptoms. Tolerating diet well. OBJECTIVE: Vital Signs Period Temp Pulse Resp BP Sys/[place] Pulse Ox Last 24 Hr 97.9 F 73-84 18-18 119-132/69-77 97-99 Intake & Output 11/05/17 11/06/17 11/07/17 11/08/17 23:59 23:59 23:59 23:59 Weight 276 lb General: ambulating in the ED comfortably with no concerns or distress CVS;S1S2 regular, no rubs gallops or murmurs Chest: CTAB, no rales or wheezing, extremities: no edema, bilateral symmetric strong radial and DP pulses with no edema, erythema or tenderness Abdomen:soft, NT, ND, positive bowel sounds (reported pain on initial interview but no tenderness elicited on exam), no voluntary or involuntary guarding or rigidity, positive bowel sounds NEuro:AAOx3, facial symmetry, power 5/5 generalized, non focal exam, Psych: AAOX3, able to fully relay his symptoms and relay understanding of current findings and exam, no SI/HI Home Medication List Medication Instructions Recorded Confirmed Type Atorvastatin Ca [Lipitor] 40 mg PO HS 11/07/17 11/07/17 History Clopidogrel Bisulfate [Plavix -] 75 mg PO DAILY 11/07/17 11/07/17 History Furosemide [Lasix] 40 mg PO DAILY 11/07/17 11/07/17 History HYDROmorphone [Dilaudid -] 2 mg PO DAILY 11/07/17 11/07/17 History Zolpidem Tartrate [Ambien] 10 mg PO HS 11/07/17 11/07/17 History Active Medications Generic Name Dose Route Start Last Admin Trade Name Freq PRN Reason Stop Dose Admin Atorvastatin Calcium 40 mg 11/07/17 22:00 11/07/17 22:35 Lipitor - PO 40 mg HS [id number] Administration Laboratory Results - last 24 hr 11/07/17 11/07/17 11/07/17 16:04 16:04 16:04 WBC 6.3 D RBC 4.73 Hgb 13.8 D Hct 40.6 MCV 86.0 MCH 29.3 MCHC 34.0 RDW 16.4 H Plt Count 208 MPV 7.6 Neutrophils % 75.1 Lymphocytes % 15.0 D Monocytes % 8.1 Eosinophils % 1.3 Basophils % 0.5 PT with INR 11.30 INR 1.00 Sodium 138 Potassium 3.9 Chloride 106 Carbon Dioxide 24 Anion Gap 8 BUN 14 D Creatinine 0.9 Creat Clearance w eGFR > 60 Random Glucose 118 H D Calcium 8.6 Magnesium 1.9 Total Bilirubin 0.5 AST 17 D ALT 18 Alkaline Phosphatase 73 Creatine Kinase 174 Creatine Kinase Index 1.6 CK-MB (CK-2) 2.801 Troponin I < 0.02 Total Protein 7.1 Albumin 3.9 11/07/17 11/07/17 21:00 21:00 WBC RBC Hgb Hct MCV MCH MCHC RDW Plt Count MPV Neutrophils % Lymphocytes % Monocytes % Eosinophils % Basophils % PT with INR INR Sodium Potassium Chloride Carbon Dioxide Anion Gap BUN Creatinine Creat Clearance w eGFR Random Glucose Calcium Magnesium Total Bilirubin AST ALT Alkaline Phosphatase Creatine Kinase 144 Creatine Kinase Index CK-MB (CK-2) Troponin I < 0.02 < 0.02 Total Protein Albumin ASSESSMENT AND PLAN: 37 yom with purported h/o marfan's syndrome, aortic dissection repair, multiple prior admission with chest pain with extensive w/u, reportedly at [facility] and [facility] as well, suspicion for Manchausen's syndrome on prior admission in 04/2017 comes with chest pain, later reported epigastric pain. -Chest pain, now reporting epigastric pain -Reported h/o Marfan's syndrome/aortic dissection repair Plan: Patient reports h/o Marfan's syndrome and aortic dissection repair on multiple prior ED visits and admissions. [place] for prior narcotic seeking behavior, Manchausen's have been raised. However has had extensive imaging including ROSALIA 01/06/17, aorta and renal u/s , chest CT 01/05/17, CT abd/pelvis 12/03/16, chest/thorax CTA 07/15/16, CTA Chest/A/P 09/2015, CTA in 02/2017, stress test in 10/2015, Echo in 02/2017, 07/2016 , 09/2015 with no concerns of findings suggestive of Marfan's syndrome, aneurysmal dilatation or repair. Also no surgical scars evident on exam. Similar presentation in 04/2017 when declined CTA as was insistent on 24 hour premedication protocol and was discharged with no concerns. Again admitted with similar presentation, declined CTA as insistent on 24 hour premedication protocol. Patient has been ambulating comfortably in the hallway, has a non concerning EKG, troponins have been negative x 2, and non concerning 2D echo. Also has been tolerating diet well with normal exam including vascular checks. Current exam and presentation not suspicious for dissection or concerning etiology. Was offered psychiatry consultation on prior admission in which patient reportedly declined. Currently with stable hemodynamics, and no concerns on exam. Patient has planned follow up with new PCP Dr. Bowen, d/c home today with outpatient follow up.
--- NOTE | 2017-11-08 15:46 | DS ---
Physical Exam: SUBJECTIVE: Patient seen and examined OBJECTIVE: Vital Signs Period Temp Pulse Resp BP Sys/[place] Pulse Ox Last 24 Hr 80-84 18-18 119-121/69-72 97-99 PHYSICAL EXAM GENERAL: The patient is awake, alert, and fully oriented, in no acute distress. HEAD: Normal with no signs of trauma. EYES: PERRL, extraocular movements intact, sclera anicteric, conjunctiva clear. ENT: Ears normal, nares patent, oropharynx clear without exudates, moist mucous membranes. NECK: Trachea midline, full range of motion, supple. LUNGS: Breath sounds equal, clear to auscultation bilaterally, no wheezes, no crackles, no accessory muscle use. HEART: Regular rate and rhythm, S1, S2 without murmur, rub or gallop. ABDOMEN: Soft, nontender, nondistended, normoactive bowel sounds, no guarding, no rebound, no hepatosplenomegaly, no masses. EXTREMITIES: 2+ pulses, warm, well-perfused, no edema. NEUROLOGICAL: Cranial nerves II through XII grossly intact. Normal speech, gait not observed. PSYCH: Normal mood, normal affect. SKIN: Warm, dry, normal turgor, no rashes or lesions noted. LABS Laboratory Results - last 24 hr 11/07/17 11/07/17 11/07/17 16:04 16:04 16:04 WBC 6.3 D RBC 4.73 Hgb 13.8 D Hct 40.6 MCV 86.0 MCH 29.3 MCHC 34.0 RDW 16.4 H Plt Count 208 MPV 7.6 Neutrophils % 75.1 Lymphocytes % 15.0 D Monocytes % 8.1 Eosinophils % 1.3 Basophils % 0.5 PT with INR 11.30 INR 1.00 Sodium 138 Potassium 3.9 Chloride 106 Carbon Dioxide 24 Anion Gap 8 BUN 14 D Creatinine 0.9 Creat Clearance w eGFR > 60 Random Glucose 118 H D Calcium 8.6 Magnesium 1.9 Total Bilirubin 0.5 AST 17 D ALT 18 Alkaline Phosphatase 73 Creatine Kinase 174 Creatine Kinase Index 1.6 CK-MB (CK-2) 2.801 Troponin I < 0.02 Total Protein 7.1 Albumin 3.9 11/07/17 11/07/17 21:00 21:00 WBC RBC Hgb Hct MCV MCH MCHC RDW Plt Count MPV Neutrophils % Lymphocytes % Monocytes % Eosinophils % Basophils % PT with INR INR Sodium Potassium Chloride Carbon Dioxide Anion Gap BUN Creatinine Creat Clearance w eGFR Random Glucose Calcium Magnesium Total Bilirubin AST ALT Alkaline Phosphatase Creatine Kinase 144 Creatine Kinase Index CK-MB (CK-2) Troponin I < 0.02 < 0.02 Total Protein Albumin HOSPITAL COURSE: Date of Admission:11/07/17 Date of Discharge: 11/08/17 Discharge Summary Reason For Visit: CHEST PAIN Current Active Problems Chest pain (Acute) HTN (hypertension) (Acute) Condition: Stable - Instructions Diet, Activity, Other Instructions: Resume your regular home medications. Follow up with your primary care physician within 1 week. Please return to the Emergency Department if you have new, worsening, or concerning symptoms. Referrals: Lee Arenas MD [Primary Care Provider] - Disposition: HOME - Home Medications Comprehensive Discharge Medication List: Ambulatory Orders Atorvastatin Ca [Lipitor] 40 mg PO HS 11/07/17 Clopidogrel Bisulfate [Plavix -] 75 mg PO DAILY 11/07/17 Furosemide [Lasix] 40 mg PO DAILY 11/07/17 Zolpidem Tartrate [Ambien] 10 mg PO HS 11/07/17
== END 2017-11-08 16:40 | disposition home or self-care (01) ==
LOC: JER 15:09 → JERBED 20:03
PROVIDERS: ADMIT Internal Medicine; ATTEND Hospitalist
PROC: 3E0333Z Introduction of Anti-inflammatory into Peripheral Vein, Percutaneous Approach (ICD-10-PCS; principal; 2017-11-07)
DX: R07.9 Chest pain, unspecified (principal); I10 Essential (primary) hypertension; I25.10 Atherosclerotic heart disease of native coronary artery without angina pectoris; T50.905A Adverse effect of unspecified drugs, medicaments and biological substances, initial encounter; M54.9 Dorsalgia, unspecified; E78.5 Hyperlipidemia, unspecified; I50.9 Heart failure, unspecified; Q87.40 Marfan syndrome, unspecified; R01.1 Cardiac murmur, unspecified; R00.1 Bradycardia, unspecified; Z95.5 Presence of coronary angioplasty implant and graft; Z91.041 Radiographic dye allergy status; Z91.013 Allergy to seafood; Z88.6 Allergy status to analgesic agent; Z88.2 Allergy status to sulfonamides; Z86.79 Personal history of other diseases of the circulatory system
CPT/HCPCS: 36415; 71046-TC-FY; 80053; 82550; 82553; 83735; 84484; 85025; 85610; 93005; 93010; 93306-TC; 96374; 99285-25; G0378; J1644

== ENCOUNTER 2019-05-14 18:39 | Emergency (ER) | payer BC, OTHER ==
--- NOTE | 2019-05-14 18:47 | PDOC ---
Rapid Medical Evaluation Time Seen by Provider: 05/14/19 18:41 Medical Evaluation: Allergies Allergy/AdvReac Type Severity Reaction Status Date / Time Fish Containing Products Allergy Intermediate Hives Verified 11/07/17 15:13 acetaminophen [From Tylenol] Allergy Verified 11/07/17 15:13 aspirin Allergy Verified 11/07/17 15:13 ibuprofen [From Motrin] Allergy Verified 11/07/17 15:13 iodine Allergy Verified 11/07/17 15:13 nitroglycerin Allergy Verified 11/07/17 15:13 NSAIDS (Non-Steroidal Allergy Verified 11/07/17 15:13 Anti-Inflamma pseudoephedrine Allergy Verified 11/07/17 15:13 CONTRAST Allergy Uncoded 11/07/17 15:13 05/14/19 18:42 CC: wants CXR to get in to assisted living PE: diminished breath sounds Orders: CXR Patient to proceed to ER for evaluation. 05/14/19 18:46 Discharge Disposition - Diagnosis Decreased breath sounds - Referrals - Patient Instructions - Post Discharge Activity
[2019-05-14 18:52] VITALS: BP 100/77; PULSE 110; TEMP 98.5; BMI 38.5
--- NOTE | 2019-05-14 20:31 | PDOC ---
History of Present Illness - General Chief Complaint: Xray Stated Complaint: CHECK UP Time Seen by Provider: 05/14/19 18:41 - History of Present Illness Initial Comments: 05/14/19 20:28 Pt here for CXR to evaluate for TB so he can get into assisted living, no symptoms. Past History - Past Medical History Allergies/Adverse Reactions: Allergies Allergy/AdvReac Type Severity Reaction Status Date / Time Fish Containing Products Allergy Intermediate Hives Verified 05/14/19 18:52 acetaminophen [From Tylenol] Allergy Verified 05/14/19 18:52 aspirin Allergy Verified 05/14/19 18:52 ibuprofen [From Motrin] Allergy Verified 05/14/19 18:52 iodine Allergy Verified 05/14/19 18:52 nitroglycerin Allergy Verified 05/14/19 18:52 NSAIDS (Non-Steroidal Allergy Verified 05/14/19 18:52 Anti-Inflamma pseudoephedrine Allergy Verified 05/14/19 18:52 CONTRAST Allergy Uncoded 05/14/19 18:52 Home Medications: Ambulatory Orders Atorvastatin Ca [Lipitor] 40 mg PO HS 11/07/17 Clopidogrel Bisulfate [Plavix -] 75 mg PO DAILY 11/07/17 Furosemide [Lasix] 40 mg PO DAILY 11/07/17 Zolpidem Tartrate [Ambien] 10 mg PO HS 11/07/17 Cardiac Disorders: Yes (CHF, 7 STENTS, 7MI, murmur,bradycardia) COPD: No HTN: Yes Hypercholesterolemia: Yes Psychiatric Problems: Yes (anxiety) - Surgical History Abdominal Surgery: Yes (AORTIC DISECTION repair) Cardiac Surgery: Yes (7 STENTS) - Immunization History Immunization Up to Date: Yes - Psycho Social/Smoking Cessation Hx Smoking History: Never smoked Have you smoked in the past 12 months: No Number of Cigarettes Smoked Daily: 0 Information on smoking cessation initiated: No 'Breaking Loose' booklet given: 06/17/15 Hx Alcohol Use: No Drug/Substance Use Hx: No Substance Use Type: None Hx Substance Use Treatment: No Review of Systems - Review of Systems Constitutional: No: Fever Respiratory: No: Cough *Physical Exam - Vital Signs Last Vital Signs Temp Pulse Resp BP Pulse Ox 98.5 F 110 H 20 100/77 99 05/14/19 18:41 05/14/19 18:41 05/14/19 18:41 05/14/19 18:41 05/14/19 18:41 - Physical Exam General Appearance: Yes: Nourished, Appropriately Dressed HEENT: positive: Normal ENT Inspection Neck: positive: Supple Respiratory/Chest: negative: Respiratory Distress Musculoskeletal: positive: Normal Inspection Extremity: positive: Normal Inspection, Normal Range of Motion Integumentary: positive: Normal Color, Dry, Warm Medical Decision Making - Medical Decision Making 05/14/19 20:30 CXR clear Discharge - Discharge Information Problems reviewed: Yes Clinical Impression/Diagnosis: Normal chest x-ray Clinical Impression/Diagnosis: (Ruled Out): Decreased breath sounds Condition: Stable Disposition: HOME - Admission No - Follow up/Referral - Patient Discharge Instructions Additional Instructions: Pt has normal CXR no symptoms report faxed, Return to the emergency room should there be further issues. - Post Discharge Activity
== END 2019-05-14 20:40 | disposition home or self-care (01) ==
LOC: JERFT 18:39
DX: Z71.1 Person with feared health complaint in whom no diagnosis is made (principal); I10 Essential (primary) hypertension; Z95.1 Presence of aortocoronary bypass graft; F41.9 Anxiety disorder, unspecified; E78.00 Pure hypercholesterolemia, unspecified; I51.9 Heart disease, unspecified
CPT/HCPCS: 71046-TC-FY; 99281-25

== ENCOUNTER 2021-03-18 15:15 | Inpatient (IN) | payer OTHER ==
[2021-03-18] MEDS ORDERED: DEXAMETHASONE SOD PHOSPHATE 10 MG/1 ML VIAL IVPUSH ONE ×2 (16:34→16:35)
[2021-03-18] MEDS ORDERED: LACTATED RINGERS SOLUTION 1000 ML INFUS.BAG IV ONE (16:38)
[2021-03-18] MEDS ORDERED: DEXAMETHASONE SOD PHOSPHATE 10 MG/1 ML VIAL ONE (16:44)
[2021-03-18] MEDS ORDERED: HYDROmorphone HCL CARPU-JECT 2 MG/1 ML DISP.SYRIN IVPUSH ONE ×2 (16:46→20:50)
[2021-03-18] MEDS ORDERED: HYDROmorphone HCl 2 MG/ML VIAL ONE ×2 (17:01→20:54)
[2021-03-18 17:07] LABS: BASO % 1.3 % (0-2.0); EOS % 0.6 % (0-4.5); HEMATOCRIT 39.1 % (35.4-49); HEMOGLOBIN 13.3 GM/dL (11.7-16.9); MCH 30.1 pg (25.7-33.7); MCHC 34.1 g/dl (32.0-35.9); MEAN CELL VOLUME 88.2 fl (80-96); MEAN PLT VOLUME 6.8 fl (7.5-11.1); MONO % 7.4 % (3.8-10.2); NEUT % 72.7 % (42.8-82.8); PLATELET COUNT 221 10^3/uL (134-434); RBC 4.43 M/mm3 (4.00-5.60); RDW 14.3 % (11.9-15.9); WHITE BLOOD COUNT 10.6 K/mm3 (4.0-10.0)
[2021-03-18 17:18] LABS: INR 1.14 (0.83-1.09)
[2021-03-18 17:20] LABS: ACTIVATED PTT 28.7 SECONDS (25.2-36.5)
[2021-03-18 17:27] LABS: BLOOD UREA NITROGEN 21.8 mg/dL (7-18); CALCIUM 8.6 mg/dL (8.5-10.1)
[2021-03-18 17:31] LABS: CREATININE 1.2 mg/dL (0.55-1.3)
[2021-03-18 17:32] LABS: BILIRUBIN,TOTAL 0.7 mg/dL (0.2-1); TOT PROT 7.1 g/dl (6.4-8.2)
[2021-03-18] MEDS ORDERED: CYCLOBENZAPRINE HCL 10 MG TABLET (FP) PO ONE (21:25)
[2021-03-18] MEDS ORDERED: GABAPENTIN 300 MG CAPSULE PO ONE (21:25)
[2021-03-18] MEDS ORDERED: RIVAROXABAN 15 MG TABLET PO ONE (21:25)
[2021-03-18] MEDS ORDERED: CYCLOBENZAPRINE HCL 10 MG TABLET (FP) ONE (22:48)
[2021-03-19] MEDS: DEXAMETHASONE SOD PHOSPHATE 10 MG/1 ML VIAL IVPUSH SCH ×3 (10:45→18:30)
[2021-03-19 15:05] VITALS: BMI 39.2
[2021-03-19] MEDS ORDERED: oxyCODONE HCL 5 MG TABLET PO PRN (16:17)
[2021-03-19] MEDS: RIVAROXABAN 20 MG TABLET PO SCH (17:50)
[2021-03-19] MEDS ORDERED: methylPREDNISolone NA SUCC 1000 MG/8 ML VIAL IVPB ONE (20:00)
[2021-03-19] MEDS: ERGOCALCIFEROL (VIT D2) 50,000 UNIT (1.25 MG) CAPSULE PO SCH (20:16)
[2021-03-19] MEDS: GABAPENTIN 300 MG CAPSULE PO SCH (21:34)
[2021-03-19] MEDS: ATORVASTATIN CA 40 MG TABLET (FP) PO SCH (21:35)
[2021-03-19] MEDS: CYANOCOBALAMIN 1,000 MCG TABLET (FP) PO SCH (21:35)
[2021-03-19] MEDS: CYCLOBENZAPRINE HCL 5 MG TABLET PO SCH (21:43)
[2021-03-19] MEDS ORDERED: SENNOSIDES 8.6MG TABLET (FP) PO SCH (22:00)
[2021-03-19] MEDS ORDERED: RIVAROXABAN 20 MG TABLET PO SCH (22:00)
[2021-03-19] MEDS ORDERED: ATORVASTATIN CA 40 MG TABLET (FP) PO SCH (22:00)
[2021-03-19] MEDS ORDERED: GABAPENTIN 300 MG CAPSULE PO SCH (22:00)
[2021-03-20] MEDS: CYCLOBENZAPRINE HCL 5 MG TABLET PO SCH (05:52)
[2021-03-20] MEDS: ACETAMINOPHEN 325 MG TABLET (FP) PO PRN (08:56)
[2021-03-20] MEDS: GABAPENTIN 300 MG CAPSULE PO SCH ×2 (09:01→21:00)
[2021-03-20] MEDS: HYDROCHLOROTHIAZIDE 12.5 MG CAPSULE (FP) PO SCH (09:02)
[2021-03-20 09:38] LABS: BASO % 0.3 % (0-2.0); HEMATOCRIT 40.9 % (35.4-49); HEMOGLOBIN 13.9 GM/dL (11.7-16.9); LYMPH % 9.2 % (8-40); MCH 30.4 pg (25.7-33.7); MCHC 34.1 g/dl (32.0-35.9); MEAN CELL VOLUME 89.3 fl (80-96); MEAN PLT VOLUME 8.2 fl (7.5-11.1); MONO % 1.6 % (3.8-10.2); NEUT % 88.9 % (42.8-82.8); PLATELET COUNT 209 10^3/uL (134-434); RBC 4.58 M/mm3 (4.00-5.60); RDW 14.4 % (11.9-15.9); WHITE BLOOD COUNT 8.6 K/mm3 (4.0-10.0)
[2021-03-20] MEDS ORDERED: HYDROCHLOROTHIAZIDE 12.5 MG CAPSULE (FP) PO SCH (10:00)
[2021-03-20 10:05] LABS: ALBUMIN 3.7 g/dl (3.4-5.0); CALCIUM 8.4 mg/dL (8.5-10.1)
[2021-03-20 10:06] LABS: BLOOD UREA NITROGEN 19.7 mg/dL (7-18)
[2021-03-20 10:08] LABS: CREATININE 1.1 mg/dL (0.55-1.3)
[2021-03-20 10:09] LABS: TOT PROT 6.8 g/dl (6.4-8.2)
[2021-03-20 10:22] LABS: BILIRUBIN,TOTAL 0.3 mg/dL (0.2-1)
[2021-03-20] MEDS ORDERED: oxyCODONE HCL 5 MG TABLET PO NR (12:28)
[2021-03-20] MEDS ORDERED: ACETAMINOPHEN 325 MG TABLET (FP) PO NR (12:29)
[2021-03-20] MEDS: RIVAROXABAN 20 MG TABLET PO SCH (17:05)
[2021-03-20] MEDS ORDERED: PT OWN MED DRAWER 7, Y5N ONE (20:31)
[2021-03-20] MEDS: methylPREDNISolone NA SUCC 1000 MG/8 ML VIAL IVPB SCH (20:57)
[2021-03-20] MEDS: CYANOCOBALAMIN 1,000 MCG TABLET (FP) PO SCH (21:00)
[2021-03-20] MEDS: ATORVASTATIN CA 40 MG TABLET (FP) PO SCH (21:00)
[2021-03-20] MEDS ORDERED: oxyCODONE HCL 5 MG TABLET PO ONE (23:23)
[2021-03-21] MEDS: ACETAMINOPHEN 325 MG TABLET (FP) PO PRN ×2 (01:16→23:26)
[2021-03-21] MEDS: CYCLOBENZAPRINE HCL 10 MG TABLET (FP) PO PRN ×2 (01:35→21:35)
[2021-03-21] MEDS ORDERED: PT OWN MED DRAWER 7, Y5N ONE ×3 (09:40→21:56)
[2021-03-21] MEDS: GABAPENTIN 300 MG CAPSULE PO SCH ×2 (09:48→21:35)
[2021-03-21] MEDS: HYDROCHLOROTHIAZIDE 12.5 MG CAPSULE (FP) PO SCH (09:48)
[2021-03-21] MEDS: methylPREDNISolone NA SUCC 1000 MG/8 ML VIAL IVPB SCH ×2 (09:51→22:17)
[2021-03-21] MEDS: oxyCODONE HCL 5 MG TABLET PO PRN ×2 (13:10→21:34)
[2021-03-21] MEDS ORDERED: DOCUSATE SODIUM 100 MG CAPSULE (FP) PO PRN (15:03)
[2021-03-21] MEDS: RIVAROXABAN 20 MG TABLET PO SCH (18:23)
[2021-03-21] MEDS: CYANOCOBALAMIN 1,000 MCG TABLET (FP) PO SCH (21:35)
[2021-03-21] MEDS: ATORVASTATIN CA 40 MG TABLET (FP) PO SCH (21:35)
[2021-03-21] MEDS: SENNOSIDES 8.6MG TABLET (FP) PO PRN (21:35)
[2021-03-22] MEDS: GABAPENTIN 300 MG CAPSULE PO SCH ×2 (11:13→21:02)
[2021-03-22] MEDS: HYDROCHLOROTHIAZIDE 12.5 MG CAPSULE (FP) PO SCH (11:13)
[2021-03-22] MEDS: oxyCODONE HCL 5 MG TABLET PO PRN ×2 (11:21→21:32)
[2021-03-22] MEDS: RIVAROXABAN 20 MG TABLET PO SCH (18:00)
[2021-03-22] MEDS: ATORVASTATIN CA 40 MG TABLET (FP) PO SCH (21:02)
[2021-03-22] MEDS: CYANOCOBALAMIN 1,000 MCG TABLET (FP) PO SCH (21:02)
[2021-03-22] MEDS: methylPREDNISolone NA SUCC 1000 MG/8 ML VIAL IVPB SCH (21:02)
[2021-03-22] MEDS: ACETAMINOPHEN 325 MG TABLET (FP) PO PRN (21:33)
[2021-03-22 21:59] LABS: BASO % 0.4 % (0-2.0); HEMATOCRIT 43.1 % (35.4-49); HEMOGLOBIN 14.5 GM/dL (11.7-16.9); LYMPH % 9.5 % (8-40); MCH 29.6 pg (25.7-33.7); MCHC 33.7 g/dl (32.0-35.9); MEAN CELL VOLUME 87.8 fl (80-96); MEAN PLT VOLUME 7.3 fl (7.5-11.1); MONO % 7.8 % (3.8-10.2); NEUT % 82.3 % (42.8-82.8); PLATELET COUNT 277 10^3/uL (134-434); RBC 4.91 M/mm3 (4.00-5.60); RDW 14.5 % (11.9-15.9); WHITE BLOOD COUNT 18.3 K/mm3 (4.0-10.0)
[2021-03-22] MEDS: SENNOSIDES 8.6MG TABLET (FP) PO PRN (22:25)
[2021-03-22 22:29] LABS: CHLORIDE 105 mmol/L (98-107); SODIUM 139 mmol/L (136-145)
[2021-03-22 22:33] LABS: ALBUMIN 3.9 g/dl (3.4-5.0); ANION GAP 9 MMOL/L (8-16); BLOOD UREA NITROGEN 23.7 mg/dL (7-18); CALCIUM 9.3 mg/dL (8.5-10.1); CO2 25 mmol/L (21-32); GLUCOSE,RANDOM 158 mg/dL (74-106)
[2021-03-22 22:36] LABS: CREATININE 1.2 mg/dL (0.55-1.3); SGOT/AST 4 U/L (15-37); SGPT/ALT 23 U/L (13-61)
[2021-03-22 22:37] LABS: PHOSPHOROUS 3.4 mg/dL (2.5-4.9)
[2021-03-22 22:38] LABS: BILIRUBIN,TOTAL 0.3 mg/dL (0.2-1); TOT PROT 7.2 g/dl (6.4-8.2)
[2021-03-22 22:40] LABS: ALK PHOS 74 U/L (45-117)
[2021-03-23] MEDS: CYCLOBENZAPRINE HCL 10 MG TABLET (FP) PO PRN ×2 (02:14→23:19)
[2021-03-23] MEDS: HYDROCHLOROTHIAZIDE 12.5 MG CAPSULE (FP) PO SCH (10:28)
[2021-03-23] MEDS: GABAPENTIN 300 MG CAPSULE PO SCH ×2 (10:28→21:54)
[2021-03-23] MEDS: oxyCODONE HCL 5 MG TABLET PO PRN ×2 (10:28→23:18)
[2021-03-23] MEDS: RIVAROXABAN 20 MG TABLET PO SCH (17:46)
[2021-03-23] MEDS ORDERED: PT OWN MED DRAWER 7, Y5N ONE (21:48)
[2021-03-23] MEDS: ATORVASTATIN CA 40 MG TABLET (FP) PO SCH (21:54)
[2021-03-23] MEDS: CYANOCOBALAMIN 1,000 MCG TABLET (FP) PO SCH (21:54)
[2021-03-23] MEDS: methylPREDNISolone NA SUCC 1000 MG/8 ML VIAL IVPB SCH (21:55)
[2021-03-23] MEDS: ACETAMINOPHEN 325 MG TABLET (FP) PO PRN (23:18)
[2021-03-24] MEDS: GABAPENTIN 300 MG CAPSULE PO SCH ×2 (10:13→22:05)
[2021-03-24] MEDS: oxyCODONE HCL 5 MG TABLET PO PRN ×2 (10:14→22:11)
[2021-03-24] MEDS: HYDROCHLOROTHIAZIDE 12.5 MG CAPSULE (FP) PO SCH (10:14)
[2021-03-24] MEDS: RIVAROXABAN 20 MG TABLET PO SCH (17:42)
[2021-03-24] MEDS ORDERED: ZOLPIDEM TARTRATE 5 MG TABLET PO ONE (21:00)
[2021-03-24] MEDS: ATORVASTATIN CA 40 MG TABLET (FP) PO SCH (22:05)
[2021-03-24] MEDS: CYANOCOBALAMIN 1,000 MCG TABLET (FP) PO SCH (22:05)
[2021-03-25] MEDS: CYCLOBENZAPRINE HCL 10 MG TABLET (FP) PO PRN ×2 (03:51→21:56)
[2021-03-25] MEDS: GABAPENTIN 300 MG CAPSULE PO SCH ×2 (10:24→21:56)
[2021-03-25] MEDS: HYDROCHLOROTHIAZIDE 12.5 MG CAPSULE (FP) PO SCH (10:24)
[2021-03-25] MEDS: oxyCODONE HCL 5 MG TABLET PO PRN ×2 (10:40→21:56)
[2021-03-25] MEDS: RIVAROXABAN 20 MG TABLET PO SCH (17:14)
[2021-03-25] MEDS: CYANOCOBALAMIN 1,000 MCG TABLET (FP) PO SCH (21:56)
[2021-03-25] MEDS: SENNOSIDES 8.6MG TABLET (FP) PO PRN (21:56)
[2021-03-25] MEDS: ATORVASTATIN CA 40 MG TABLET (FP) PO SCH (21:56)
[2021-03-25] MEDS ORDERED: ZOLPIDEM TARTRATE 5 MG TABLET PO ONE (22:54)
[2021-03-25] MEDS ORDERED: MELATONIN 5 MG TABLETS PO PRN (22:54)
[2021-03-26] MEDS ORDERED: oxyCODONE HCL 5 MG TABLET PO ONE (00:15)
[2021-03-26] MEDS ORDERED: PT OWN MED DRAWER 7, Y5N ONE (10:25)
[2021-03-26] MEDS: GABAPENTIN 300 MG CAPSULE PO SCH ×2 (10:29→21:20)
[2021-03-26] MEDS: oxyCODONE HCL 5 MG TABLET PO PRN ×2 (10:29→21:33)
[2021-03-26] MEDS: HYDROCHLOROTHIAZIDE 12.5 MG CAPSULE (FP) PO SCH (10:30)
[2021-03-26] MEDS: ERGOCALCIFEROL (VIT D2) 50,000 UNIT (1.25 MG) CAPSULE PO SCH (10:30)
[2021-03-26] MEDS: ACETAMINOPHEN 325 MG TABLET (FP) PO PRN (15:03)
[2021-03-26] MEDS: RIVAROXABAN 20 MG TABLET PO SCH (18:15)
[2021-03-26] MEDS: CYANOCOBALAMIN 1,000 MCG TABLET (FP) PO SCH (21:20)
[2021-03-26] MEDS: ATORVASTATIN CA 40 MG TABLET (FP) PO SCH (21:20)
[2021-03-26] MEDS: SENNOSIDES 8.6MG TABLET (FP) PO PRN (21:20)
[2021-03-26] MEDS ORDERED: ZOLPIDEM TARTRATE 5 MG TABLET PO ONE (23:47)
[2021-03-27 07:00] VITALS: BP 109/57; PULSE 74; TEMP 97.6
[2021-03-27] MEDS: HYDROCHLOROTHIAZIDE 12.5 MG CAPSULE (FP) PO SCH (09:35)
[2021-03-27] MEDS: GABAPENTIN 300 MG CAPSULE PO SCH (09:36)
[2021-03-27] MEDS: oxyCODONE HCL 5 MG TABLET PO PRN (09:42)
== END 2021-03-27 12:15 | DRG 43 ==
LOC: JER 15:15 → JERBED 21:37 → J8W 03-19 09:27
PROVIDERS: ADMIT Internal Medicine; ATTEND Internal Medicine
DX: G35 Multiple sclerosis (principal); M54.9 Dorsalgia, unspecified; I10 Essential (primary) hypertension; I25.10 Atherosclerotic heart disease of native coronary artery without angina pectoris; E66.9 Obesity, unspecified; Z68.39 Body mass index [BMI] 39.0-39.9, adult; Q87.40 Marfan syndrome, unspecified; R56.9 Unspecified convulsions
CPT/HCPCS: 36415; 70450-TC; 71045-TC-FY; 72141-TC; 72146-TC; 72148-TC; 80053; 82607; 82746; 82962; 83735; 84100; 84439; 84443; 84484; 85025; 85610; 85730; 86850; 86900; 86901; 93005; 93010; 97116-GP; 97162-GP; 99291; C9803; J1100; U0003; U0005